=== PATIENT | male | born 1960 | race Caucasian/White ===

== ENCOUNTER 2021-08-01 17:26 | Inpatient (IN) | payer SELFPAY ==
[~2021-08-01] VITALS: Ht 188 cm; Wt 80.9 kg
[2021-08-01 18:00] LABS: BASO % 0 % (0-3); EOS # 0.1 x10^3/uL (0.0-0.7); EOS % 1 % (0-3); HEMATOCRIT 37.6 % (39.0-53.0); HEMOGLOBIN 12.6 g/dL (13.0-17.5); LYMPH # 1.3 x10^3/uL (1.0-4.8); LYMPH % 11 % (24-48); MEAN CORPUSCULAR HEMOGLOBIN 32 pg (25-35); MEAN CORPUSCULAR HGB CONC 34 g/dL (31-37); MEAN CORPUSCULAR VOLUME 96 fL (79-100); MONO # 0.8 x10^3/uL (0.0-1.1); MONO % 7 % (0-9); NEUT # 9.7 x10^3/uL (1.8-7.7); NEUT % 81 % (31-73); PLATELET COUNT 353 x10^3/uL (140-400); RED BLOOD COUNT 3.94 x10^6/uL (4.30-5.70); RED CELL DISTRIBUTION WIDTH 14.9 % (11.5-14.5); WHITE BLOOD COUNT 11.9 x10^3/uL (4.0-11.0)
[2021-08-01 18:02] LABS: BILIRUBIN,URINE NEGATIVE (NEG); CLARITY,URINE CLOUDY; COLOR,URINE YELLOW; NITRITE,URINE POSITIVE (NEG); PROTEIN,URINE 100 mg/dL (NEG-TRACE); UROBILINOGEN,URINE 0.2 mg/dL (0.2 mg/dL)
[2021-08-01 18:20] LABS: INFLUENZA A PATIENT NEGATIVE (NEGATIVE); INFLUENZA B PATIENT NEGATIVE (NEGATIVE)
[2021-08-01 18:22] LABS: BACTERIA,URINE MODERATE /HPF (0-FEW); WBC,URINE >40 /HPF (0-4)
[2021-08-01 18:23] LABS: RBC,URINE RARE /HPF (0-2)
[2021-08-01 18:24] LABS: CALCIUM 8.6 mg/dL (8.5-10.1); CREATININE 3.6 mg/dL (0.7-1.3); GFR 17.3; POTASSIUM 4.7 mmol/L (3.5-5.1)
[2021-08-01 18:30] LABS: ALBUMIN 3.7 g/dL (3.4-5.0); ALBUMIN/GLOBULIN RATIO 0.9 (1.0-1.7); MAGNESIUM 1.5 mg/dL (1.8-2.4); TOTAL BILIRUBIN 0.2 mg/dL (0.2-1.0); TOTAL PROTEIN 7.9 g/dL (6.4-8.2)
[2021-08-01 18:57] LABS: BASE EXCESS ABG -3 mmol/L (-3-3); FIO2 ABG 5L NC; HCO3 ABG 22 mmol/L (21-28); PCO2 ABG 40 mmHg (35-46); PO2 ABG 139 mmHg (65-108); SAT O2 ABG 98 % (92-99)
[2021-08-01] MEDS ORDERED: FUROSEMIDE 40 MG/4 ML VIAL. IVP ONE (19:00)
--- NOTE | 2021-08-01 19:25 | RAD ---
EXAM: AP View of the chest DATE: 08/01/2021 6:19 PM INDICATION: Reason: SHORT OF BREATH / Spl. Instructions: / History: COMPARISON: No Prior FINDINGS: The heart is not enlarged. Mediastinal and hilar contours are normal. Nodular opacity right upper lung. Emphysematous changes are seen. Nodular opacities left upper lung. No pleural effusion or pneumothorax. IMPRESSION: 1. Nodular opacity right upper lung can be further assessed by nonemergent CT. 2. Emphysematous changes are seen. Electronically signed by: Chintan Soria MD (08/01/2021 7:23 PM) LUIS FERNANDO
[2021-08-01] MEDS ORDERED: DEXTROSE 50% 25 GM / 50ML DISP.SYRIN. IV PRN (19:30)
[2021-08-01] MEDS ORDERED: SENNOSIDES 8.6 MG TABLET PO PRN (19:30)
[2021-08-01] MEDS ORDERED: PROCHLORPERAZINE 10 MG/2 ML VIAL. IV PRN (19:30)
[2021-08-01] MEDS ORDERED: DOCUSATE SODIUM 100 MG CAPSULE. PO PRN (19:30)
[2021-08-01] MEDS ORDERED: ONDANSETRON PF 4 MG/2 ML VIAL. IVP PRN ×2 (19:30→20:45)
[2021-08-01] MEDS ORDERED: ZOLPIDEM 5 MG TABLET. PO PRN (19:30)
[2021-08-01] MEDS ORDERED: LORazepam 0.5 MG TABLET PO PRN (19:30)
[2021-08-01] MEDS ORDERED: ACETAMINOPHEN 325 MG TABLET. PO PRN ×2 (19:30→20:45)
--- NOTE | 2021-08-01 19:32 | EKG ---
[facility] [address] [place] [address] Test Date: 2021-08-01 Test Time: 17:26:49 Pat Name: KAYLYN CHANCE Department: Room: Gender: M [employer] Director: : 1960 Requested By: THEODORE BARAJAS Order Number: [id number] Reading MD: Simone Baldwin Measurements Intervals [place] Rate: 98 P: 90 [place]: 126 QRS: 90 QRSD: 88 T: 50 QT: 312 QTc: 400 Interpretive Statements SINUS RHYTHM LEFT ATRIAL ABNORMALITY ABNORMAL ECG RI6.02 No previous ECG available for comparison Electronically Signed On 08-06-2021 10:07:27 MACHINE SCALLOP CUTTER by Simone Baldwin
--- NOTE | 2021-08-01 20:42 | PHYS DOC ---
Past Medical History Past Medical History: Renal Failure Past Surgical History: No Surgical History Smoking Status: Current Every Day Smoker Alcohol Use: None General Adult EDM: Chief Complaint: SHORTNESS OF BREATH HPI: HPI: Patient is a 61 year old male with history of kidney failure, urinary retention with a Vázquez catheter, current smoker, who presents to the ED today complaining of cough and shortness of breath that began yesterday and got worse today. 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 Patient denies any chest p ain, he states he has been having dry peeling skin that occurs intermittently since he was diagnosed with kidney failure. He states he is not on dialysis yet. Patient denies any fever. Review of Systems: Review of Systems: Constitutional: Denies fever or chills. [] Eyes: Denies change in visual acuity. [] HENT: Denies nasal congestion or sore throat. [] Respiratory: Reports cough and shortness of breath Cardiovascular: Denies chest pain or edema. [] GI: Denies abdominal pain, nausea, vomiting, bloody stools or diarrhea. [] : Denies dysuria. [] Musculoskeletal: Denies back pain or joint pain. [] Integument: Denies rash. [] Neurologic: Denies headache, focal weakness or sensory changes. [] Endocrine: Denies polyuria or polydipsia. [] Lymphatic: Denies swollen glands. [] Psychiatric: Denies depression or anxiety. [] Heart Score: C/O Chest Pain: N/A Risk Factors: Risk Factors: DM, Current or recent (<one month) smoker, HTN, HLP, family history of CAD, obesity. Risk Scores: Score 0 - 3: 2.5% MACE over next 6 weeks - Discharge Home Score 4 - 6: 20.3% MACE over next 6 weeks - Admit for Clinical Observation Score 7 - 10: 72.7% MACE over next 6 weeks - Early Invasive Strategies Current Medications: Current Medications Medications (Trade) Dose Ordered Sig/Lorenza Start Time Stop Time Status Last Admin Dose Admin Acetaminophen (Tylenol) 650 mg PRN Q4HRS PRN 08/01/21 19:30 Dextrose (Dextrose 50%-Water Syringe) 12.5 gm PRN Q15MIN PRN 08/01/21 19:30 Docusate Sodium (Colace) 100 mg PRN DAILY PRN 08/01/21 19:30 Furosemide (Lasix) 40 mg 1X ONCE 08/01/21 19:00 08/01/21 19:01 DC 08/01/21 19:09 40 MG Heparin Sodium (Porcine) (Heparin Sodium) 5,000 unit Q12HR 08/01/21 21:00 Lorazepam (Ativan Inj) 0.25 mg PRN Q4HRS PRN 08/01/21 19:30 Lorazepam (Ativan) 0.5 mg PRN Q6HRS PRN 08/01/21 19:30 Ondansetron HCl (Zofran) 4 mg PRN Q6HRS PRN 08/01/21 19:30 Prochlorperazine Edisylate (Compazine) 10 mg PRN Q6HRS PRN 08/01/21 19:30 Sennosides (Senna) 17.2 mg PRN BID PRN 08/01/21 19:30 Zolpidem Tartrate (Ambien) 2.5 mg PRN QHS PRN 08/01/21 19:30 Allergies: Allergies: Allergies Coded Allergies Type Severity Reaction Last Updated Verified No Known Drug Allergies 08/01/21 No Physical Exam: PE: Constitutional: Well developed, well nourished, no acute distress, non-toxic appearance. [] HENT: Normocephalic, atraumatic, bilateral external ears normal, oropharynx moist, no oral exudates, nose normal. [] Eyes: PERRLA, EOMI, conjunctiva normal, no discharge. [] Neck: Normal range of motion, no tenderness, supple, no stridor. [] Cardiovascular: Tachycardic Lungs & Thorax: Tachypneic, crackles and wheezing posterior lung bases Abdomen: Bowel sounds normal, soft, no tenderness, no masses, no pulsatile masses. [] Vázquez catheter present with the leg bag Skin: Very dry scaly skin peeling Back: No tenderness, no CVA tenderness. [] Extremities: No tenderness, no cyanosis, no clubbing, ROM intact, no edema. [] Neurologic: Alert and oriented X 3, normal motor function, normal sensory function, no focal deficits noted. [] Psychologic: Affect normal, judgement normal, mood normal. [] Current Patient Data: Labs: Laboratory Tests Test 08/01/21 17:35 08/01/21 17:50 08/01/21 18:10 White Blood Count 11.9 x10^3/uL (4.0-11.0) H Red Blood Count 3.94 x10^6/uL (4.30-5.70) L Hemoglobin 12.6 g/dL (13.0-17.5) L Hematocrit 37.6 % (39.0-53.0) L Mean Corpuscular Volume 96 fL (79-100) Mean Corpuscular Hemoglobin 32 pg (25-35) Mean Corpuscular Hemoglobin Concent 34 g/dL (31-37) Red Cell Distribution Width 14.9 % (11.5-14.5) H Platelet Count 353 x10^3/uL (140-400) Neutrophils (%) (Auto) 81 % (31-73) H Lymphocytes (%) (Auto) 11 % (24-48) L Monocytes (%) (Auto) 7 % (0-9) Eosinophils (%) (Auto) 1 % (0-3) Basophils (%) (Auto) 0 % (0-3) Neutrophils # (Auto) 9.7 x10^3/uL (1.8-7.7) H Lymphocytes # (Auto) 1.3 x10^3/uL (1.0-4.8) Monocytes # (Auto) 0.8 x10^3/uL (0.0-1.1) Eosinophils # (Auto) 0.1 x10^3/uL (0.0-0.7) Basophils # (Auto) 0.0 x10^3/uL (0.0-0.2) D-Dimer (Cira) 0.93 ug/mlFEU (0.00-0.50) H Urine Collection Type Unknown Urine Color Yellow Urine Clarity Cloudy Urine pH 6.0 (<5.0-8.0) Urine Specific [place] 1.010 (1.000-1.030) Urine Protein 100 mg/dL (NEG-TRACE) Urine Glucose (UA) Negative mg/dL (NEG) Urine Ketones (Stick) Negative mg/dL (NEG) Urine Blood Small (NEG) Urine Nitrite Positive (NEG) Urine Bilirubin Negative (NEG) Urine Urobilinogen Dipstick 0.2 mg/dL (0.2 mg/dL) Urine Leukocyte Esterase Large (NEG) Urine RBC Rare /HPF (0-2) Urine WBC >40 /HPF (0-4) Urine Squamous Epithelial Cells Occ /LPF Urine Bacteria Moderate /HPF (0-FEW) Urine Mucus Slight /LPF Sodium Level 145 mmol/L (136-145) Potassium Level 4.7 mmol/L (3.5-5.1) Chloride Level 104 mmol/L (98-107) Carbon Dioxide Level 26 mmol/L (21-32) Anion Gap 15 (6-14) H Blood Urea Nitrogen 44 mg/dL (8-26) H Creatinine 3.6 mg/dL (0.7-1.3) H Estimated GFR (Cockcroft-Gault) 17.3 BUN/Creatinine Ratio 12 (6-20) Glucose Level 110 mg/dL (70-99) H Lactic Acid Level 1.1 mmol/L (0.4-2.0) Calcium Level 8.6 mg/dL (8.5-10.1) Magnesium Level 1.5 mg/dL (1.8-2.4) L Total Bilirubin 0.2 mg/dL (0.2-1.0) Aspartate Amino Transferase (AST) 13 U/L (15-37) L Alanine Aminotransferase (ALT) 23 U/L (16-63) Alkaline Phosphatase 121 U/L (46-116) H Creatine Kinase 75 U/L (39-308) Creatine Kinase MB (Mass) 3.6 ng/mL (0.0-3.6) Creatine Kinase MB Relative Index 4.8 % (0-4) H Troponin I High Sensitivity 14 ng/L (4-75) OC-Mhu-K-Type Natriuretic Peptide 6674 pg/mL (0-124) H Total Protein 7.9 g/dL (6.4-8.2) Albumin 3.7 g/dL (3.4-5.0) Albumin/Globulin Ratio 0.9 (1.0-1.7) L Procalcitonin 0.12 ng/mL (0.00-0.10) H Influenza Type A Antigen Negative (NEGATIVE) Influenza Type B Antigen Negative (NEGATIVE) SARS-CoV-2 Antigen (Rapid) Negative (NEGATIVE) O2 Saturation 98 % (92-99) Arterial Blood pH 7.36 (7.35-7.45) Arterial Blood pCO2 at Patient Temp 40 mmHg (35-46) Arterial Blood pO2 at Patient Temp 139 mmHg (65-108) H Arterial Blood HCO3 22 mmol/L (21-28) Arterial Blood Base Excess -3 mmol/L (-3-3) FiO2 5l nc Laboratory Tests 08/01/21 17:35 Laboratory Tests 08/01/21 17:35 Vital Signs: Vital Signs Date Time Temp Pulse Resp B/P (MAP) Pulse Ox O2 Delivery O2 Flow Rate FiO2 08/01/21 17:46 99.0 109 33 184/93 (123) 97 Aerosol Mask 6.0 99.0 EKG: EK interpreted by Dr. Bermudez sinus rhythm heart rate 98 no STEMI [] Radiology/Procedures: Radiology/Procedures: []PROCEDURE: PORTABLE CHEST 1V EXAM: AP View of the chest DATE: 08/01/2021 6:19 PM INDICATION: Reason: SHORT OF BREATH / Spl. Instructions: / History: COMPARISON: No Prior FINDINGS: The heart is not enlarged. Mediastinal and hilar contours are normal. Nodular opacity right upper lung. Emphysematous changes are seen. Nodular opacities left upper lung. No pleural effusion or pneumothorax. IMPRESSION: 1. Nodular opacity right upper lung can be further assessed by nonemergent CT. 2. Emphysematous changes are seen. Electronically signed by: Chintan Chang MD (08/01/2021 7:23 PM) [facility] DICTATED and SIGNED BY: CHINTAN CHANG MD DATE: 08/01/21 [id number] 0 Course & Med Decision Making: Course & Med Decision Making Pertinent Labs and Imaging studies reviewed. 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 Patient arrives in the ED on 6 L of oxygen with O2 sats of 97%. He was given DuoNeb treatment x2 by EMS. Temperature 99.0, heart rate 109, respiration 33, blood pressure 184/93. Patient continued to be short of breath on arrival to the ED. Blood gas was obtained and he was put on a nonrebreather. He actually improved his respiration rate and O2 sats remained above 95%. We will wean him off the nonrebreather if he continues to improve Chest x-ray noted for emphysema and right upper lung nodule CBC with a WBC of 11.9, hemoglobin 12.6 with hematocrit of 37.6, BNP 6674, patient produces urine, he was given furosemide IV. Creatinine 3.6 with BUN of 44. D-dimer 0.93, VQ scan was ordered. Lactic is normal. Negative influenza A or B, negative rapid Covid. Initial UA was obtained from a Vázquez bag because patient had refused to have us to change his Vázquez catheter. He eventually accepted to have the Vázquez catheter changed and a new bag replaced, urine positive for UTI. Started on Rocephin. Spoke to Dr. Matt who accepted patient for admission, routine consult placed for nephrology Nayeli Disclaimer: Nayeli Disclaimer: This electronic medical record was generated, in whole or in part, using a voice recognition dictation system. Departure Departure Impression: Primary Impression: SOB (shortness of breath) Additional Impressions: CRF (chronic renal failure) Qualified Codes: N18.9 - Chronic kidney disease, unspecified Fluid overload Qualified Codes: E87.70 - Fluid overload, unspecified Emphysema lung Qualified Codes: J43.8 - Other emphysema Nodule of right lung Smoking addiction Disposition: ADMITTED INPATIENT Condition: STABLE Referrals: UNKNOWN PCP NAME (PCP) THEODORE BARAJAS VICE PRESIDENT AND PORTFOLIO MANAGER Aug 01, 2021 20:42
[2021-08-01] MEDS ORDERED: MORPHINE SULFATE 2 MG/ML INJ. IVP PRN (20:45)
[2021-08-01 20:49] LABS: BILIRUBIN,URINE NEGATIVE (NEG); CLARITY,URINE CLEAR; NITRITE,URINE NEGATIVE (NEG); PROTEIN,URINE NEGATIVE (NEG-TRACE); UROBILINOGEN,URINE 0.2 mg/dL (0.2 mg/dL)
[2021-08-01 20:52] LABS: COLOR,URINE STRAW
[2021-08-01 20:57] LABS: BACTERIA,URINE 0 /HPF (0-FEW); WBC,URINE 20-40 /HPF (0-4)
[2021-08-01 21:10] VITALS: BP 174/83
--- NOTE | 2021-08-01 21:30 | NUR ---
Admit from ER to [address] [place] [address] via [facility]. A/O x 4 on arrival. Pleasant. Very SOB. Wheezing. Claims he feels much better now. O2 4L NC in place. Does not use home O2. Transferred self from [facility] to bed by sliding over independently. Did have to rest to get his breath but is able to converse. 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 Alligator skin like rash noted all over body. Very dry and scaly. Explains he has had this rash in the past and he believes this is a cause from his chronic renal failure. Comes to ER with chronic Vázquez. RN replaced Vázquez while in ER. Orientated to room and call light. Reviewed POC to include O2, Tele Monitor, Lab Draws and Consults. Verbalized understanding. Resting in bed with call light at hand.
[2021-08-01] MEDS: HEPARIN for SUB-Q USE 5,000 UNIT/ML VIAL. SQ SCH (22:17)
[2021-08-01 23:00] VITALS: BP 133/67
[2021-08-02] MEDS ORDERED: cefTRIAXone IV Push 1 GM VIAL. IVP ONE (00:30)
[2021-08-02 03:00] VITALS: BP 128/69
[2021-08-02 04:13] LABS: BASO % 0 % (0-3); EOS # 0.2 x10^3/uL (0.0-0.7); EOS % 2 % (0-3); HEMATOCRIT 32.2 % (39.0-53.0); HEMOGLOBIN 10.4 g/dL (13.0-17.5); LYMPH # 1.3 x10^3/uL (1.0-4.8); LYMPH % 11 % (24-48); MEAN CORPUSCULAR HEMOGLOBIN 31 pg (25-35); MEAN CORPUSCULAR HGB CONC 32 g/dL (31-37); MEAN CORPUSCULAR VOLUME 97 fL (79-100); MONO # 0.8 x10^3/uL (0.0-1.1); MONO % 7 % (0-9); NEUT # 9.6 x10^3/uL (1.8-7.7); NEUT % 80 % (31-73); PLATELET COUNT 318 x10^3/uL (140-400); RED BLOOD COUNT 3.32 x10^6/uL (4.30-5.70); RED CELL DISTRIBUTION WIDTH 14.8 % (11.5-14.5)
[2021-08-02 04:28] LABS: CALCIUM 8.1 mg/dL (8.5-10.1); CREATININE 3.7 mg/dL (0.7-1.3); GFR 16.7; MAGNESIUM 1.5 mg/dL (1.8-2.4); PHOSPHORUS 5.3 mg/dL (2.6-4.7); POTASSIUM 4.7 mmol/L (3.5-5.1)
[2021-08-02 07:00] VITALS: BP 163/84
--- NOTE | 2021-08-02 08:28 | PDOC1 ---
History and Physical Date of Service: DOS: DATE: 08/02/21 TIME: 08:22 Chief Complaint: Chief Complain: Shortness of breath History of Present Illness: HPI: History obtained from discussion with the ED physician and chart review: 61-year-old male with no known significant past medical history except for possible kidney damage and coming in with chronic indwelling Vázquez catheter that was placed in February. Patient is a poor historian and he also has a long history of smoking. 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 Patient also has been endorsing a productive cough but he feels relatively fine and does not have any flulike symptoms. Denies fevers, nausea vomiting, abdominal pain, hematuria or bloody bowel movements. When his Vázquez was placed he states that he had low flow did not have any relief from voiding. He does state that his urine was dribbling at the time of H&P. No history of prostate cancer. He also endorses that he has been having flaky skin throughout his whole body ever since he was diagnosed with his kidney issue. Past Medical/Surgical History: PMH/PSH: Past Medical History: Renal Failure Past Surgical History: No Surgical History Allergies: Allergies: Coded Allergies: No Known Drug Allergies (Unverified , 08/01/21) Family History: Family History: Reviewed with no relevant findings Social History: Social History: Smoking Status: Current Every Day Smoker Alcohol Use: None Current Medications: Current Medications Current Medications Furosemide (Lasix) 40 mg 1X ONCE IVP Last administered on 08/01/21at 19:09; Start 08/01/21 at 19:00; Stop 08/01/21 at 19:01; Status DC Sennosides (Senna) 17.2 mg PRN BID PRN PO CONSTIPATION; Start 08/01/21 at 19:30 Docusate Sodium (Colace) 100 mg PRN DAILY PRN PO HARD STOOLS; Start 08/01/21 at 19:30 Ondansetron HCl (Zofran) 4 mg PRN Q6HRS PRN IVP NAUSEA/VOMITING, 1ST CHOICE; Start 08/01/21 at 19:30 Dextrose (Dextrose 50%-Water Syringe) 12.5 gm PRN Q15MIN PRN IV SEE COMMENTS; Start 08/01/21 at 19:30 Acetaminophen (Tylenol) 650 mg PRN Q4HRS PRN PO TEMP OVER 100.4F OR MILD PAIN; Start 08/01/21 at 19:30 Lorazepam (Ativan) 0.5 mg PRN Q6HRS PRN PO ANXIETY / AGITATION; Start 08/01/21 at 19:30 Lorazepam (Ativan Inj) 0.25 mg PRN Q4HRS PRN IV ANXIETY / AGITATION; Start 08/01/21 at 19:30 Heparin Sodium (Porcine) (Heparin Sodium) 5,000 unit Q12HR SQ Last administered on 08/01/21at 22:17; Start 08/01/21 at 21:00 Prochlorperazine Edisylate (Compazine) 10 mg PRN Q6HRS PRN IV NAUSEA/VOMITING, 2ND CHOICE; Start 08/01/21 at 19:30 Zolpidem Tartrate (Ambien) 2.5 mg PRN QHS PRN PO INSOMNIA; Start 08/01/21 at 19:30 Ondansetron HCl (Zofran) 4 mg PRN Q8HRS PRN IVP NAUSEA/VOMITING; Start 08/01/21 at 20:45; Stop 08/02/21 at 20:44 Morphine Sulfate (Morphine Sulfate) 2 mg PRN Q2HR PRN IVP PAIN; Start 08/01/21 at 20:45; Stop 08/02/21 at 20:44 Acetaminophen (Tylenol) 650 mg PRN Q4HRS PRN PO FEVER > 100.3'F; Start 08/01/21 at 20:45; Stop 08/02/21 at 20:44 Ceftriaxone Sodium (Rocephin) 1 gm 1X ONCE IVP Last administered on 08/02/21at 00:38; Start 08/02/21 at 00:30; Stop 08/02/21 at 00:31; Status DC Active Scripts Active Reported No Known Medications Prior To Admisstion (Info) Each 1 Each DAILY ROS: Review of Systems Review of System REVIEW OF SYSTEMS: GENERAL: Denies weakness SKIN: No bruising, hair changes or rashes. EYES: No blurred, double or loss of vision. NOSE AND THROAT: No history of nosebleeds, hoarseness or sore throat. HEART: No history of palpitations, chest pain or shortness of breath on exertion. LUNGS: Positive shortness of breath GASTROINTESTINAL: Denies changes in appetite, nausea, vomiting, diarrhea or constipation. GENITOURINARY: No history of frequency, urgency, hesitancy or nocturia. NEUROLOGIC: Denies history of numbness, tingling, or tremor. PSYCHIATRIC: No history of panic, anxiety or depression. ENDOCRINE: No history of heat or cold intolerance, polyuria or polydipsia. EXTREMITIES: Denies joint pain, pain on walking or stiffness. Physical Exam: Vital Signs: Vital Signs Date Time Temp Pulse Resp B/P (MAP) Pulse Ox O2 Delivery O2 Flow Rate FiO2 08/02/21 07:00 98.2 163/84 (110) 99 Nasal Cannula 4.0 98.2 08/02/21 03:00 93 18 Physcial Exam: General: Well developed, well nourished, no acute distress, well appearing HEENT: Pupils equally round and reactive to light, EOMI, no discharge, normal conjunctiva Neck: Supple, no nuchal rigidity, no JVD, trachea midline, no tenderness Cardiac: RRR, no murmurs, no gallops, no rubs Chest/Lungs: CTAB, no wheeze, no rhonchi, no crackles Abdomen: soft, non-distended, no guarding, no peritoneal signs, non-tender Back: No tenderness Extremities: Flaky skin throughout his extremities. Hyperpigmentation and some warmth. No blanching erythema. Neuro: Alert and oriented x 4, no focal deficits, normal speech Labs: Labs: Laboratory Tests Test 08/01/21 17:35 08/01/21 17:50 08/01/21 18:10 08/01/21 20:40 White Blood Count 11.9 x10^3/uL (4.0-11.0) Red Blood Count 3.94 x10^6/uL (4.30-5.70) Hemoglobin 12.6 g/dL (13.0-17.5) Hematocrit 37.6 % (39.0-53.0) Mean Corpuscular Volume 96 fL (79-100) Mean Corpuscular Hemoglobin 32 pg (25-35) Mean Corpuscular Hemoglobin Concent 34 g/dL (31-37) Red Cell Distribution Width 14.9 % (11.5-14.5) Platelet Count 353 x10^3/uL (140-400) Neutrophils (%) (Auto) 81 % (31-73) Lymphocytes (%) (Auto) 11 % (24-48) Monocytes (%) (Auto) 7 % (0-9) Eosinophils (%) (Auto) 1 % (0-3) Basophils (%) (Auto) 0 % (0-3) Neutrophils # (Auto) 9.7 x10^3/uL (1.8-7.7) Lymphocytes # (Auto) 1.3 x10^3/uL (1.0-4.8) Monocytes # (Auto) 0.8 x10^3/uL (0.0-1.1) Eosinophils # (Auto) 0.1 x10^3/uL (0.0-0.7) Basophils # (Auto) 0.0 x10^3/uL (0.0-0.2) D-Dimer (Cira) 0.93 ug/mlFEU (0.00-0.50) Urine Collection Type Unknown Unknown Urine Color Yellow Straw Urine Clarity Cloudy Clear Urine pH 6.0 (<5.0-8.0) 6.0 (<5.0-8.0) Urine Specific [place] 1.010 (1.000-1.030) <=1.005 (1.000-1.030) Urine Protein 100 mg/dL (NEG-TRACE) Negative mg/dL (NEG-TRACE) Urine Glucose (UA) Negative mg/dL (NEG) Negative mg/dL (NEG) Urine Ketones (Stick) Negative mg/dL (NEG) Negative mg/dL (NEG) Urine Blood Small (NEG) Moderate (NEG) Urine Nitrite Positive (NEG) Negative (NEG) Urine Bilirubin Negative (NEG) Negative (NEG) Urine Urobilinogen Dipstick 0.2 mg/dL (0.2 mg/dL) 0.2 mg/dL (0.2 mg/dL) Urine Leukocyte Esterase Large (NEG) Moderate (NEG) Urine RBC Rare /HPF (0-2) 3-5 /HPF (0-2) Urine WBC >40 /HPF (0-4) 20-40 /HPF (0-4) Urine Squamous Epithelial Cells Occ /LPF Urine Bacteria Moderate /HPF (0-FEW) 0 /HPF (0-FEW) Urine Mucus Slight /LPF Sodium Level 145 mmol/L (136-145) Potassium Level 4.7 mmol/L (3.5-5.1) Chloride Level 104 mmol/L (98-107) Carbon Dioxide Level 26 mmol/L (21-32) Anion Gap 15 (6-14) Blood Urea Nitrogen 44 mg/dL (8-26) Creatinine 3.6 mg/dL (0.7-1.3) Estimated GFR (Cockcroft-Gault) 17.3 BUN/Creatinine Ratio 12 (6-20) Glucose Level 110 mg/dL (70-99) Lactic Acid Level 1.1 mmol/L (0.4-2.0) Calcium Level 8.6 mg/dL (8.5-10.1) Magnesium Level 1.5 mg/dL (1.8-2.4) Total Bilirubin 0.2 mg/dL (0.2-1.0) Aspartate Amino Transf (AST/SGOT) 13 U/L (15-37) Alanine Aminotransferase (ALT/SGPT) 23 U/L (16-63) Alkaline Phosphatase 121 U/L (46-116) Creatine Kinase 75 U/L (39-308) Creatine Kinase MB (Mass) 3.6 ng/mL (0.0-3.6) Creatine Kinase MB Relative Index 4.8 % (0-4) Troponin I High Sensitivity 14 ng/L (4-75) 20 ng/L (4-75) CY-Ckn-X-Type Natriuretic Peptide 6674 pg/mL (0-124) Total Protein 7.9 g/dL (6.4-8.2) Albumin 3.7 g/dL (3.4-5.0) Albumin/Globulin Ratio 0.9 (1.0-1.7) Procalcitonin 0.12 ng/mL (0.00-0.10) Influenza Type A Antigen Negative (NEGATIVE) Influenza Type B Antigen Negative (NEGATIVE) SARS-CoV-2 Antigen (Rapid) Negative (NEGATIVE) O2 Saturation 98 % (92-99) Arterial Blood pH 7.36 (7.35-7.45) Arterial Blood pCO2 at Patient Temp 40 mmHg (35-46) Arterial Blood pO2 at Patient Temp 139 mmHg (65-108) Arterial Blood HCO3 22 mmol/L (21-28) Arterial Blood Base Excess -3 mmol/L (-3-3) FiO2 5l nc Urine Transitional Epithelial Cells Few /LPF Test 08/01/21 23:45 08/02/21 02:45 Troponin I High Sensitivity 20 ng/L (4-75) White Blood Count 12.0 x10^3/uL (4.0-11.0) Red Blood Count 3.32 x10^6/uL (4.30-5.70) Hemoglobin 10.4 g/dL (13.0-17.5) Hematocrit 32.2 % (39.0-53.0) Mean Corpuscular Volume 97 fL (79-100) Mean Corpuscular Hemoglobin 31 pg (25-35) Mean Corpuscular Hemoglobin Concent 32 g/dL (31-37) Red Cell Distribution Width 14.8 % (11.5-14.5) Platelet Count 318 x10^3/uL (140-400) Neutrophils (%) (Auto) 80 % (31-73) Lymphocytes (%) (Auto) 11 % (24-48) Monocytes (%) (Auto) 7 % (0-9) Eosinophils (%) (Auto) 2 % (0-3) Basophils (%) (Auto) 0 % (0-3) Neutrophils # (Auto) 9.6 x10^3/uL (1.8-7.7) Lymphocytes # (Auto) 1.3 x10^3/uL (1.0-4.8) Monocytes # (Auto) 0.8 x10^3/uL (0.0-1.1) Eosinophils # (Auto) 0.2 x10^3/uL (0.0-0.7) Basophils # (Auto) 0.0 x10^3/uL (0.0-0.2) Sodium Level 144 mmol/L (136-145) Potassium Level 4.7 mmol/L (3.5-5.1) Chloride Level 106 mmol/L (98-107) Carbon Dioxide Level 27 mmol/L (21-32) Anion Gap 11 (6-14) Blood Urea Nitrogen 44 mg/dL (8-26) Creatinine 3.7 mg/dL (0.7-1.3) Estimated GFR (Cockcroft-Gault) 16.7 Glucose Level 130 mg/dL (70-99) Calcium Level 8.1 mg/dL (8.5-10.1) Phosphorus Level 5.3 mg/dL (2.6-4.7) Magnesium Level 1.5 mg/dL (1.8-2.4) Laboratory Tests Test 08/01/21 17:35 08/01/21 17:50 08/01/21 18:10 08/01/21 20:40 White Blood Count 11.9 x10^3/uL (4.0-11.0) Red Blood Count 3.94 x10^6/uL (4.30-5.70) Hemoglobin 12.6 g/dL (13.0-17.5) Hematocrit 37.6 % (39.0-53.0) Mean Corpuscular Volume 96 fL (79-100) Mean Corpuscular Hemoglobin 32 pg (25-35) Mean Corpuscular Hemoglobin Concent 34 g/dL (31-37) Red Cell Distribution Width 14.9 % (11.5-14.5) Platelet Count 353 x10^3/uL (140-400) Neutrophils (%) (Auto) 81 % (31-73) Lymphocytes (%) (Auto) 11 % (24-48) Monocytes (%) (Auto) 7 % (0-9) Eosinophils (%) (Auto) 1 % (0-3) Basophils (%) (Auto) 0 % (0-3) Neutrophils # (Auto) 9.7 x10^3/uL (1.8-7.7) Lymphocytes # (Auto) 1.3 x10^3/uL (1.0-4.8) Monocytes # (Auto) 0.8 x10^3/uL (0.0-1.1) Eosinophils # (Auto) 0.1 x10^3/uL (0.0-0.7) Basophils # (Auto) 0.0 x10^3/uL (0.0-0.2) D-Dimer (Cira) 0.93 ug/mlFEU (0.00-0.50) Urine Collection Type Unknown Unknown Urine Color Yellow Straw Urine Clarity Cloudy Clear Urine pH 6.0 (<5.0-8.0) 6.0 (<5.0-8.0) Urine Specific [place] 1.010 (1.000-1.030) <=1.005 (1.000-1.030) Urine Protein 100 mg/dL (NEG-TRACE) Negative mg/dL (NEG-TRACE) Urine Glucose (UA) Negative mg/dL (NEG) Negative mg/dL (NEG) Urine Ketones (Stick) Negative mg/dL (NEG) Negative mg/dL (NEG) Urine Blood Small (NEG) Moderate (NEG) Urine Nitrite Positive (NEG) Negative (NEG) Urine Bilirubin Negative (NEG) Negative (NEG) Urine Urobilinogen Dipstick 0.2 mg/dL (0.2 mg/dL) 0.2 mg/dL (0.2 mg/dL) Urine Leukocyte Esterase Large (NEG) Moderate (NEG) Urine RBC Rare /HPF (0-2) 3-5 /HPF (0-2) Urine WBC >40 /HPF (0-4) 20-40 /HPF (0-4) Urine Squamous Epithelial Cells Occ /LPF Urine Bacteria Moderate /HPF (0-FEW) 0 /HPF (0-FEW) Urine Mucus Slight /LPF Sodium Level 145 mmol/L (136-145) Potassium Level 4.7 mmol/L (3.5-5.1) Chloride Level 104 mmol/L (98-107) Carbon Dioxide Level 26 mmol/L (21-32) Anion Gap 15 (6-14) Blood Urea Nitrogen 44 mg/dL (8-26) Creatinine 3.6 mg/dL (0.7-1.3) Estimated GFR (Cockcroft-Gault) 17.3 BUN/Creatinine Ratio 12 (6-20) Glucose Level 110 mg/dL (70-99) Lactic Acid Level 1.1 mmol/L (0.4-2.0) Calcium Level 8.6 mg/dL (8.5-10.1) Magnesium Level 1.5 mg/dL (1.8-2.4) Total Bilirubin 0.2 mg/dL (0.2-1.0) Aspartate Amino Transf (AST/SGOT) 13 U/L (15-37) Alanine Aminotransferase (ALT/SGPT) 23 U/L (16-63) Alkaline Phosphatase 121 U/L (46-116) Creatine Kinase 75 U/L (39-308) Creatine Kinase MB (Mass) 3.6 ng/mL (0.0-3.6) Creatine Kinase MB Relative Index 4.8 % (0-4) Troponin I High Sensitivity 14 ng/L (4-75) 20 ng/L (4-75) LZ-Wor-E-Type Natriuretic Peptide 6674 pg/mL (0-124) Total Protein 7.9 g/dL (6.4-8.2) Albumin 3.7 g/dL (3.4-5.0) Albumin/Globulin Ratio 0.9 (1.0-1.7) Procalcitonin 0.12 ng/mL (0.00-0.10) Influenza Type A Antigen Negative (NEGATIVE) Influenza Type B Antigen Negative (NEGATIVE) SARS-CoV-2 Antigen (Rapid) Negative (NEGATIVE) O2 Saturation 98 % (92-99) Arterial Blood pH 7.36 (7.35-7.45) Arterial Blood pCO2 at Patient Temp 40 mmHg (35-46) Arterial Blood pO2 at Patient Temp 139 mmHg (65-108) Arterial Blood HCO3 22 mmol/L (21-28) Arterial Blood Base Excess -3 mmol/L (-3-3) FiO2 5l nc Urine Transitional Epithelial Cells Few /LPF Test 08/01/21 23:45 08/02/21 02:45 Troponin I High Sensitivity 20 ng/L (4-75) White Blood Count 12.0 x10^3/uL (4.0-11.0) Red Blood Count 3.32 x10^6/uL (4.30-5.70) Hemoglobin 10.4 g/dL (13.0-17.5) Hematocrit 32.2 % (39.0-53.0) Mean Corpuscular Volume 97 fL (79-100) Mean Corpuscular Hemoglobin 31 pg (25-35) Mean Corpuscular Hemoglobin Concent 32 g/dL (31-37) Red Cell Distribution Width 14.8 % (11.5-14.5) Platelet Count 318 x10^3/uL (140-400) Neutrophils (%) (Auto) 80 % (31-73) Lymphocytes (%) (Auto) 11 % (24-48) Monocytes (%) (Auto) 7 % (0-9) Eosinophils (%) (Auto) 2 % (0-3) Basophils (%) (Auto) 0 % (0-3) Neutrophils # (Auto) 9.6 x10^3/uL (1.8-7.7) Lymphocytes # (Auto) 1.3 x10^3/uL (1.0-4.8) Monocytes # (Auto) 0.8 x10^3/uL (0.0-1.1) Eosinophils # (Auto) 0.2 x10^3/uL (0.0-0.7) Basophils # (Auto) 0.0 x10^3/uL (0.0-0.2) Sodium Level 144 mmol/L (136-145) Potassium Level 4.7 mmol/L (3.5-5.1) Chloride Level 106 mmol/L (98-107) Carbon Dioxide Level 27 mmol/L (21-32) Anion Gap 11 (6-14) Blood Urea Nitrogen 44 mg/dL (8-26) Creatinine 3.7 mg/dL (0.7-1.3) Estimated GFR (Cockcroft-Gault) 16.7 Glucose Level 130 mg/dL (70-99) Calcium Level 8.1 mg/dL (8.5-10.1) Phosphorus Level 5.3 mg/dL (2.6-4.7) Magnesium Level 1.5 mg/dL (1.8-2.4) Images: Images PROCEDURE: PORTABLE CHEST 1V IMPRESSION: 1. Nodular opacity right upper lung can be further assessed by nonemergent CT. 2. Emphysematous changes are seen. Assessment/Plan Assessment/Plan 92Acute hypoxic respiratory failure Concern for CAP, possible gram-negative organisms Acute on chronic kidney injury, no baseline established Hypomagnesemia Tobacco misuse History of urinary retention, concerning for BPH Nodular opacity in the right upper lung, will need CT scanning at some point as outpatient Admit to hospitalist service for further management start empiric IV antibiotics Sputum cultures Pending Legionella urine antigen and MRSA screen Nephrology consult Strict I's and O's We will continue Vázquez and start Flomax for now Avoid nephrotoxic agents Monitor urine output Post void bladder scan to rule out obstructive uropathy Pending renal ultrasound O2 supplementation to maintain O2 saturations 92% Heparin for DVT prophylaxis ADA diet CODE STATUS full Discussed with RN and SW Disposition inpatient management as above DPOA: Smoking cessation: Total time spent was 12 minutes in face to face counseling. Patient has agreed to consider nicotine patches/gum or to start on Varnicline when discharged Justifications for Admission Other Justification Acute renal failure RENNY BUSH MD Aug 02, 2021 08:28
[2021-08-02 08:52] LABS: CHOLESTEROL/HDL RATIO 3.1
--- NOTE | 2021-08-02 09:11 | PDOC2 ---
CARDIAC CONSULT DATE OF CONSULT Date of Consult DATE: 08/02/21 TIME: 09:03 REASON FOR CONSULT Reason for Consult: CHF REFERRING PHYSICIAN Referring Physician: Shaka SOURCE Source: Chart review, Patient HISTORY OF PRESENT ILLNESS HISTORY OF PRESENT ILLNESS This is a pleasant 61 yo male admitted for complains of shortness of breath and cough. No significant peripheral edema. No orthopnea. Has been having chills. Has been vaccinated x1 out of 2 for covid-19 vaccine last month due for the next one. He has chronic renal failure and appears to be worse now. He has ran out of his kidney meds 2 weeks ago. 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 He has been coughing out green phlegm. No hx of CAD, VTE or arrhythmias. Denies HLP or DM. PAST MEDICAL HISTORY Renal/: Chronic renal insuff PAST SURGICAL HISTORY Past Surgical History: No pertinent history FAMILY HISTORY Family History noncontributory to CV SOCIAL HISTORY Smoke: <1 pack per day ALCOHOL: none Drugs: None CURRENT MEDICATIONS CURRENT MEDICATIONS Current Medications Medications (Trade) Dose Ordered Sig/Lorenza Route PRN Reason Start Time Stop Time Status Last Admin Dose Admin Furosemide (Lasix) 40 mg 1X ONCE IVP 08/01/21 19:00 08/01/21 19:01 DC 08/01/21 19:09 Heparin Sodium (Porcine) (Heparin Sodium) 5,000 unit Q12HR SQ 08/01/21 21:00 08/01/21 22:17 Ceftriaxone Sodium (Rocephin) 1 gm 1X ONCE IVP 08/02/21 00:30 08/02/21 00:31 DC 08/02/21 00:38 ALLERGIES ALLERGIES: Coded Allergies: No Known Drug Allergies (Unverified , 08/01/21) ROS Review of System 14 point ROS evaluated with pertinent positives noted per HPI PHYSICAL EXAM General: Alert, Oriented X3, Cooperative, No acute distress HEENT: Atraumatic, Mucous membr. moist/pink Lungs: Other (diffuse wheeze) Heart: Regular rate (SR), Other (distant heart sounds) Abdomen: Soft Extremities: No cyanosis, No edema Skin: Other (generalized skin desqumation) Neuro: Normal speech, Sensation intact Psych/Mental Status: Mental status NL, Mood NL MUSCULOSKELETAL: Osteoarthritic changes both hands VITALS/I&O VITALS/I&O: Vital Signs Date Time Temp Pulse Resp B/P (MAP) Pulse Ox O2 Delivery O2 Flow Rate FiO2 08/02/21 07:00 98.2 163/84 (110) 99 Nasal Cannula 4.0 98.2 08/02/21 03:00 93 18 I & O 08/01/21 08/01/21 08/02/21 15:00 23:00 07:00 Intake Total 400 ml Output Total 1200 ml Balance -800 ml LABS Lab: Laboratory Tests Test 08/01/21 17:35 08/01/21 17:50 08/01/21 18:10 08/01/21 20:40 White Blood Count 11.9 x10^3/uL (4.0-11.0) H Red Blood Count 3.94 x10^6/uL (4.30-5.70) L Hemoglobin 12.6 g/dL (13.0-17.5) L Hematocrit 37.6 % (39.0-53.0) L Mean Corpuscular Volume 96 fL (79-100) Mean Corpuscular Hemoglobin 32 pg (25-35) Mean Corpuscular Hemoglobin Concent 34 g/dL (31-37) Red Cell Distribution Width 14.9 % (11.5-14.5) H Platelet Count 353 x10^3/uL (140-400) Neutrophils (%) (Auto) 81 % (31-73) H Lymphocytes (%) (Auto) 11 % (24-48) L Monocytes (%) (Auto) 7 % (0-9) Eosinophils (%) (Auto) 1 % (0-3) Basophils (%) (Auto) 0 % (0-3) Neutrophils # (Auto) 9.7 x10^3/uL (1.8-7.7) H Lymphocytes # (Auto) 1.3 x10^3/uL (1.0-4.8) Monocytes # (Auto) 0.8 x10^3/uL (0.0-1.1) Eosinophils # (Auto) 0.1 x10^3/uL (0.0-0.7) Basophils # (Auto) 0.0 x10^3/uL (0.0-0.2) D-Dimer (Cira) 0.93 ug/mlFEU (0.00-0.50) H Urine Collection Type Unknown Unknown Urine Color Yellow Straw Urine Clarity Cloudy Clear Urine pH 6.0 (<5.0-8.0) 6.0 (<5.0-8.0) Urine Specific [place] 1.010 (1.000-1.030) <=1.005 (1.000-1.030) Urine Protein 100 mg/dL (NEG-TRACE) Negative mg/dL (NEG-TRACE) Urine Glucose (UA) Negative mg/dL (NEG) Negative mg/dL (NEG) Urine Ketones (Stick) Negative mg/dL (NEG) Negative mg/dL (NEG) Urine Blood Small (NEG) Moderate (NEG) Urine Nitrite Positive (NEG) Negative (NEG) Urine Bilirubin Negative (NEG) Negative (NEG) Urine Urobilinogen Dipstick 0.2 mg/dL (0.2 mg/dL) 0.2 mg/dL (0.2 mg/dL) Urine Leukocyte Esterase Large (NEG) Moderate (NEG) Urine RBC Rare /HPF (0-2) 3-5 /HPF (0-2) Urine WBC >40 /HPF (0-4) 20-40 /HPF (0-4) Urine Squamous Epithelial Cells Occ /LPF Urine Bacteria Moderate /HPF (0-FEW) 0 /HPF (0-FEW) Urine Mucus Slight /LPF Sodium Level 145 mmol/L (136-145) Potassium Level 4.7 mmol/L (3.5-5.1) Chloride Level 104 mmol/L (98-107) Carbon Dioxide Level 26 mmol/L (21-32) Anion Gap 15 (6-14) H Blood Urea Nitrogen 44 mg/dL (8-26) H Creatinine 3.6 mg/dL (0.7-1.3) H Estimated GFR (Cockcroft-Gault) 17.3 BUN/Creatinine Ratio 12 (6-20) Glucose Level 110 mg/dL (70-99) H Lactic Acid Level 1.1 mmol/L (0.4-2.0) Calcium Level 8.6 mg/dL (8.5-10.1) Magnesium Level 1.5 mg/dL (1.8-2.4) L Total Bilirubin 0.2 mg/dL (0.2-1.0) Aspartate Amino Transferase (AST) 13 U/L (15-37) L Alanine Aminotransferase (ALT) 23 U/L (16-63) Alkaline Phosphatase 121 U/L (46-116) H Creatine Kinase 75 U/L (39-308) Creatine Kinase MB (Mass) 3.6 ng/mL (0.0-3.6) Creatine Kinase MB Relative Index 4.8 % (0-4) H Troponin I High Sensitivity 14 ng/L (4-75) 20 ng/L (4-75) FO-Vgp-C-Type Natriuretic Peptide 6674 pg/mL (0-124) H Total Protein 7.9 g/dL (6.4-8.2) Albumin 3.7 g/dL (3.4-5.0) Albumin/Globulin Ratio 0.9 (1.0-1.7) L Procalcitonin 0.12 ng/mL (0.00-0.10) H Influenza Type A Antigen Negative (NEGATIVE) Influenza Type B Antigen Negative (NEGATIVE) SARS-CoV-2 Antigen (Rapid) Negative (NEGATIVE) O2 Saturation 98 % (92-99) Arterial Blood pH 7.36 (7.35-7.45) Arterial Blood pCO2 at Patient Temp 40 mmHg (35-46) Arterial Blood pO2 at Patient Temp 139 mmHg (65-108) H Arterial Blood HCO3 22 mmol/L (21-28) Arterial Blood Base Excess -3 mmol/L (-3-3) FiO2 5l nc Urine Transitional Epithelial Cells Few /LPF Test 08/01/21 23:45 08/02/21 02:45 Troponin I High Sensitivity 20 ng/L (4-75) White Blood Count 12.0 x10^3/uL (4.0-11.0) H Red Blood Count 3.32 x10^6/uL (4.30-5.70) L Hemoglobin 10.4 g/dL (13.0-17.5) L Hematocrit 32.2 % (39.0-53.0) L Mean Corpuscular Volume 97 fL (79-100) Mean Corpuscular Hemoglobin 31 pg (25-35) Mean Corpuscular Hemoglobin Concent 32 g/dL (31-37) Red Cell Distribution Width 14.8 % (11.5-14.5) H Platelet Count 318 x10^3/uL (140-400) Neutrophils (%) (Auto) 80 % (31-73) H Lymphocytes (%) (Auto) 11 % (24-48) L Monocytes (%) (Auto) 7 % (0-9) Eosinophils (%) (Auto) 2 % (0-3) Basophils (%) (Auto) 0 % (0-3) Neutrophils # (Auto) 9.6 x10^3/uL (1.8-7.7) H Lymphocytes # (Auto) 1.3 x10^3/uL (1.0-4.8) Monocytes # (Auto) 0.8 x10^3/uL (0.0-1.1) Eosinophils # (Auto) 0.2 x10^3/uL (0.0-0.7) Basophils # (Auto) 0.0 x10^3/uL (0.0-0.2) Sodium Level 144 mmol/L (136-145) Potassium Level 4.7 mmol/L (3.5-5.1) Chloride Level 106 mmol/L (98-107) Carbon Dioxide Level 27 mmol/L (21-32) Anion Gap 11 (6-14) Blood Urea Nitrogen 44 mg/dL (8-26) H Creatinine 3.7 mg/dL (0.7-1.3) H Estimated GFR (Cockcroft-Gault) 16.7 Glucose Level 130 mg/dL (70-99) H Calcium Level 8.1 mg/dL (8.5-10.1) L Phosphorus Level 5.3 mg/dL (2.6-4.7) H Magnesium Level 1.5 mg/dL (1.8-2.4) L Triglycerides Level 66 mg/dL (0-150) Cholesterol Level 111 mg/dL (0-200) LDL Cholesterol, Calculated 62 mg/dL (0-100) VLDL Cholesterol, Calculated 13 mg/dL (0-40) Non-HDL Cholesterol Calculated 75 mg/dL (0-129) HDL Cholesterol 36 mg/dL (40-60) L Cholesterol/HDL Ratio 3.1 Thyroid Stimulating Hormone (TSH) 0.368 uIU/mL (0.358-3.74) Laboratory Tests 08/01/21 17:35 08/02/21 02:45 Laboratory Tests 08/01/21 17:35 08/02/21 02:45 ASSESSMENT/PLAN ASSESSMENT/PLAN 1. Suspect Pneumonia 2. BRANDY on CKD: unclear baseline 3. Tobaccoism with likely COPD 4. Hypomagnesemia 5. Possible chronic diastolic CHF: compensated. SOA more from #1 6. Chronic UTI with rolle with associated urinary retention Recommendations TTE, FLP Replace Mg Consult nephrology ZEHRA GRAJEDA [employer] Aug 02, 2021 09:11
--- NOTE | 2021-08-02 09:29 | PDOC2 ---
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 that began 1 day prior to presenttaing to the ER . Patient arrives in the ED on 6 L of oxygen with O2 sats of 97%. He was given DuoNeb treatment x2 by EMS. He continued to be short of breath on arrival to the ED. He was put on a nonrebreather , later improved and currently on O2 Denies any edema. No orthopnea. Denies Fever , having some chills. Denies N/V/D. No abdominal pain. He has indwelling Rolle states placed in February and was Dx with Abnormal Kidney function . Prior to that he never had any Kidney issues. He states he was Hospitalized again approx 1 mo back with decline in Kidney function from 18%--> 9% . He states rolle ws placed as he couldnt Urinate . Unable to give any more details. Denies DM, HTN . Denies Hx of Kidney stones. He takes Advil 2-7 tabs/week for headache Has been vaccinated x1 out of 2 for covid-19 vaccine last month due for the next one. Past Medical History Past Medical History Chronic renal insuff- Dx in February 2o21 per patient Family History Family History noncontributory Social History Social History Smoke: <1 pack per day ALCOHOL: none Drugs: None Current Problem List Problem List Problems Medical Problems: (1) Emphysema lung Status: Acute (2) Nodule of right lung Status: Acute (3) Smoking addiction Status: Acute Current Medications Current Medications Current Medications Furosemide (Lasix) 40 mg 1X ONCE IVP Last administered on 08/01/21at 19:09; Start 08/01/21 at 19:00; Stop 08/01/21 at 19:01; Status DC Sennosides (Senna) 17.2 mg PRN BID PRN PO CONSTIPATION; Start 08/01/21 at 19:30 Docusate Sodium (Colace) 100 mg PRN DAILY PRN PO HARD STOOLS; Start 08/01/21 at 19:30 Ondansetron HCl (Zofran) 4 mg PRN Q6HRS PRN IVP NAUSEA/VOMITING, 1ST CHOICE; Start 08/01/21 at 19:30 Dextrose (Dextrose 50%-Water Syringe) 12.5 gm PRN Q15MIN PRN IV SEE COMMENTS; Start 08/01/21 at 19:30 Acetaminophen (Tylenol) 650 mg PRN Q4HRS PRN PO TEMP OVER 100.4F OR MILD PAIN; Start 08/01/21 at 19:30 Lorazepam (Ativan) 0.5 mg PRN Q6HRS PRN PO ANXIETY / AGITATION; Start 08/01/21 at 19:30 Lorazepam (Ativan Inj) 0.25 mg PRN Q4HRS PRN IV ANXIETY / AGITATION; Start 08/01/21 at 19:30 Heparin Sodium (Porcine) (Heparin Sodium) 5,000 unit Q12HR SQ Last administered on 08/01/21at 22:17; Start 08/01/21 at 21:00 Prochlorperazine Edisylate (Compazine) 10 mg PRN Q6HRS PRN IV NAUSEA/VOMITING, 2ND CHOICE; Start 08/01/21 at 19:30 Zolpidem Tartrate (Ambien) 2.5 mg PRN QHS PRN PO INSOMNIA; Start 08/01/21 at 19:30 Ondansetron HCl (Zofran) 4 mg PRN Q8HRS PRN IVP NAUSEA/VOMITING; Start 08/01/21 at 20:45; Stop 08/02/21 at 20:44 Morphine Sulfate (Morphine Sulfate) 2 mg PRN Q2HR PRN IVP PAIN; Start 08/01/21 at 20:45; Stop 08/02/21 at 20:44 Acetaminophen (Tylenol) 650 mg PRN Q4HRS PRN PO FEVER > 100.3'F; Start 08/01/21 at 20:45; Stop 08/02/21 at 20:44 Ceftriaxone Sodium (Rocephin) 1 gm 1X ONCE IVP Last administered on 08/02/21at 00:38; Start 08/02/21 at 00:30; Stop 08/02/21 at 00:31; Status DC Magnesium Sulfate 50 ml @ 25 mls/hr 1X ONCE IV ; Start 08/02/21 at 09:30; Stop 08/02/21 at 11:29 Active Scripts Active Reported No Known Medications Prior To Admisstion (Info) Each 1 Each DAILY Allergies Allergies: Coded Allergies: No Known Drug Allergies (Unverified , 08/01/21) ROS Review of System As per HPI, rest of the ROS is negative Physical Exam Physical Exam General NAD, Propped in bed, getting Echo at bedside HEEN OM moist, On o2 by [place] \ Neck Supple Lungs CTA , Non labored CVS1 S2 Abd Soft, NT Indwelling Rolle Neuro Grossly Normal, No focal deficit Psych Cooperative Derm No Rash Vital Signs Vital Signs Date Time Temp Pulse Resp B/P (MAP) Pulse Ox O2 Delivery O2 Flow Rate FiO2 08/02/21 07:00 98.2 163/84 (110) 99 Nasal Cannula 4.0 98.2 08/02/21 03:00 93 18 Assessment & Plan ? BRADNY on CKD vs his baseline ; . Please Obtain Records from his Hospitalizations . Rolle replaced in the ER . UA sent from the bag . Supportive care, Strict I/O, Monitor , maintain fluid balance . Re-Evaluate and get Renal US if indicated Currently no emergent indication for dialysis CKD stage 4 - per Hx Obtained from patient Dx in February 2021 during Hospitalizat ion for unable to Void , requiring Rolle placement. Denies Past Hx . No HTN/DM Hospitalized again in [place] approx 1 month back with decline in Kidney function from 18 to 9%, Pt unable to give any details Etiology Suspect ? WRIGHT / Urinary retention (indwelling rolle), details unavailable Use of NSAID's Hypomagnesemia- replace UTI- On Abx per primary Ac resp Failure- Required Non rebreather in ER, currently on O2 by [place] . CxR Nodular opacity right upper lung can be further assessed by nonemergent CT. Recd 1 dose of COVID vaccine, due for 2nd . Possible chronic diastolic CHF: compensated. Labs Labs Laboratory Tests Test 08/01/21 17:35 08/01/21 17:50 08/01/21 18:10 08/01/21 20:40 White Blood Count 11.9 x10^3/uL (4.0-11.0) Red Blood Count 3.94 x10^6/uL (4.30-5.70) Hemoglobin 12.6 g/dL (13.0-17.5) Hematocrit 37.6 % (39.0-53.0) Mean Corpuscular Volume 96 fL (79-100) Mean Corpuscular Hemoglobin 32 pg (25-35) Mean Corpuscular Hemoglobin Concent 34 g/dL (31-37) Red Cell Distribution Width 14.9 % (11.5-14.5) Platelet Count 353 x10^3/uL (140-400) Neutrophils (%) (Auto) 81 % (31-73) Lymphocytes (%) (Auto) 11 % (24-48) Monocytes (%) (Auto) 7 % (0-9) Eosinophils (%) (Auto) 1 % (0-3) Basophils (%) (Auto) 0 % (0-3) Neutrophils # (Auto) 9.7 x10^3/uL (1.8-7.7) Lymphocytes # (Auto) 1.3 x10^3/uL (1.0-4.8) Monocytes # (Auto) 0.8 x10^3/uL (0.0-1.1) Eosinophils # (Auto) 0.1 x10^3/uL (0.0-0.7) Basophils # (Auto) 0.0 x10^3/uL (0.0-0.2) D-Dimer (Cira) 0.93 ug/mlFEU (0.00-0.50) Urine Collection Type Unknown Unknown Urine Color Yellow Straw Urine Clarity Cloudy Clear Urine pH 6.0 (<5.0-8.0) 6.0 (<5.0-8.0) Urine Specific [place] 1.010 (1.000-1.030) <=1.005 (1.000-1.030) Urine Protein 100 mg/dL (NEG-TRACE) Negative mg/dL (NEG-TRACE) Urine Glucose (UA) Negative mg/dL (NEG) Negative mg/dL (NEG) Urine Ketones (Stick) Negative mg/dL (NEG) Negative mg/dL (NEG) Urine Blood Small (NEG) Moderate (NEG) Urine Nitrite Positive (NEG) Negative (NEG) Urine Bilirubin Negative (NEG) Negative (NEG) Urine Urobilinogen Dipstick 0.2 mg/dL (0.2 mg/dL) 0.2 mg/dL (0.2 mg/dL) Urine Leukocyte Esterase Large (NEG) Moderate (NEG) Urine RBC Rare /HPF (0-2) 3-5 /HPF (0-2) Urine WBC >40 /HPF (0-4) 20-40 /HPF (0-4) Urine Squamous Epithelial Cells Occ /LPF Urine Bacteria Moderate /HPF (0-FEW) 0 /HPF (0-FEW) Urine Mucus Slight /LPF Sodium Level 145 mmol/L (136-145) Potassium Level 4.7 mmol/L (3.5-5.1) Chloride Level 104 mmol/L (98-107) Carbon Dioxide Level 26 mmol/L (21-32) Anion Gap 15 (6-14) Blood Urea Nitrogen 44 mg/dL (8-26) Creatinine 3.6 mg/dL (0.7-1.3) Estimated GFR (Cockcroft-Gault) 17.3 BUN/Creatinine Ratio 12 (6-20) Glucose Level 110 mg/dL (70-99) Lactic Acid Level 1.1 mmol/L (0.4-2.0) Calcium Level 8.6 mg/dL (8.5-10.1) Magnesium Level 1.5 mg/dL (1.8-2.4) Total Bilirubin 0.2 mg/dL (0.2-1.0) Aspartate Amino Transf (AST/SGOT) 13 U/L (15-37) Alanine Aminotransferase (ALT/SGPT) 23 U/L (16-63) Alkaline Phosphatase 121 U/L (46-116) Creatine Kinase 75 U/L (39-308) Creatine Kinase MB (Mass) 3.6 ng/mL (0.0-3.6) Creatine Kinase MB Relative Index 4.8 % (0-4) Troponin I High Sensitivity 14 ng/L (4-75) 20 ng/L (4-75) JP-Npb-C-Type Natriuretic Peptide 6674 pg/mL (0-124) Total Protein 7.9 g/dL (6.4-8.2) Albumin 3.7 g/dL (3.4-5.0) Albumin/Globulin Ratio 0.9 (1.0-1.7) Procalcitonin 0.12 ng/mL (0.00-0.10) Influenza Type A Antigen Negative (NEGATIVE) Influenza Type B Antigen Negative (NEGATIVE) SARS-CoV-2 Antigen (Rapid) Negative (NEGATIVE) O2 Saturation 98 % (92-99) Arterial Blood pH 7.36 (7.35-7.45) Arterial Blood pCO2 at Patient Temp 40 mmHg (35-46) Arterial Blood pO2 at Patient Temp 139 mmHg (65-108) Arterial Blood HCO3 22 mmol/L (21-28) Arterial Blood Base Excess -3 mmol/L (-3-3) FiO2 5l nc Urine Transitional Epithelial Cells Few /LPF Test 08/01/21 23:45 08/02/21 02:45 Troponin I High Sensitivity 20 ng/L (4-75) White Blood Count 12.0 x10^3/uL (4.0-11.0) Red Blood Count 3.32 x10^6/uL (4.30-5.70) Hemoglobin 10.4 g/dL (13.0-17.5) Hematocrit 32.2 % (39.0-53.0) Mean Corpuscular Volume 97 fL (79-100) Mean Corpuscular Hemoglobin 31 pg (25-35) Mean Corpuscular Hemoglobin Concent 32 g/dL (31-37) Red Cell Distribution Width 14.8 % (11.5-14.5) Platelet Count 318 x10^3/uL (140-400) Neutrophils (%) (Auto) 80 % (31-73) Lymphocytes (%) (Auto) 11 % (24-48) Monocytes (%) (Auto) 7 % (0-9) Eosinophils (%) (Auto) 2 % (0-3) Basophils (%) (Auto) 0 % (0-3) Neutrophils # (Auto) 9.6 x10^3/uL (1.8-7.7) Lymphocytes # (Auto) 1.3 x10^3/uL (1.0-4.8) Monocytes # (Auto) 0.8 x10^3/uL (0.0-1.1) Eosinophils # (Auto) 0.2 x10^3/uL (0.0-0.7) Basophils # (Auto) 0.0 x10^3/uL (0.0-0.2) Sodium Level 144 mmol/L (136-145) Potassium Level 4.7 mmol/L (3.5-5.1) Chloride Level 106 mmol/L (98-107) Carbon Dioxide Level 27 mmol/L (21-32) Anion Gap 11 (6-14) Blood Urea Nitrogen 44 mg/dL (8-26) Creatinine 3.7 mg/dL (0.7-1.3) Estimated GFR (Cockcroft-Gault) 16.7 Glucose Level 130 mg/dL (70-99) Calcium Level 8.1 mg/dL (8.5-10.1) Phosphorus Level 5.3 mg/dL (2.6-4.7) Magnesium Level 1.5 mg/dL (1.8-2.4) Triglycerides Level 66 mg/dL (0-150) Cholesterol Level 111 mg/dL (0-200) LDL Cholesterol, Calculated 62 mg/dL (0-100) VLDL Cholesterol, Calculated 13 mg/dL (0-40) Non-HDL Cholesterol Calculated 75 mg/dL (0-129) HDL Cholesterol 36 mg/dL (40-60) Cholesterol/HDL Ratio 3.1 Thyroid Stimulating Hormone (TSH) 0.368 uIU/mL (0.358-3.74) Laboratory Tests Test 08/01/21 17:35 08/01/21 17:50 08/01/21 18:10 08/01/21 20:40 White Blood Count 11.9 x10^3/uL (4.0-11.0) Red Blood Count 3.94 x10^6/uL (4.30-5.70) Hemoglobin 12.6 g/dL (13.0-17.5) Hematocrit 37.6 % (39.0-53.0) Mean Corpuscular Volume 96 fL (79-100) Mean Corpuscular Hemoglobin 32 pg (25-35) Mean Corpuscular Hemoglobin Concent 34 g/dL (31-37) Red Cell Distribution Width 14.9 % (11.5-14.5) Platelet Count 353 x10^3/uL (140-400) Neutrophils (%) (Auto) 81 % (31-73) Lymphocytes (%) (Auto) 11 % (24-48) Monocytes (%) (Auto) 7 % (0-9) Eosinophils (%) (Auto) 1 % (0-3) Basophils (%) (Auto) 0 % (0-3) Neutrophils # (Auto) 9.7 x10^3/uL (1.8-7.7) Lymphocytes # (Auto) 1.3 x10^3/uL (1.0-4.8) Monocytes # (Auto) 0.8 x10^3/uL (0.0-1.1) Eosinophils # (Auto) 0.1 x10^3/uL (0.0-0.7) Basophils # (Auto) 0.0 x10^3/uL (0.0-0.2) D-Dimer (Cira) 0.93 ug/mlFEU (0.00-0.50) Urine Collection Type Unknown Unknown Urine Color Yellow Straw Urine Clarity Cloudy Clear Urine pH 6.0 (<5.0-8.0) 6.0 (<5.0-8.0) Urine Specific [place] 1.010 (1.000-1.030) <=1.005 (1.000-1.030) Urine Protein 100 mg/dL (NEG-TRACE) Negative mg/dL (NEG-TRACE) Urine Glucose (UA) Negative mg/dL (NEG) Negative mg/dL (NEG) Urine Ketones (Stick) Negative mg/dL (NEG) Negative mg/dL (NEG) Urine Blood Small (NEG) Moderate (NEG) Urine Nitrite Positive (NEG) Negative (NEG) Urine Bilirubin Negative (NEG) Negative (NEG) Urine Urobilinogen Dipstick 0.2 mg/dL (0.2 mg/dL) 0.2 mg/dL (0.2 mg/dL) Urine Leukocyte Esterase Large (NEG) Moderate (NEG) Urine RBC Rare /HPF (0-2) 3-5 /HPF (0-2) Urine WBC >40 /HPF (0-4) 20-40 /HPF (0-4) Urine Squamous Epithelial Cells Occ /LPF Urine Bacteria Moderate /HPF (0-FEW) 0 /HPF (0-FEW) Urine Mucus Slight /LPF Sodium Level 145 mmol/L (136-145) Potassium Level 4.7 mmol/L (3.5-5.1) Chloride Level 104 mmol/L (98-107) Carbon Dioxide Level 26 mmol/L (21-32) Anion Gap 15 (6-14) Blood Urea Nitrogen 44 mg/dL (8-26) Creatinine 3.6 mg/dL (0.7-1.3) Estimated GFR (Cockcroft-Gault) 17.3 BUN/Creatinine Ratio 12 (6-20) Glucose Level 110 mg/dL (70-99) Lactic Acid Level 1.1 mmol/L (0.4-2.0) Calcium Level 8.6 mg/dL (8.5-10.1) Magnesium Level 1.5 mg/dL (1.8-2.4) Total Bilirubin 0.2 mg/dL (0.2-1.0) Aspartate Amino Transf (AST/SGOT) 13 U/L (15-37) Alanine Aminotransferase (ALT/SGPT) 23 U/L (16-63) Alkaline Phosphatase 121 U/L (46-116) Creatine Kinase 75 U/L (39-308) Creatine Kinase MB (Mass) 3.6 ng/mL (0.0-3.6) Creatine Kinase MB Relative Index 4.8 % (0-4) Troponin I High Sensitivity 14 ng/L (4-75) 20 ng/L (4-75) VY-Cua-T-Type Natriuretic Peptide 6674 pg/mL (0-124) Total Protein 7.9 g/dL (6.4-8.2) Albumin 3.7 g/dL (3.4-5.0) Albumin/Globulin Ratio 0.9 (1.0-1.7) Procalcitonin 0.12 ng/mL (0.00-0.10) Influenza Type A Antigen Negative (NEGATIVE) Influenza Type B Antigen Negative (NEGATIVE) SARS-CoV-2 Antigen (Rapid) Negative (NEGATIVE) O2 Saturation 98 % (92-99) Arterial Blood pH 7.36 (7.35-7.45) Arterial Blood pCO2 at Patient Temp 40 mmHg (35-46) Arterial Blood pO2 at Patient Temp 139 mmHg (65-108) Arterial Blood HCO3 22 mmol/L (21-28) Arterial Blood Base Excess -3 mmol/L (-3-3) FiO2 5l nc Urine Transitional Epithelial Cells Few /LPF Test 08/01/21 23:45 08/02/21 02:45 Troponin I High Sensitivity 20 ng/L (4-75) White Blood Count 12.0 x10^3/uL (4.0-11.0) Red Blood Count 3.32 x10^6/uL (4.30-5.70) Hemoglobin 10.4 g/dL (13.0-17.5) Hematocrit 32.2 % (39.0-53.0) Mean Corpuscular Volume 97 fL (79-100) Mean Corpuscular Hemoglobin 31 pg (25-35) Mean Corpuscular Hemoglobin Concent 32 g/dL (31-37) Red Cell Distribution Width 14.8 % (11.5-14.5) Platelet Count 318 x10^3/uL (140-400) Neutrophils (%) (Auto) 80 % (31-73) Lymphocytes (%) (Auto) 11 % (24-48) Monocytes (%) (Auto) 7 % (0-9) Eosinophils (%) (Auto) 2 % (0-3) Basophils (%) (Auto) 0 % (0-3) Neutrophils # (Auto) 9.6 x10^3/uL (1.8-7.7) Lymphocytes # (Auto) 1.3 x10^3/uL (1.0-4.8) Monocytes # (Auto) 0.8 x10^3/uL (0.0-1.1) Eosinophils # (Auto) 0.2 x10^3/uL (0.0-0.7) Basophils # (Auto) 0.0 x10^3/uL (0.0-0.2) Sodium Level 144 mmol/L (136-145) Potassium Level 4.7 mmol/L (3.5-5.1) Chloride Level 106 mmol/L (98-107) Carbon Dioxide Level 27 mmol/L (21-32) Anion Gap 11 (6-14) Blood Urea Nitrogen 44 mg/dL (8-26) Creatinine 3.7 mg/dL (0.7-1.3) Estimated GFR (Cockcroft-Gault) 16.7 Glucose Level 130 mg/dL (70-99) Calcium Level 8.1 mg/dL (8.5-10.1) Phosphorus Level 5.3 mg/dL (2.6-4.7) Magnesium Level 1.5 mg/dL (1.8-2.4) Triglycerides Level 66 mg/dL (0-150) Cholesterol Level 111 mg/dL (0-200) LDL Cholesterol, Calculated 62 mg/dL (0-100) VLDL Cholesterol, Calculated 13 mg/dL (0-40) Non-HDL Cholesterol Calculated 75 mg/dL (0-129) HDL Cholesterol 36 mg/dL (40-60) Cholesterol/HDL Ratio 3.1 Thyroid Stimulating Hormone (TSH) 0.368 uIU/mL (0.358-3.74) Review All relevant outside records, renal labs, imaging studies, telemetry/EKG's were reviewed. Images Images P View of the chest DATE: 08/01/2021 6:19 PM INDICATION: Reason: SHORT OF BREATH / Spl. Instructions: / History: COMPARISON: No Prior FINDINGS: The heart is not enlarged. Mediastinal and hilar contours are normal. Nodular opacity right upper lung. Emphysematous changes are seen. Nodular opacities left upper lung. No pleural effusion or pneumothorax. IMPRESSION: 1. Nodular opacity right upper lung can be further assessed by nonemergent CT. 2. Emphysematous changes are seen. BINDU SOLER MD Aug 02, 2021 09:29
[2021-08-02] MEDS ORDERED: MAGNESIUM SULFATE 2GM 50 ML IV ONE (09:30)
[2021-08-02] MEDS: HEPARIN for SUB-Q USE 5,000 UNIT/ML VIAL. SQ SCH ×2 (10:11→20:52)
[2021-08-02 11:00] VITALS: BP 154/60
--- NOTE | 2021-08-02 12:31 | CARD ---
MR#: [id number] Date of Study: 08/02/2021 Ordering Physician: ZEHRA GRAJEDA, Referring Physician: ZEHRA GRAJEDA Tech: Brian Beck [facility] APPROVED REPORT EXAM: Two-dimensional and M-mode echocardiogram with Doppler and color Doppler. Other Information Quality : AverageHR: 98bpm Rhythm : NSRTechnically limited study due to Low Windows (COPD) INDICATION Dyspnea RISK FACTORS Smoking Chronic renal failure. 2D DIMENSIONS Left Atrium(2D)3.3 (1.6-4.0cm)IVSd1.0 (0.7-1.1cm) Aortic Root(2D)3.3 (2.0-3.7cm)LVDd5.7 (3.9-5.9cm) LVOT Diameter2.3 (1.8-2.4cm)PWd1.1 (0.7-1.1cm) LVDs4.4 (2.5-4.0cm)FS (%) 22.8 % SV73.4 mlLVEF(%)45.2 (>50%) Aortic Valve AoV Peak Darnell.155.1cm/sAoV VTI29.5cm AO Peak GR.9.6mmHgLVOT Peak Darnell.130.5cm/s AO Mean GR.5mmHgAVA (VMAX)3.49cm2 Mitral Valve MV E Kblstzmv52.1cm/sMV E Peak Gr.4mmHg MV DECEL [id number] A Qorxyhte074.2cm/s MV E Mean Gr.2mmHgE/A Ratio0.8 Pulmonary Valve PV Peak Yzacubso433.4cm/s Tricuspid Valve TR P. [id number]/sTR Peak Gr.33mmHg Pulmonary Vein S1 Qfsnfacy44.5cm/sD2 Gceclpgw74.3cm/s LEFT VENTRICLE The left ventricle is normal size. There is normal left ventricular wall thickness. The left ventricu lar systolic function is mildly impaired. The Ejection Fraction is 45-50%. Transmitral Doppler flow p attern is Grade I-abnormal relaxation pattern. No left ventricle thrombus noted on this study. There is no ventricular septal defect visualized. There is no left ventricular aneurysm. There is no mass n oted in the left ventricle. RIGHT VENTRICLE The right ventricle is normal size. There is normal right ventricular wall thickness. The right ventr icular systolic function is normal. ATRIA The left atrium size is normal. The right atrium size is normal. The interatrial septum is intact wit h no evidence for an atrial septal defect or patent foramen ovale as noted on 2-D or Doppler imaging. AORTIC VALVE The aortic valve is mildly sclerotic. Doppler and Color Flow revealed no significant aortic regurgita tion. There is no significant aortic valvular stenosis. There is no aortic valvular vegetation. MITRAL VALVE The mitral valve is normal in structure and function. There is no evidence of mitral valve prolapse. There is no mitral valve stenosis. Doppler and Color Flow revealed no mitral valve regurgitation note d. TRICUSPID VALVE The tricuspid valve is normal in structure and function. Doppler and Color Flow revealed trace tricus pid regurgitation. There is no tricuspid valve prolapse or vegetation. There is no tricuspid valve st enosis. PULMONIC VALVE The pulmonic valve is not well seen. Doppler and Color Flow revealed no pulmonic valvular regurgitati on. There is no pulmonic valvular stenosis. GREAT VESSELS The aortic root is normal in size. The ascending aorta is normal in size. The IVC is normal in size a nd collapses >50% with inspiration. PERICARDIAL EFFUSION There is no pleural effusion. There is no evidence of significant pericardial effusion. Critical Notification Critical Value: No <Conclusion> The left ventricular systolic function is mildly impaired. The Ejection Fraction is 45-50%. Transmitral Doppler flow pattern is Grade I-abnormal relaxation pattern. Trace tricuspid regurgitation. There is no evidence of significant pericardial effusion. Signed by : Carlos Brandon, Electronically Approved : 08/02/2021 12:30:36
[2021-08-02] MEDS ORDERED: CALAMINE/ZINC OXIDE TOPICAL SUSPENSION 177ML BOTTLE. TP PRN (13:00)
[2021-08-02] MEDS ORDERED: AZITHROMYCIN 500 MG in IV NORMAL SALINE 250ML 250 ML IV SCH (13:00)
--- NOTE | 2021-08-02 13:19 | NUR ---
SS following for discharge planning. SS reviewed pt chart and discussed with pt RN. Pt is from home and is currently requiring oxygen at four liters nasal canula. 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 Pt has no home oxygen. COVID19 negative. Nephrology and Cardiology consulted. Wound care consulted. Pt on Pt on IV Azithromycin and IV Rocephin. PT/OT ordered. SS will continue to follow for discharge planning.
[2021-08-02 15:00] VITALS: BP 149/74
--- NOTE | 2021-08-02 15:19 | RAD ---
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 Instructions: / History: Comparison: Chest x-ray August 01, 2021 Findings: Ventilation perfusion examination was performed. Ventilation images were acquired after the patient inhaled 17 mCi of xenon. Perfusion images were acquired after the patient was injected with 5.5 mCi of technetium 99m MAA. Mild retention of radiotracer in be seen with COPD. Multiple small and medium mismatch perfusion defe cts involving all lobes predominantly within the upper lobes. Impression: 1. High probability for pulmonary embolic disease. FOR INTERNAL CODING PURPOSES Critical result: Findings discussed with patient's nurse Savanah at 08/02/2021 3:14 PM. RESULT CODE: (C) Electronically signed by: Jose Simmons DO (08/02/2021 3:16 PM) [id number]
[2021-08-02] MEDS: cefTRIAXone IV Push 1 GM VIAL. IVP SCH (16:11)
[2021-08-02] MEDS: METOPROLOL SUCC 24HR ER 25 MG TAB.ER.24H. PO SCH (16:34)
--- NOTE | 2021-08-02 16:44 | NUR ---
Wound Care: Met with patient and nurse to evaluate a skin rash. Pt states that he has been having "kidney failure" and that the rash has been recurrent, starting at his feet and sometimes spreading as far up as his neck. His legs are vinod with thick scaling skin, similar to chronic venous insufficiency or lymphatic changes. However, these characteristics are also present on his torso and arms. He states that he has used many topical OTC treatments and baby oil has been the most effective. There are no open wounds present for Wound Care to manage. Recommend dermatology referral on discharge, and something moisturizing like eucerin, baby oil, or A&D ointment.
--- NOTE | 2021-08-02 18:15 | RAD ---
EXAMINATION: US RENAL BILAT INDICATION: 61 years, Male, acute kidney injury. COMPARISON: None TECHNIQUE: Grayscale and limited color Doppler evaluation of the kidneys and bladder was performed. FINDINGS: RIGHT KIDNEY: MEASURES: 11.6 x 4.4 x 3.4 cm. MORPHOLOGY/PARENCHYMA: Normal corticomedullary differentiation with no shadowing calculus. There is a 1.0 cm minimally complex cyst with possible thin internal septations, exophytic from the upper pole. COLLECTING SYSTEM: No hydronephrosis. LEFT KIDNEY: MEASURES: 10.6 x 3.7 x 4.7 cm. MORPHOLOGY/PARENCHYMA: Normal corticomedullary differentiation with no shadowing calculus or discrete masses. COLLECTING SYSTEM: No hydronephrosis. URINARY BLADDER: Decompressed, limits evaluation. IMPRESSION: 1. No hydronephrosis in either kidney. 2. Minimally complex 4.0 cm right renal cyst. Electronically signed by: Satish Antonio MD (08/02/2021 6:13 PM) [facility]
[2021-08-02 19:15] VITALS: BP 141/81
[2021-08-02] MEDS: TAMSULOSIN 0.4 MG CAP.ER.24H. PO SCH (20:45)
[2021-08-02] MEDS: LACTOBACILLUS RHAMNOSUS GG 1 CAPSULE. PO SCH (20:45)
[2021-08-02 22:53] VITALS: BP 151/82
[2021-08-03 02:10] VITALS: BP 133/75
[2021-08-03 07:15] VITALS: BP 151/76
[2021-08-03 08:06] LABS: CALCIUM 8.3 mg/dL (8.5-10.1); CREATININE 3.9 mg/dL (0.7-1.3); GFR 15.7; MAGNESIUM 1.9 mg/dL (1.8-2.4); POTASSIUM 5.1 mmol/L (3.5-5.1)
[2021-08-03 08:08] LABS: BASO % 0 % (0-3); EOS # 1.3 x10^3/uL (0.0-0.7); EOS % 12 % (0-3); HEMATOCRIT 32.9 % (39.0-53.0); HEMOGLOBIN 10.7 g/dL (13.0-17.5); LYMPH # 0.6 x10^3/uL (1.0-4.8); LYMPH % 6 % (24-48); MEAN CORPUSCULAR HEMOGLOBIN 32 pg (25-35); MEAN CORPUSCULAR HGB CONC 33 g/dL (31-37); MEAN CORPUSCULAR VOLUME 97 fL (79-100); MONO # 0.5 x10^3/uL (0.0-1.1); MONO % 4 % (0-9); NEUT # 8.6 x10^3/uL (1.8-7.7); NEUT % 78 % (31-73); PLATELET COUNT 327 x10^3/uL (140-400); RED CELL DISTRIBUTION WIDTH 14.7 % (11.5-14.5)
[2021-08-03] MEDS: LACTOBACILLUS RHAMNOSUS GG 1 CAPSULE. PO SCH ×2 (08:22→20:51)
[2021-08-03] MEDS: METOPROLOL SUCC 24HR ER 25 MG TAB.ER.24H. PO SCH (08:23)
[2021-08-03] MEDS: HEPARIN for SUB-Q USE 5,000 UNIT/ML VIAL. SQ SCH (09:20)
--- NOTE | 2021-08-03 10:04 | PDOC ---
DATE OF SERVICE DATE: 08/03/21 TIME: 10:04 SUBJECTIVE ROS States feeling much better . No SOB, No N/V OBJECTIVE Vital Signs Vital Signs Date Time Temp Pulse Resp B/P (MAP) Pulse Ox O2 Delivery O2 Flow Rate FiO2 08/03/21 08:23 72 151/76 08/03/21 08:15 Nasal Cannula 4.0 08/03/21 07:15 97.7 20 100 97.7 I & 0 Intake and Output 08/03/21 07:00 Intake Total 2240 ml Output Total 1850 ml Balance 390 ml Intake Oral 2190 ml IV Total 50 ml Output Urine Total 1850 ml PHYSICAL EXAM Physical Exam eneral NAD, Propped in bed, getting Echo at bedside HEEN OM moist, On o2 by NC \ Neck Supple Lungs CTA , Non labored CVS1 S2 Abd Soft, NT Indwelling Rolle Neuro Grossly Normal, No focal deficit Psych Cooperative Derm No Rash DIAGNOSIS/ASSESSMENT Assessment & Plan ? BRANDY on CKD vs his baseline ; .Rolle replaced in the ER . Stable renal function Non Oliguric . Records from OSH still not available . Renal US unremarkable . 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 Denies Past Hx . No HTN/DM Hospitalized again in [place] approx 1 month back with decline in Kidney function from 18 to 9%, Pt unable to give any details Etiology Suspect ? WRIGHT / Urinary retention (indwelling rolle), details unavailable Use of NSAID's Renal cyst- Minimally complex 4.0 cm right renal cyst. Recommend Urology Follow up Hypomagnesemia- normal UTI- Cx CW Colonization . Defer to primary Ac resp Failure-stable CxR Nodular opacity right upper lung can be further assessed by nonemergent CT. Recd 1 dose of COVID vaccine, due for 2nd . Possible chronic diastolic CHF: compensated. COMMENT/RELEVANT DATA Meds Current Medications Medications (Trade) Dose Ordered Sig/Lorenza Start Time Stop Time Status Last Admin Dose Admin Acetaminophen (Tylenol) 650 mg PRN Q4HRS PRN 08/01/21 20:45 08/02/21 20:44 DC Azithromycin 500 mg/Sodium Chloride 250 ml @ 250 mls/hr Q24H 08/02/21 13:00 08/02/21 16:16 250 MLS/HR Calamine (Calamine Lotion) 1 rosalinda PRN Q4HRS PRN 08/02/21 13:00 Ceftriaxone Sodium (Rocephin) 1 gm Q24H 08/02/21 13:00 08/02/21 16:11 1 GM Dextrose (Dextrose 50%-Water Syringe) 12.5 gm PRN Q15MIN PRN 08/01/21 19:30 Docusate Sodium (Colace) 100 mg PRN DAILY PRN 08/01/21 19:30 Furosemide (Lasix) 40 mg 1X ONCE 08/01/21 19:00 08/01/21 19:01 DC 08/01/21 19:09 40 MG Heparin Sodium (Porcine) (Heparin Sodium) 5,000 unit Q12HR 08/01/21 21:00 08/03/21 09:20 5,000 UNIT Lactobacillus Rhamnosus (Culturelle) 1 cap BID 08/02/21 21:00 08/03/21 08:22 1 CAP Lorazepam (Ativan Inj) 0.25 mg PRN Q4HRS PRN 08/01/21 19:30 Lorazepam (Ativan) 0.5 mg PRN Q6HRS PRN 08/01/21 19:30 Magnesium Sulfate 50 ml @ 25 mls/hr 1X ONCE 08/02/21 09:30 08/02/21 11:29 DC 08/02/21 13:09 25 MLS/HR Metoprolol Succinate (Toprol Xl) 25 mg DAILY 08/02/21 13:00 08/03/21 08:23 25 MG Morphine Sulfate (Morphine Sulfate) 2 mg PRN Q2HR PRN 08/01/21 20:45 08/02/21 20:44 DC Ondansetron HCl (Zofran) 4 mg PRN Q8HRS PRN 08/01/21 20:45 08/02/21 20:44 DC Prochlorperazine Edisylate (Compazine) 10 mg PRN Q6HRS PRN 08/01/21 19:30 Sennosides (Senna) 17.2 mg PRN BID PRN 08/01/21 19:30 Tamsulosin HCl (Flomax) 0.4 mg QHS 08/02/21 21:00 08/02/21 20:45 0.4 MG Zolpidem Tartrate (Ambien) 2.5 mg PRN QHS PRN 08/01/21 19:30 Lab Laboratory Tests Test 08/03/21 06:30 White Blood Count 11.0 x10^3/uL (4.0-11.0) Red Blood Count 3.40 x10^6/uL (4.30-5.70) Hemoglobin 10.7 g/dL (13.0-17.5) Hematocrit 32.9 % (39.0-53.0) Mean Corpuscular Volume 97 fL (79-100) Mean Corpuscular Hemoglobin 32 pg (25-35) Mean Corpuscular Hemoglobin Concent 33 g/dL (31-37) Red Cell Distribution Width 14.7 % (11.5-14.5) Platelet Count 327 x10^3/uL (140-400) Neutrophils (%) (Auto) 78 % (31-73) Lymphocytes (%) (Auto) 6 % (24-48) Monocytes (%) (Auto) 4 % (0-9) Eosinophils (%) (Auto) 12 % (0-3) Basophils (%) (Auto) 0 % (0-3) Neutrophils # (Auto) 8.6 x10^3/uL (1.8-7.7) Lymphocytes # (Auto) 0.6 x10^3/uL (1.0-4.8) Monocytes # (Auto) 0.5 x10^3/uL (0.0-1.1) Eosinophils # (Auto) 1.3 x10^3/uL (0.0-0.7) Basophils # (Auto) 0.0 x10^3/uL (0.0-0.2) Sodium Level 141 mmol/L (136-145) Potassium Level 5.1 mmol/L (3.5-5.1) Chloride Level 106 mmol/L (98-107) Carbon Dioxide Level 26 mmol/L (21-32) Anion Gap 9 (6-14) Blood Urea Nitrogen 55 mg/dL (8-26) Creatinine 3.9 mg/dL (0.7-1.3) Estimated GFR (Cockcroft-Gault) 15.7 Glucose Level 115 mg/dL (70-99) Calcium Level 8.3 mg/dL (8.5-10.1) Magnesium Level 1.9 mg/dL (1.8-2.4) Results All relevant outside records, renal labs, imaging studies, telemetry/EKG's were reviewed. Justicifation of Admission Dx: Justifications for Admission: Justification of Admission Dx: N/A BINDU SOLER MD Aug 03, 2021 10:04
[2021-08-03 10:14] LABS: % EOS 6 % (0-5); % LYMPHS 4 % (24-48); % MONOS 4 % (0-10); % SEGS 86 % (35-66); PLT ESTIMATE ADEQUATE (ADEQUATE)
[2021-08-03 10:47] VITALS: BP_SYST 14; BP_SYST 178; BP_DIAS 77; BP_DIAS 84
--- NOTE | 2021-08-03 11:12 | NUR ---
SS following up with discharge planning. SS reviewed pt chart and discussed with pt RN. Pt is currently requiring oxygen at four liters nasal canula. COVID19 negative. Pt has no home oxygen. Pt on IV Azithromycin and IV Rocephin. Cardiology and Nephrology following. ID and Pulmonology consulted. Wound care. PT/OT ordered. OT reported no needs. SS will continue to follow for discharge planning.
--- NOTE | 2021-08-03 11:22 | PDOC ---
CARDIO Progress Notes Date and Time Date of Service 08/12/2021 Time of Evaluation 1110 Subjective Subjective: No Chest Pain, No shortness of breath, No Palpitations Vitals Vitals Vital Signs Date Time Temp Pulse Resp B/P (MAP) Pulse Ox O2 Delivery O2 Flow Rate FiO2 08/03/21 10:47 98.1 76 22 14/77 (56) 95 Nasal Cannula 4.0 98.1 Weight Weight [ ] Input and Output Intake and Output Intake and Output 08/03/21 07:00 Intake Total 2240 ml Output Total 1850 ml Balance 390 ml Intake Oral 2190 ml IV Total 50 ml Output Urine Total 1850 ml Laboratory Labs Laboratory Tests Test 08/03/21 06:30 White Blood Count 11.0 x10^3/uL (4.0-11.0) Red Blood Count 3.40 x10^6/uL (4.30-5.70) Hemoglobin 10.7 g/dL (13.0-17.5) Hematocrit 32.9 % (39.0-53.0) Mean Corpuscular Volume 97 fL (79-100) Mean Corpuscular Hemoglobin 32 pg (25-35) Mean Corpuscular Hemoglobin Concent 33 g/dL (31-37) Red Cell Distribution Width 14.7 % (11.5-14.5) Platelet Count 327 x10^3/uL (140-400) Neutrophils (%) (Auto) 78 % (31-73) Lymphocytes (%) (Auto) 6 % (24-48) Monocytes (%) (Auto) 4 % (0-9) Eosinophils (%) (Auto) 12 % (0-3) Basophils (%) (Auto) 0 % (0-3) Neutrophils # (Auto) 8.6 x10^3/uL (1.8-7.7) Lymphocytes # (Auto) 0.6 x10^3/uL (1.0-4.8) Monocytes # (Auto) 0.5 x10^3/uL (0.0-1.1) Eosinophils # (Auto) 1.3 x10^3/uL (0.0-0.7) Basophils # (Auto) 0.0 x10^3/uL (0.0-0.2) Segmented Neutrophils % 86 % (35-66) Lymphocytes % 4 % (24-48) Monocytes % 4 % (0-10) Eosinophils % 6 % (0-5) Platelet Estimate Adequate (ADEQUATE) Sodium Level 141 mmol/L (136-145) Potassium Level 5.1 mmol/L (3.5-5.1) Chloride Level 106 mmol/L (98-107) Carbon Dioxide Level 26 mmol/L (21-32) Anion Gap 9 (6-14) Blood Urea Nitrogen 55 mg/dL (8-26) Creatinine 3.9 mg/dL (0.7-1.3) Estimated GFR (Cockcroft-Gault) 15.7 Glucose Level 115 mg/dL (70-99) Calcium Level 8.3 mg/dL (8.5-10.1) Magnesium Level 1.9 mg/dL (1.8-2.4) Microbiology Micro Microbiology 08/01/21 Urine Culture - Final, Complete 08/01/21 Blood Culture - Preliminary, Resulted NO GROWTH AFTER 1 DAY Physical Exam HEENT: Neck Supple W Full Motion Chest: Symmetric LUNGS: Other (faint wheeze) Heart: RRR (SR) Abdomen: Soft N/T Extremities: No Calf Tenderness Neurology: alert, oriented, follow commands Assessment Assessment 1. Suspect Pneumonia 2. BRANDY on CKD: unclear baseline nephrology following 3. Tobaccoism with likely COPD 4. Hypomagnesemia: replaced 5. Chronic diastolic CHF: SOA more from #1 6. Chronic UTI with rolle with associated urinary retention 7. Mild CM: EF at 45-50%% Recommendations ASA, low dose metoprolol Follow up with Cardiology when he gets back to [place] Smoking cessation Continue antibotics Justicifation of Admission Dx: Justifications for Admission: Justification of Admission Dx: Yes ZEHRA GRAJEDA APRN Aug 03, 2021 11:22
--- NOTE | 2021-08-03 11:47 | PDOC ---
PULMONARY PROGRESS NOTES DATE: 08/03/21 TIME: 11:46 Vitals Vital Signs Date Time Temp Pulse Resp B/P (MAP) Pulse Ox O2 Delivery O2 Flow Rate FiO2 08/03/21 10:47 98.1 76 22 14/77 (56) 95 Nasal Cannula 4.0 98.1 Labs Laboratory Tests Test 08/01/21 17:35 08/01/21 17:50 08/01/21 18:10 08/01/21 20:40 White Blood Count 11.9 x10^3/uL (4.0-11.0) Red Blood Count 3.94 x10^6/uL (4.30-5.70) Hemoglobin 12.6 g/dL (13.0-17.5) Hematocrit 37.6 % (39.0-53.0) Mean Corpuscular Volume 96 fL (79-100) Mean Corpuscular Hemoglobin 32 pg (25-35) Mean Corpuscular Hemoglobin Concent 34 g/dL (31-37) Red Cell Distribution Width 14.9 % (11.5-14.5) Platelet Count 353 x10^3/uL (140-400) Neutrophils (%) (Auto) 81 % (31-73) Lymphocytes (%) (Auto) 11 % (24-48) Monocytes (%) (Auto) 7 % (0-9) Eosinophils (%) (Auto) 1 % (0-3) Basophils (%) (Auto) 0 % (0-3) Neutrophils # (Auto) 9.7 x10^3/uL (1.8-7.7) Lymphocytes # (Auto) 1.3 x10^3/uL (1.0-4.8) Monocytes # (Auto) 0.8 x10^3/uL (0.0-1.1) Eosinophils # (Auto) 0.1 x10^3/uL (0.0-0.7) Basophils # (Auto) 0.0 x10^3/uL (0.0-0.2) D-Dimer (Cira) 0.93 ug/mlFEU (0.00-0.50) Urine Collection Type Unknown Unknown Urine Color Yellow Straw Urine Clarity Cloudy Clear Urine pH 6.0 (<5.0-8.0) 6.0 (<5.0-8.0) Urine Specific [place] 1.010 (1.000-1.030) <=1.005 (1.000-1.030) Urine Protein 100 mg/dL (NEG-TRACE) Negative mg/dL (NEG-TRACE) Urine Glucose (UA) Negative mg/dL (NEG) Negative mg/dL (NEG) Urine Ketones (Stick) Negative mg/dL (NEG) Negative mg/dL (NEG) Urine Blood Small (NEG) Moderate (NEG) Urine Nitrite Positive (NEG) Negative (NEG) Urine Bilirubin Negative (NEG) Negative (NEG) Urine Urobilinogen Dipstick 0.2 mg/dL (0.2 mg/dL) 0.2 mg/dL (0.2 mg/dL) Urine Leukocyte Esterase Large (NEG) Moderate (NEG) Urine RBC Rare /HPF (0-2) 3-5 /HPF (0-2) Urine WBC >40 /HPF (0-4) 20-40 /HPF (0-4) Urine Squamous Epithelial Cells Occ /LPF Urine Bacteria Moderate /HPF (0-FEW) 0 /HPF (0-FEW) Urine Mucus Slight /LPF Sodium Level 145 mmol/L (136-145) Potassium Level 4.7 mmol/L (3.5-5.1) Chloride Level 104 mmol/L (98-107) Carbon Dioxide Level 26 mmol/L (21-32) Anion Gap 15 (6-14) Blood Urea Nitrogen 44 mg/dL (8-26) Creatinine 3.6 mg/dL (0.7-1.3) Estimated GFR (Cockcroft-Gault) 17.3 BUN/Creatinine Ratio 12 (6-20) Glucose Level 110 mg/dL (70-99) Lactic Acid Level 1.1 mmol/L (0.4-2.0) Calcium Level 8.6 mg/dL (8.5-10.1) Magnesium Level 1.5 mg/dL (1.8-2.4) Total Bilirubin 0.2 mg/dL (0.2-1.0) Aspartate Amino Transf (AST/SGOT) 13 U/L (15-37) Alanine Aminotransferase (ALT/SGPT) 23 U/L (16-63) Alkaline Phosphatase 121 U/L (46-116) Creatine Kinase 75 U/L (39-308) Creatine Kinase MB (Mass) 3.6 ng/mL (0.0-3.6) Creatine Kinase MB Relative Index 4.8 % (0-4) Troponin I High Sensitivity 14 ng/L (4-75) 20 ng/L (4-75) DJ-Swp-H-Type Natriuretic Peptide 6674 pg/mL (0-124) Total Protein 7.9 g/dL (6.4-8.2) Albumin 3.7 g/dL (3.4-5.0) Albumin/Globulin Ratio 0.9 (1.0-1.7) Procalcitonin 0.12 ng/mL (0.00-0.10) Influenza Type A Antigen Negative (NEGATIVE) Influenza Type B Antigen Negative (NEGATIVE) SARS-CoV-2 RNA (DMITRIY) Negative (Negative) SARS-CoV-2 Antigen (Rapid) Negative (NEGATIVE) O2 Saturation 98 % (92-99) Arterial Blood pH 7.36 (7.35-7.45) Arterial Blood pCO2 at Patient Temp 40 mmHg (35-46) Arterial Blood pO2 at Patient Temp 139 mmHg (65-108) Arterial Blood HCO3 22 mmol/L (21-28) Arterial Blood Base Excess -3 mmol/L (-3-3) FiO2 5l nc Urine Transitional Epithelial Cells Few /LPF Test 08/01/21 23:45 08/02/21 02:45 08/03/21 06:30 Troponin I High Sensitivity 20 ng/L (4-75) White Blood Count 12.0 x10^3/uL (4.0-11.0) 11.0 x10^3/uL (4.0-11.0) Red Blood Count 3.32 x10^6/uL (4.30-5.70) 3.40 x10^6/uL (4.30-5.70) Hemoglobin 10.4 g/dL (13.0-17.5) 10.7 g/dL (13.0-17.5) Hematocrit 32.2 % (39.0-53.0) 32.9 % (39.0-53.0) Mean Corpuscular Volume 97 fL (79-100) 97 fL (79-100) Mean Corpuscular Hemoglobin 31 pg (25-35) 32 pg (25-35) Mean Corpuscular Hemoglobin Concent 32 g/dL (31-37) 33 g/dL (31-37) Red Cell Distribution Width 14.8 % (11.5-14.5) 14.7 % (11.5-14.5) Platelet Count 318 x10^3/uL (140-400) 327 x10^3/uL (140-400) Neutrophils (%) (Auto) 80 % (31-73) 78 % (31-73) Lymphocytes (%) (Auto) 11 % (24-48) 6 % (24-48) Monocytes (%) (Auto) 7 % (0-9) 4 % (0-9) Eosinophils (%) (Auto) 2 % (0-3) 12 % (0-3) Basophils (%) (Auto) 0 % (0-3) 0 % (0-3) Neutrophils # (Auto) 9.6 x10^3/uL (1.8-7.7) 8.6 x10^3/uL (1.8-7.7) Lymphocytes # (Auto) 1.3 x10^3/uL (1.0-4.8) 0.6 x10^3/uL (1.0-4.8) Monocytes # (Auto) 0.8 x10^3/uL (0.0-1.1) 0.5 x10^3/uL (0.0-1.1) Eosinophils # (Auto) 0.2 x10^3/uL (0.0-0.7) 1.3 x10^3/uL (0.0-0.7) Basophils # (Auto) 0.0 x10^3/uL (0.0-0.2) 0.0 x10^3/uL (0.0-0.2) Sodium Level 144 mmol/L (136-145) 141 mmol/L (136-145) Potassium Level 4.7 mmol/L (3.5-5.1) 5.1 mmol/L (3.5-5.1) Chloride Level 106 mmol/L (98-107) 106 mmol/L (98-107) Carbon Dioxide Level 27 mmol/L (21-32) 26 mmol/L (21-32) Anion Gap 11 (6-14) 9 (6-14) Blood Urea Nitrogen 44 mg/dL (8-26) 55 mg/dL (8-26) Creatinine 3.7 mg/dL (0.7-1.3) 3.9 mg/dL (0.7-1.3) Estimated GFR (Cockcroft-Gault) 16.7 15.7 Glucose Level 130 mg/dL (70-99) 115 mg/dL (70-99) Calcium Level 8.1 mg/dL (8.5-10.1) 8.3 mg/dL (8.5-10.1) Phosphorus Level 5.3 mg/dL (2.6-4.7) Magnesium Level 1.5 mg/dL (1.8-2.4) 1.9 mg/dL (1.8-2.4) Triglycerides Level 66 mg/dL (0-150) Cholesterol Level 111 mg/dL (0-200) LDL Cholesterol, Calculated 62 mg/dL (0-100) VLDL Cholesterol, Calculated 13 mg/dL (0-40) Non-HDL Cholesterol Calculated 75 mg/dL (0-129) HDL Cholesterol 36 mg/dL (40-60) Cholesterol/HDL Ratio 3.1 Prostate Specific Antigen 1.94 ng/mL (0.00-4.00) Thyroid Stimulating Hormone (TSH) 0.368 uIU/mL (0.358-3.74) Segmented Neutrophils % 86 % (35-66) Lymphocytes % 4 % (24-48) Monocytes % 4 % (0-10) Eosinophils % 6 % (0-5) Platelet Estimate Adequate (ADEQUATE) Laboratory Tests Test 08/03/21 06:30 White Blood Count 11.0 x10^3/uL (4.0-11.0) Red Blood Count 3.40 x10^6/uL (4.30-5.70) Hemoglobin 10.7 g/dL (13.0-17.5) Hematocrit 32.9 % (39.0-53.0) Mean Corpuscular Volume 97 fL (79-100) Mean Corpuscular Hemoglobin 32 pg (25-35) Mean Corpuscular Hemoglobin Concent 33 g/dL (31-37) Red Cell Distribution Width 14.7 % (11.5-14.5) Platelet Count 327 x10^3/uL (140-400) Neutrophils (%) (Auto) 78 % (31-73) Lymphocytes (%) (Auto) 6 % (24-48) Monocytes (%) (Auto) 4 % (0-9) Eosinophils (%) (Auto) 12 % (0-3) Basophils (%) (Auto) 0 % (0-3) Neutrophils # (Auto) 8.6 x10^3/uL (1.8-7.7) Lymphocytes # (Auto) 0.6 x10^3/uL (1.0-4.8) Monocytes # (Auto) 0.5 x10^3/uL (0.0-1.1) Eosinophils # (Auto) 1.3 x10^3/uL (0.0-0.7) Basophils # (Auto) 0.0 x10^3/uL (0.0-0.2) Segmented Neutrophils % 86 % (35-66) Lymphocytes % 4 % (24-48) Monocytes % 4 % (0-10) Eosinophils % 6 % (0-5) Platelet Estimate Adequate (ADEQUATE) Sodium Level 141 mmol/L (136-145) Potassium Level 5.1 mmol/L (3.5-5.1) Chloride Level 106 mmol/L (98-107) Carbon Dioxide Level 26 mmol/L (21-32) Anion Gap 9 (6-14) Blood Urea Nitrogen 55 mg/dL (8-26) Creatinine 3.9 mg/dL (0.7-1.3) Estimated GFR (Cockcroft-Gault) 15.7 Glucose Level 115 mg/dL (70-99) Calcium Level 8.3 mg/dL (8.5-10.1) Magnesium Level 1.9 mg/dL (1.8-2.4) Medications Active Scripts Medications Dose Route/Sig Max Daily Dose Days Date Category No Known Medications Prior To Admisstion (Info) Each 1 Each DAILY 08/01/21 Reported Impression . Full consult dictated Acute pulmonary embolism Acute exacerbation of COPD Abnormal CT chest See orders GOPAL MOLINA MD Aug 03, 2021 11:47
[2021-08-03] MEDS ORDERED: HEPARIN for IV BOLUS 10,000 UNIT/10 ML VIAL. IV ONE (12:00)
[2021-08-03] MEDS: cefTRIAXone IV Push 1 GM VIAL. IVP SCH (12:26)
[2021-08-03] MEDS: HEPARIN 25,000UTS/250ML PREMIX 250 ML IV PRN (12:33)
--- NOTE | 2021-08-03 12:59 | NUR ---
DISCHARGE REPORT CALLED TO [facility] FOR TRANSFER OF CARE. TRANSPORT IS TO BE HERE FOR HER AT 1320. REPORT GIVEN, ORDERS REVEIWED, ALL QUESTIONS ANSWERED. CALLBACK NUMBER GIVEN TO RN FOR RETURN CALL IF ANY ADDITIONAL QUESTIONS.
--- NOTE | 2021-08-03 13:48 | CONS ---
DATE OF CONSULTATION: 08/03/2021 REFERRING PHYSICIAN: Dr. Matt. REASON FOR CONSULTATION: Positive blood cultures. HISTORY OF PRESENT ILLNESS: A 61-year-old male with history of kidney failure since showing of this year, urinary retention with chronic Vázquez placement, presented to the ER with complaints of cough with greenish sputum production and shortness of breath, which occurred suddenly and kept on worsening. 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 He also had dermatitis from face down to his toes, which he says occurs more whenever his kidney functions worsen. He underwent full-body bath yesterday and it improved. The patient denies any fevers, sick contact. Has received COVID vaccine a month ago. He was found to have mild leukocytosis. UA showed pyuria. Renal functions were around 3.7. The patient underwent blood cultures on 08/01 which have returned positive for gram-positive sami, 1/4 bottles. ID consultation has been requested for further evaluation and treatment. Urine cultures shows 3 or more organisms, possibly contamination. Repeat urine cultures shows the same results. The patient underwent chest x-ray, which showed nodular opacity, right upper lung emphysematous changes. Pulmonary perfusion scan showed high probability of pulmonary embolic disease. Ultrasound of the renal showed no hydronephrosis, renal cyst. The patient is currently on azithromycin and ceftriaxone. ID consultation has been requested due to gram-positive sami bacteremia. Today, the patient feels a little better. He denies any fevers, chills, nausea, vomiting, chest pain, worsening shortness of breath, cough, abdominal pain, symptoms. The rash over the body is improving. PAST MEDICAL HISTORY: Smoker, renal failure, chronic Vázquez changed during this hospitalization. ALLERGIES: No known drug allergies. FAMILY HISTORY: As per HPI. 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 CURRENT MEDICATIONS: Azithromycin and ceftriaxone. Other medications reviewed in medication list. REVIEW OF SYSTEMS: Negative except for above in HPI. PHYSICAL EXAMINATION: VITAL SIGNS: Temperature 98.1, pulse 76, respiratory rate 22, blood pressure 151/76, oxygen saturation 95% on 4 liters O2 by nasal cannula. LABORATORY DATA: WBC 11, was 12; hemoglobin 10.7;;hematocrit 32.9; platelets 327. Sodium 141, potassium 5.1, chloride 106, bicarb 26, BUN 55, creatinine 3.9, glucose 115, calcium 8.3. UA shows moderate leukocyte esterase. Serology: Influenza screen negative. COVID-19 negative. MICROBIOLOGY: Blood culture, 1/4 bottles positive for GPR, likely diphtheroids. Urine culture twice, colonization. IMAGING: Chest x-ray as above. Pulmonary perfusion imaging as above. Ultrasound as above. IMPRESSION: 1. Bacteremia, 1/4 bottles present on admission, GPR likely diphtheroids, possibly contaminant. 2. Leukocytosis. 3. Acute hypoxic respiratory failure likely PE. 4. Acute kidney injury on chronic kidney disease. 5. Urinary retention -- chronic Vázquez changed during this admission. 6. Dermatitis. 7. Urinary tract infection. Urine culture colonization. 8. Nodular opacity in right upper lung. RECOMMENDATIONS: 1. Follow up for urine legionella antigen. 2. Continue ceftriaxone and doxycycline. 3. Pulmonary and renal team are consulted. 4. Monitor labs and cultures. 5. Continue local care for the skin. 6. Diagnosis is unclear for his dermatitis at this time. 7. Discussed with RN. Thank you, Dr. Matt, for consulting Infectious Disease to participate in this patient's care. If you have any questions, do not hesitate to contact me. BETTY/JIGNESH HOGUE: Keshawn TID: [id number] AMY
[2021-08-03] MEDS ORDERED: ANTI-COAG MONITOR BY PHARMACY. MC PRN (14:30)
--- NOTE | 2021-08-03 15:06 | CONS ---
DATE OF CONSULTATION: 08/03/2021 REASON FOR CONSULTATION: The patient is seen in pulmonary consultation at the request of Dr. Matt for increasing shortness of breath. HISTORY OF PRESENT ILLNESS: The patient is a 61-year-old that has underlying history of undiagnosed COPD, quit tobacco 3 months ago, presented with increasing shortness of breath over the last several days, acute onset. 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 He was residing at a local hotel. He became short of breath, presented to the Emergency Room. He was evaluated, underwent V/Q scan. V/Q scan was personally reviewed. There is high probability findings compatible with pulmonary embolism. The patient is currently being anticoagulated. The patient states he has never had a DVT or pulmonary embolism in the past. He normally does not wear oxygen. He quit tobacco 3 months ago. Denies any paroxysmal nocturnal dyspnea, no pedal edema. He has had pedal edema for the past, but none in the last day or 2. Denies any trauma to the lower extremities. There is no prior history of DVT, pulmonary embolism, or malignancy. There is no family history of thrombophilia. PAST MEDICAL HISTORY: Chronic renal insufficiency, undiagnosed COPD, tobacco dependence in remission. PAST SURGICAL HISTORY: None. FAMILY HISTORY: Noncontributory. No family history of thrombophilia. SOCIAL HISTORY: He quit tobacco less than 3 months ago. 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 REVIEW OF SYSTEMS: CONSTITUTIONAL: No fever or chills. EYES: No change in visual acuity. HENT: No nasal congestion or sore throat. PULMONARY: As indicated above. CARDIOVASCULAR: No chest pain, no pressure. GASTROINTESTINAL: No nausea, vomiting, diarrhea. GENITOURINARY: No dysuria or frequency. MUSCULOSKELETAL: No localized muscle aches or joint pains. SKIN: No new skin rashes. NEUROLOGIC: No headaches, diplopia or blurred vision. CURRENT MEDICATIONS: List was reviewed. He is currently receiving heparin, ceftriaxone and Zithromax. ALLERGIES: No known drug allergies. PHYSICAL EXAMINATION: VITAL SIGNS: Stable. O2 saturation greater than 92%, currently on 4 liters. HEENT: Eyes: The sclerae were nonicteric. NECK: Jugular venous distention was not elevated. No lymphadenopathy. CHEST: Full expansion. LUNGS: Expiratory wheeze, coarse breath sounds. CARDIOVASCULAR: Regular rate and rhythm with S1, S2, no S3. ABDOMEN: Soft. EXTREMITIES: No clubbing, cyanosis or edema. NEUROLOGIC: Awake, alert, following commands. A detailed neuro exam was not performed. LABORATORY DATA: Labs were reviewed. SARS-CoV-2 and influenza serology was negative. Arterial blood gas pH of 7.36, pCO2 of 30-40, pO2 of 139. White count was elevated. Hemoglobin and hematocrit were noted. D-dimer was elevated. Electrolytes were noted. BUN and creatinine were elevated. BNP was elevated. IMPRESSION: 1. Acute hypoxemic respiratory failure, multifactorial. 2. Acute pulmonary embolism. 3. Acute exacerbation of chronic obstructive pulmonary disease. 4. Abnormal x-ray revealing nodular opacity right upper lobe. 5. Tobacco dependent. 6. Urinary retention. PLAN: 1. Recommend continue current support. 2. Increase heparin for treatment of pulmonary embolism. 3. Obtain CT chest. 4. IV fluids per PCP. 5. Workup for hypercoagulable state. 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 I recommend full anticoagulation for a minimum of 6 months, patient is to follow up with his PCP in [place]. I will review the CT chest and make further recommendations. I do appreciate the privilege in sharing in his care. BAILEE HOGUE: Adama TID: [id number]
[2021-08-03 15:14] VITALS: BP 177/69
--- NOTE | 2021-08-03 15:49 | PDOC ---
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 Blood cultures positive for diphtheroids species 1 out of 4 bottles Acute hypoxic respiratory failure Concern for CAP, possible gram-negative organisms Acute on chronic kidney injury, no baseline established Hypomagnesemia Tobacco misuse History of urinary retention, concerning for BPH Nodular opacity in the right upper lung, will need CT scanning at some point as outpatient We will start triamcinolone cream for dermatitis Suspicion for vasculitides will obtain HIV, RPR, acute hepatitis panel, RF and YOKO Pulmonology consult recommending to start full dose anticoagulation ID consult for positive blood cultures start empiric IV antibiotics Sputum cultures Pending Legionella urine antigen and MRSA screen Nephrology consult Strict I's and O's We will continue Vázquez and start Flomax for now Avoid nephrotoxic agents Monitor urine output Post void bladder scan to rule out obstructive uropathy Pending renal ultrasound O2 supplementation to maintain O2 saturations 92% Heparin for DVT prophylaxis ADA diet CODE STATUS full Discussed with RN and SW Disposition inpatient management as above DPOA: History of Present Illness History of Present Illness 61-year-old male with no known significant past medical history except for possible kidney damage and coming in with chronic indwelling Vázquez catheter that was placed in February. Patient is a poor historian and he also has a long history of smoking. 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 Patient also has been endorsing a productive cough but he feels relatively fine and does not have any flulike symptoms. Denies fevers, nausea vomiting, abdominal pain, hematuria or bloody bowel movements. When his Vázquez was placed he states that he had low flow did not have any relief from voiding. He does state that his urine was dribbling at the time of H&P. No history of prostate cancer. He also endorses that he has been having flaky skin throughout his whole body ever since he was diagnosed with his kidney issue. Vitals/I&O Vitals/I&O: Vital Signs Date Time Temp Pulse Resp B/P (MAP) Pulse Ox O2 Delivery O2 Flow Rate FiO2 08/03/21 15:14 97.7 90 20 177/69 (105) 97 Nasal Cannula 4.0 97.7 I & O 08/02/21 08/02/21 08/03/21 15:00 23:00 07:00 Intake Total 290 ml 240 ml 1710 ml Output Total 1000 ml 850 ml Balance 290 ml -760 ml 860 ml Physical Exam General: Alert, Oriented X3, Cooperative, No acute distress Heart: Regular rate (SR), Other (distant heart sounds) Abdomen: Soft Extremities: No cyanosis, No edema Skin: Other (generalized skin desqumation) Labs Labs: Laboratory Tests Test 08/03/21 06:30 08/03/21 06:45 White Blood Count 11.0 x10^3/uL (4.0-11.0) Red Blood Count 3.40 x10^6/uL (4.30-5.70) Hemoglobin 10.7 g/dL (13.0-17.5) Hematocrit 32.9 % (39.0-53.0) Mean Corpuscular Volume 97 fL (79-100) Mean Corpuscular Hemoglobin 32 pg (25-35) Mean Corpuscular Hemoglobin Concent 33 g/dL (31-37) Red Cell Distribution Width 14.7 % (11.5-14.5) Platelet Count 327 x10^3/uL (140-400) Neutrophils (%) (Auto) 78 % (31-73) Lymphocytes (%) (Auto) 6 % (24-48) Monocytes (%) (Auto) 4 % (0-9) Eosinophils (%) (Auto) 12 % (0-3) Basophils (%) (Auto) 0 % (0-3) Neutrophils # (Auto) 8.6 x10^3/uL (1.8-7.7) Lymphocytes # (Auto) 0.6 x10^3/uL (1.0-4.8) Monocytes # (Auto) 0.5 x10^3/uL (0.0-1.1) Eosinophils # (Auto) 1.3 x10^3/uL (0.0-0.7) Basophils # (Auto) 0.0 x10^3/uL (0.0-0.2) Segmented Neutrophils % 86 % (35-66) Lymphocytes % 4 % (24-48) Monocytes % 4 % (0-10) Eosinophils % 6 % (0-5) Platelet Estimate Adequate (ADEQUATE) Sodium Level 141 mmol/L (136-145) Potassium Level 5.1 mmol/L (3.5-5.1) Chloride Level 106 mmol/L (98-107) Carbon Dioxide Level 26 mmol/L (21-32) Anion Gap 9 (6-14) Blood Urea Nitrogen 55 mg/dL (8-26) Creatinine 3.9 mg/dL (0.7-1.3) Estimated GFR (Cockcroft-Gault) 15.7 Glucose Level 115 mg/dL (70-99) Calcium Level 8.3 mg/dL (8.5-10.1) Magnesium Level 1.9 mg/dL (1.8-2.4) Nasal Screen MRSA (PCR) Negative (NEGATIVE) Assessment and Plan Assessmemt and Plan Problems Medical Problems: (1) Emphysema lung Status: Acute (2) Nodule of right lung Status: Acute (3) Smoking addiction Status: Acute Comment Review of Relevant I have reviewed the following items jose (where applicable) has been applied. Medications: Current Medications Medications (Trade) Dose Ordered Sig/Lorenza Route PRN Reason Start Time Stop Time Status Last Admin Dose Admin Tamsulosin HCl (Flomax) 0.4 mg QHS PO 08/02/21 21:00 08/02/21 20:45 Lactobacillus Rhamnosus (Culturelle) 1 cap BID PO 08/02/21 21:00 08/03/21 08:22 Heparin Sodium (Porcine) (Heparin Sodium) 6,200 unit 1X ONCE IV 08/03/21 12:00 08/03/21 12:01 DC 08/03/21 12:32 Heparin Sodium/ Dextrose 250 ml @ 12.352 mls/ hr CONT PRN IV PER PROTOCOL 08/03/21 12:00 08/03/21 12:33 Info (Anti-Coagulation Monitoring By Pharmacy) 1 each PRN DAILY PRN MC PER PROTOCOL 08/03/21 14:30 08/03/21 14:25 Justifications for Admission Other Justification Acute renal failure RENNY BUSH MD Aug 03, 2021 15:49
--- NOTE | 2021-08-03 16:34 | RAD ---
EXAM: CT Chest without IV contrast INDICATION: Reason: opacity on cxr / Spl. Instructions: / History: TECHNIQUE: Multi-detector row CT images were acquired from the thoracic inlet through the upper abdo men without the use of IV contrast. Sagittal and coronal images were acquired from the transaxial carlota a. All CT scans performed at this facility utilize dose optimization techniques as appropriate to the exam, including the following: Automated exposure control and adjustment of the mA and/or KV accordi ng to patient size (this includes techniques or standardized protocols for targeted exams where dose is indication/reason for exam). COMPARISON: Chest radiograph 08/01/2021 FINDINGS: The absence of IV contrast limits evaluation of soft tissue pathology. LUNGS/PLEURA: Severe emphysema. There is extensive biapical pleural thickening and parenchymal fibros is/scarring with benign type calcifications interspersed with the majority of the nodular densities i n the right upper lobe. There is also calcification associated with some of the nodularity in the lef t upper lobe. There is a 7 mm nodular opacity in the right upper lobe 18/2. There are two 3 mm nonca lcified nodular opacities in the anterior right upper lobe seen on image 22/2. Subtle scattered tree- in-bud opacities involving bilateral lower lobes seen on images 30 through 46/2 on the right and on i mage 39/2 in the left lower lobe. Also very subtle tree-in-bud opacities in the right middle lobe. Th ere is mild peribronchial thickening consistent with nonspecific bronchitis. Central airways patent. No pleural effusion or focal pleural lesion. MEDIASTINUM: No pathologic mediastinal or hilar adenopathy. The thoracic aorta and pulmonary arteries are normal in caliber. The heart is normal in size. No pericardial effusion. Mild calcified coronary atherosclerosis. There is a 3 cm circumscribed hypoattenuating nodule in the left thyroid lobe. Esop hagus is unremarkable. AXILLA/SOFT TISSUE: No supraclavicular or axillary adenopathy. Regional soft tissues are within krys l limits. Diffuse bilateral gynecomastia. OSSEOUS : Mild to moderate multilevel degenerative changes of the thoracolumbar spine. No acute or german spicious osseous abnormalities. ABDOMEN: The visualized portions of the upper abdomen are unremarkable. IMPRESSION: 1. Scattered subtle tree-in-bud opacities involving bilateral lower lobes and to a lesser extent in t he right middle lobe suggestive of infectious or inflammatory bronchiolitis. Recommend short interval follow-up in 3-6 months to assess resolution. 2. Severe centrilobular emphysema with extensive biapical fibrosis/scarring with indeterminate right upper lobe noncalcified nodules. Recommend attention on follow-up. 3. Indeterminate large left thyroid nodule measuring up to 3 cm. Recommend correlation with endocrine function and sonographic evaluation. Electronically signed by: Praveen Ojeda DO (08/03/2021 4:32 PM) [facility]
[2021-08-03] MEDS: AZITHROMYCIN 250 MG TABLET. PO SCH (17:44)
[2021-08-03 19:22] VITALS: BP 150/74
[2021-08-03] MEDS: HEPARIN for IV BOLUS 10,000 UNIT/10 ML VIAL. IV PRN (20:00)
[2021-08-03] MEDS: TAMSULOSIN 0.4 MG CAP.ER.24H. PO SCH (20:51)
[2021-08-03] MEDS: TRIAMCINOLONE ACETONIDE 0.1% TOPICAL CREAM 15GM TUBE. TP SCH (20:51)
[2021-08-03 22:09] VITALS: BP 140/65
[2021-08-04 02:52] LABS: CALCIUM 8.1 mg/dL (8.5-10.1); CREATININE 4.4 mg/dL (0.7-1.3); GFR 13.7; MAGNESIUM 1.7 mg/dL (1.8-2.4); POTASSIUM 4.8 mmol/L (3.5-5.1)
[2021-08-04 03:15] LABS: BASO % 0 % (0-3); EOS # 2.3 x10^3/uL (0.0-0.7); EOS % 21 % (0-3); HEMATOCRIT 32.4 % (39.0-53.0); HEMOGLOBIN 10.6 g/dL (13.0-17.5); LYMPH # 0.8 x10^3/uL (1.0-4.8); LYMPH % 7 % (24-48); MEAN CORPUSCULAR HEMOGLOBIN 32 pg (25-35); MEAN CORPUSCULAR HGB CONC 33 g/dL (31-37); MEAN CORPUSCULAR VOLUME 97 fL (79-100); MONO # 0.3 x10^3/uL (0.0-1.1); MONO % 3 % (0-9); NEUT # 7.8 x10^3/uL (1.8-7.7); NEUT % 70 % (31-73); PLATELET COUNT 352 x10^3/uL (140-400); RED BLOOD COUNT 3.34 x10^6/uL (4.30-5.70); RED CELL DISTRIBUTION WIDTH 14.7 % (11.5-14.5); WHITE BLOOD COUNT 11.2 x10^3/uL (4.0-11.0)
[2021-08-04 03:19] VITALS: BP 128/73
[2021-08-04] MEDS: HEPARIN for IV BOLUS 10,000 UNIT/10 ML VIAL. IV PRN ×3 (03:21→18:29)
[2021-08-04] MEDS: HEPARIN 25,000UTS/250ML PREMIX 250 ML IV PRN ×2 (05:57→20:49)
[2021-08-04 07:00] VITALS: BP 149/64
--- NOTE | 2021-08-04 07:14 | PDOC ---
PULMONARY PROGRESS NOTES DATE: 08/04/21 TIME: 07:11 Subjective on 02 sob better no cough no cp Vitals Vital Signs Date Time Temp Pulse Resp B/P (MAP) Pulse Ox O2 Delivery O2 Flow Rate FiO2 08/04/21 03:19 97.6 84 18 128/73 (91) 99 Nasal Cannula 4.0 97.6 General: Alert, Oriented X4 HEENT: Other (nc at perrl) Lungs: Crackles Cardiovascular: S1, S2 Abdomen: Soft Neuro Exam: Alert Skin: Warm Labs Laboratory Tests Test 08/03/21 06:30 08/03/21 06:45 08/03/21 13:40 08/03/21 18:45 White Blood Count 11.0 x10^3/uL (4.0-11.0) Red Blood Count 3.40 x10^6/uL (4.30-5.70) Hemoglobin 10.7 g/dL (13.0-17.5) Hematocrit 32.9 % (39.0-53.0) Mean Corpuscular Volume 97 fL (79-100) Mean Corpuscular Hemoglobin 32 pg (25-35) Mean Corpuscular Hemoglobin Concent 33 g/dL (31-37) Red Cell Distribution Width 14.7 % (11.5-14.5) Platelet Count 327 x10^3/uL (140-400) Neutrophils (%) (Auto) 78 % (31-73) Lymphocytes (%) (Auto) 6 % (24-48) Monocytes (%) (Auto) 4 % (0-9) Eosinophils (%) (Auto) 12 % (0-3) Basophils (%) (Auto) 0 % (0-3) Neutrophils # (Auto) 8.6 x10^3/uL (1.8-7.7) Lymphocytes # (Auto) 0.6 x10^3/uL (1.0-4.8) Monocytes # (Auto) 0.5 x10^3/uL (0.0-1.1) Eosinophils # (Auto) 1.3 x10^3/uL (0.0-0.7) Basophils # (Auto) 0.0 x10^3/uL (0.0-0.2) Segmented Neutrophils % 86 % (35-66) Lymphocytes % 4 % (24-48) Monocytes % 4 % (0-10) Eosinophils % 6 % (0-5) Platelet Estimate Adequate (ADEQUATE) Sodium Level 141 mmol/L (136-145) Potassium Level 5.1 mmol/L (3.5-5.1) Chloride Level 106 mmol/L (98-107) Carbon Dioxide Level 26 mmol/L (21-32) Anion Gap 9 (6-14) Blood Urea Nitrogen 55 mg/dL (8-26) Creatinine 3.9 mg/dL (0.7-1.3) Estimated GFR (Cockcroft-Gault) 15.7 Glucose Level 115 mg/dL (70-99) Calcium Level 8.3 mg/dL (8.5-10.1) Magnesium Level 1.9 mg/dL (1.8-2.4) Nasal Screen MRSA (PCR) Negative (NEGATIVE) Erythrocyte Sedimentation Rate 52 (0-15) Rheumatoid Factor 23.4 IU/mL (0.0-13.9) Treponema pallidum Antibody Nonreactive (Nonreactive) Hepatitis A IgM Antibody Nonreactive (Nonreactive) Hepatitis B Surface Antigen Nonreactive (Nonreactive) Hepatitis B Core IgM Antibody Nonreactive (Nonreactive) Hepatitis C IgG Antibody Nonreactive (Nonreactive) HIV (1&2) Antibody Screen Nonreactive (Nonreactive) Heparin Anti-Xa Act, Unfractionated < 0.10 IU/mL (0.30-0.70) Test 08/04/21 02:10 White Blood Count 11.2 x10^3/uL (4.0-11.0) Red Blood Count 3.34 x10^6/uL (4.30-5.70) Hemoglobin 10.6 g/dL (13.0-17.5) Hematocrit 32.4 % (39.0-53.0) Mean Corpuscular Volume 97 fL (79-100) Mean Corpuscular Hemoglobin 32 pg (25-35) Mean Corpuscular Hemoglobin Concent 33 g/dL (31-37) Red Cell Distribution Width 14.7 % (11.5-14.5) Platelet Count 352 x10^3/uL (140-400) Neutrophils (%) (Auto) 70 % (31-73) Lymphocytes (%) (Auto) 7 % (24-48) Monocytes (%) (Auto) 3 % (0-9) Eosinophils (%) (Auto) 21 % (0-3) Basophils (%) (Auto) 0 % (0-3) Neutrophils # (Auto) 7.8 x10^3/uL (1.8-7.7) Lymphocytes # (Auto) 0.8 x10^3/uL (1.0-4.8) Monocytes # (Auto) 0.3 x10^3/uL (0.0-1.1) Eosinophils # (Auto) 2.3 x10^3/uL (0.0-0.7) Basophils # (Auto) 0.0 x10^3/uL (0.0-0.2) Heparin Anti-Xa Act, Unfractionated < 0.10 IU/mL (0.30-0.70) Sodium Level 140 mmol/L (136-145) Potassium Level 4.8 mmol/L (3.5-5.1) Chloride Level 105 mmol/L (98-107) Carbon Dioxide Level 25 mmol/L (21-32) Anion Gap 10 (6-14) Blood Urea Nitrogen 61 mg/dL (8-26) Creatinine 4.4 mg/dL (0.7-1.3) Estimated GFR (Cockcroft-Gault) 13.7 Glucose Level 127 mg/dL (70-99) Calcium Level 8.1 mg/dL (8.5-10.1) Magnesium Level 1.7 mg/dL (1.8-2.4) Laboratory Tests Test 08/03/21 13:40 08/03/21 18:45 08/04/21 02:10 Erythrocyte Sedimentation Rate 52 (0-15) Rheumatoid Factor 23.4 IU/mL (0.0-13.9) Treponema pallidum Antibody Nonreactive (Nonreactive) Hepatitis A IgM Antibody Nonreactive (Nonreactive) Hepatitis B Surface Antigen Nonreactive (Nonreactive) Hepatitis B Core IgM Antibody Nonreactive (Nonreactive) Hepatitis C IgG Antibody Nonreactive (Nonreactive) HIV (1&2) Antibody Screen Nonreactive (Nonreactive) Heparin Anti-Xa Act, Unfractionated < 0.10 IU/mL (0.30-0.70) < 0.10 IU/mL (0.30-0.70) White Blood Count 11.2 x10^3/uL (4.0-11.0) Red Blood Count 3.34 x10^6/uL (4.30-5.70) Hemoglobin 10.6 g/dL (13.0-17.5) Hematocrit 32.4 % (39.0-53.0) Mean Corpuscular Volume 97 fL (79-100) Mean Corpuscular Hemoglobin 32 pg (25-35) Mean Corpuscular Hemoglobin Concent 33 g/dL (31-37) Red Cell Distribution Width 14.7 % (11.5-14.5) Platelet Count 352 x10^3/uL (140-400) Neutrophils (%) (Auto) 70 % (31-73) Lymphocytes (%) (Auto) 7 % (24-48) Monocytes (%) (Auto) 3 % (0-9) Eosinophils (%) (Auto) 21 % (0-3) Basophils (%) (Auto) 0 % (0-3) Neutrophils # (Auto) 7.8 x10^3/uL (1.8-7.7) Lymphocytes # (Auto) 0.8 x10^3/uL (1.0-4.8) Monocytes # (Auto) 0.3 x10^3/uL (0.0-1.1) Eosinophils # (Auto) 2.3 x10^3/uL (0.0-0.7) Basophils # (Auto) 0.0 x10^3/uL (0.0-0.2) Sodium Level 140 mmol/L (136-145) Potassium Level 4.8 mmol/L (3.5-5.1) Chloride Level 105 mmol/L (98-107) Carbon Dioxide Level 25 mmol/L (21-32) Anion Gap 10 (6-14) Blood Urea Nitrogen 61 mg/dL (8-26) Creatinine 4.4 mg/dL (0.7-1.3) Estimated GFR (Cockcroft-Gault) 13.7 Glucose Level 127 mg/dL (70-99) Calcium Level 8.1 mg/dL (8.5-10.1) Magnesium Level 1.7 mg/dL (1.8-2.4) Medications Active Scripts Medications Dose Route/Sig Max Daily Dose Days Date Category No Known Medications Prior To Admisstion (Info) Each 1 Each MC DAILY 08/01/[address] reviewed 1. Scattered subtle tree-in-bud opacities involving bilateral lower lobes and to a lesser extent in the right middle lobe suggestive of infectious or inflammatory bronchiolitis. Recommend short interval follow-up in 3-6 months to assess resolution. 2. Severe centrilobular emphysema with extensive biapical fibrosis/scarring with indeterminate right upper lobe noncalcified nodules. Recommend attention on follow-up. 3. Indeterminate large left thyroid nodule measuring up to 3 cm. Recommend correlation with endocrine function and sonographic evaluation. Impression . IMPRESSION: 1. Acute hypoxemic respiratory failure, multifactorial. 2. Acute pulmonary embolism. 3. Acute exacerbation of chronic obstructive pulmonary disease. 4. Abnormal x-ray revealing nodular opacity right upper lobe. 5. Tobacco dependent. 6. Urinary retention. Plan . PLAN: 1. 02 titration 2. heparin gtt for treatment of pulmonary embolism. 3. CT chest reviewed Scattered subtle tree-in-bud opacities involving bilateral lower lobes severe emphysema fu ct in 3 mo pfts as outpt 4. ct showed thyroid nodule shah per PCP. 5. Workup for hypercoagulable state. 6. abx per id 7. add BD and ICS discussed w pt BENJAMIN VIVEROS MD Aug 04, 2021 07:14
[2021-08-04] MEDS: TRIAMCINOLONE ACETONIDE 0.1% TOPICAL CREAM 15GM TUBE. TP SCH ×2 (08:38→20:46)
[2021-08-04] MEDS: METOPROLOL SUCC 24HR ER 25 MG TAB.ER.24H. PO SCH (08:40)
[2021-08-04] MEDS: LACTOBACILLUS RHAMNOSUS GG 1 CAPSULE. PO SCH ×2 (08:40→20:46)
[2021-08-04] MEDS ORDERED: MAGNESIUM SULFATE 1GM 100 ML IV ONE (10:00)
[2021-08-04 11:00] VITALS: BP 118/58
--- NOTE | 2021-08-04 11:25 | PDOC ---
[facility] [facility] PROGRESS NOTE Date of Service DOS: DATE: 08/04/21 TIME: :22 Chief Complaint Chief Complaint Pulmonary embolism bilateral upper lobes seen on VQ scan Erythroderma psoriasis, mild to moderate Blood cultures positive for diphtheroids species 1 out of 4 bottles Acute hypoxic respiratory failure Concern for CAP, possible gram-negative organisms Acute on chronic kidney injury, no baseline established Hypomagnesemia Tobacco misuse History of urinary retention, concerning for BPH Nodular opacity in the right upper lung, will need CT scanning at some point as outpatient Positive rheumatoid factor Continue with heparin drip Pending YOKO We will start triamcinolone cream for dermatitis Suspicion for vasculitides will obtain HIV, RPR, acute hepatitis panel, RF and YOKO Pulmonology consult recommending to start full dose anticoagulation ID consult for positive blood cultures start empiric IV antibiotics Sputum cultures Pending Legionella urine antigen and MRSA screen Nephrology consult Strict I's and O's We will continue Vázquez and start Flomax for now Avoid nephrotoxic agents Monitor urine output Post void bladder scan to rule out obstructive uropathy Pending renal ultrasound O2 supplementation to maintain O2 saturations 92% Heparin for DVT prophylaxis ADA diet CODE STATUS full Discussed with RN and SW Disposition inpatient management as above DPOA: History of Present Illness History of Present Illness 61-year-old male with no known significant past medical history except for possible kidney damage and coming in with chronic indwelling Vázquez catheter that was placed in February. Patient is a poor historian and he also has a long history of smoking. 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 Patient also has been endorsing a productive cough but he feels relatively fine and does not have any flulike symptoms. Denies fevers, nausea vomiting, abdominal pain, hematuria or bloody bowel movements. When his Vázquez was placed he states that he had low flow did not have any relief from voiding. He does state that his urine was dribbling at the time of H&P. No history of prostate cancer. He also endorses that he has been having flaky skin throughout his whole body ever since he was diagnosed with his kidney issue. 08/04/2021 No acute events overnight. Patient has some nasal congestion and is coughing quite a bit. Does not feel much different compared to yesterday. Skin flaking is improved. Redness throughout the body is also improved. Creatinine still remains elevated at 4.4. Patient does have adequate urine output. Low magnesium 1.7 today will replace with 1 g of IV magnesium. Patient's chart, labs, images were reviewed and discussed with RN Vitals/I&O Vitals/I&O: Vital Signs Date Time Temp Pulse Resp B/P (MAP) Pulse Ox O2 Delivery O2 Flow Rate FiO2 08/04/21 08:40 93 149/64 08/04/21 08:00 Nasal Cannula 4.0 08/04/21 07:00 97.6 18 98 97.6 I & O 08/03/21 08/03/21 08/04/21 15:00 23:00 07:00 Intake Total 560 ml 4210 ml 1655 ml Output Total 1000 ml 850 ml Balance 560 ml 3210 ml 805 ml Physical Exam General: Alert, Oriented X3, Cooperative, No acute distress Heart: Regular rate (SR), Other (distant heart sounds) Abdomen: Soft Extremities: No cyanosis, No edema Skin: Other (generalized skin desqumation) Labs Labs: Laboratory Tests Test 08/03/21 13:40 08/03/21 18:45 08/04/21 02:10 08/04/21 09:30 Erythrocyte Sedimentation Rate 52 (0-15) Rheumatoid Factor 23.4 IU/mL (0.0-13.9) Treponema pallidum Antibody Nonreactive (Nonreactive) Hepatitis A IgM Antibody Nonreactive (Nonreactive) Hepatitis B Surface Antigen Nonreactive (Nonreactive) Hepatitis B Core IgM Antibody Nonreactive (Nonreactive) Hepatitis C IgG Antibody Nonreactive (Nonreactive) HIV (1&2) Antibody Screen Nonreactive (Nonreactive) Heparin Anti-Xa Act, Unfractionated < 0.10 IU/mL (0.30-0.70) < 0.10 IU/mL (0.30-0.70) < 0.10 IU/mL (0.30-0.70) White Blood Count 11.2 x10^3/uL (4.0-11.0) Red Blood Count 3.34 x10^6/uL (4.30-5.70) Hemoglobin 10.6 g/dL (13.0-17.5) Hematocrit 32.4 % (39.0-53.0) Mean Corpuscular Volume 97 fL (79-100) Mean Corpuscular Hemoglobin 32 pg (25-35) Mean Corpuscular Hemoglobin Concent 33 g/dL (31-37) Red Cell Distribution Width 14.7 % (11.5-14.5) Platelet Count 352 x10^3/uL (140-400) Neutrophils (%) (Auto) 70 % (31-73) Lymphocytes (%) (Auto) 7 % (24-48) Monocytes (%) (Auto) 3 % (0-9) Eosinophils (%) (Auto) 21 % (0-3) Basophils (%) (Auto) 0 % (0-3) Neutrophils # (Auto) 7.8 x10^3/uL (1.8-7.7) Lymphocytes # (Auto) 0.8 x10^3/uL (1.0-4.8) Monocytes # (Auto) 0.3 x10^3/uL (0.0-1.1) Eosinophils # (Auto) 2.3 x10^3/uL (0.0-0.7) Basophils # (Auto) 0.0 x10^3/uL (0.0-0.2) Sodium Level 140 mmol/L (136-145) Potassium Level 4.8 mmol/L (3.5-5.1) Chloride Level 105 mmol/L (98-107) Carbon Dioxide Level 25 mmol/L (21-32) Anion Gap 10 (6-14) Blood Urea Nitrogen 61 mg/dL (8-26) Creatinine 4.4 mg/dL (0.7-1.3) Estimated GFR (Cockcroft-Gault) 13.7 Glucose Level 127 mg/dL (70-99) Calcium Level 8.1 mg/dL (8.5-10.1) Magnesium Level 1.7 mg/dL (1.8-2.4) Assessment and Plan Assessmemt and Plan Problems Medical Problems: (1) Emphysema lung Status: Acute (2) Nodule of right lung Status: Acute (3) Smoking addiction Status: Acute Comment Review of Relevant I have reviewed the following items jose (where applicable) has been applied. Medications: Current Medications Medications (Trade) Dose Ordered Sig/Lorenza Route PRN Reason Start Time Stop Time Status Last Admin Dose Admin Heparin Sodium (Porcine) (Heparin Sodium) 6,200 unit 1X ONCE IV 08/03/21 12:00 08/03/21 12:01 DC 08/03/21 12:32 Heparin Sodium (Porcine) (Heparin Sodium) 3,100 unit PRN Q6HRS PRN IV FOR UFH LEVEL 0.2 - 0.29 08/03/21 12:00 08/04/21 10:55 Heparin Sodium/ Dextrose 250 ml @ 12.352 mls/ hr CONT PRN IV PER PROTOCOL 08/03/21 12:00 08/04/21 05:57 Triamcinolone Acetonide (Kenalog 0.1%) 1 rosalinda BID TP 08/03/21 21:00 08/04/21 08:38 Azithromycin (Zithromax) 250 mg Q24H PO 08/03/21 16:00 08/06/21 16:01 08/03/21 17:44 Info (Anti-Coagulation Monitoring By Pharmacy) 1 each PRN DAILY PRN MC PER PROTOCOL 08/03/21 14:30 08/03/21 14:25 Magnesium Sulfate/ Dextrose 100 ml @ 100 mls/hr 1X ONCE IV 08/04/21 10:00 08/04/21 10:59 DC 08/04/21 09:55 Justifications for Admission Other Justification Acute renal failure RENNY BUSH MD Aug 04, 2021 11:25
[2021-08-04] MEDS ORDERED: SODIUM CHLORIDE 0.65% NASAL SPRAY 45ML BOTTLE. NS PRN (11:30)
[2021-08-04] MEDS: FLUTICASONE 50MCG/NASAL SPRAY 16GM BOTTLE. NS SCH (11:35)
[2021-08-04] MEDS: cefTRIAXone IV Push 1 GM VIAL. IVP SCH (12:00)
--- NOTE | 2021-08-04 12:29 | PDOC ---
PROGRESS NOTES Date of Service: DATE: 08/04/21 TIME: 12:29 Subjective Subjective c/o Objective Objective Vital Signs Date Time Temp Pulse Resp B/P (MAP) Pulse Ox O2 Delivery O2 Flow Rate FiO2 08/04/21 11:00 97.5 85 18 118/58 (78) 99 Nasal Cannula 4.0 97.5 Intake and Output 08/04/21 06:59 Intake Total 6425 ml Output Total 1850 ml Balance 4575 ml Intake Oral 6250 ml IV Total 175 ml Output Urine Total 1850 ml Physical Exam Abdomen: Soft Heart: Regular rate (SR), Other (distant heart sounds) Extremities: No cyanosis, No edema General: Alert, Oriented X3, Cooperative, No acute distress HEENT: Atraumatic, Mucous membr. moist/pink Lungs: Other (diffuse wheeze) MUSCULOSKELETAL: Osteoarthritic changes both hands Neuro: Normal speech, Sensation intact Psych/Mental Status: Mental status NL, Mood NL Skin: Other (generalized skin desqumation) Assessment Assessment 1. Acute pulmonary embolism 2. BRANDY on CKD: unclear baseline nephrology following 3. Acute COPD exacerbation 4. Hypomagnesemia: replaced 5. Chronic diastolic CHF: Compensated 6. Chronic UTI with rolle with associated urinary retention 7. Mild CM: EF at 45-50%% Recommendations Anticoagulation per pulmonary team ASA, low dose metoprolol Follow up with Cardiology when he gets back to [place] Smoking cessation Plan Plan of Care Problems Medical Problems: (1) Emphysema lung Status: Acute (2) Nodule of right lung Status: Acute (3) Smoking addiction Status: Acute Comment Review of Relevant I have reviewed the following items jose (where applicable) has been applied. Labs Laboratory Tests Test 08/03/21 13:40 08/03/21 18:45 08/04/21 02:10 08/04/21 09:30 Erythrocyte Sedimentation Rate 52 (0-15) Rheumatoid Factor 23.4 IU/mL (0.0-13.9) Treponema pallidum Antibody Nonreactive (Nonreactive) Hepatitis A IgM Antibody Nonreactive (Nonreactive) Hepatitis B Surface Antigen Nonreactive (Nonreactive) Hepatitis B Core IgM Antibody Nonreactive (Nonreactive) Hepatitis C IgG Antibody Nonreactive (Nonreactive) HIV (1&2) Antibody Screen Nonreactive (Nonreactive) Heparin Anti-Xa Act, Unfractionated < 0.10 IU/mL (0.30-0.70) < 0.10 IU/mL (0.30-0.70) < 0.10 IU/mL (0.30-0.70) White Blood Count 11.2 x10^3/uL (4.0-11.0) Red Blood Count 3.34 x10^6/uL (4.30-5.70) Hemoglobin 10.6 g/dL (13.0-17.5) Hematocrit 32.4 % (39.0-53.0) Mean Corpuscular Volume 97 fL (79-100) Mean Corpuscular Hemoglobin 32 pg (25-35) Mean Corpuscular Hemoglobin Concent 33 g/dL (31-37) Red Cell Distribution Width 14.7 % (11.5-14.5) Platelet Count 352 x10^3/uL (140-400) Neutrophils (%) (Auto) 70 % (31-73) Lymphocytes (%) (Auto) 7 % (24-48) Monocytes (%) (Auto) 3 % (0-9) Eosinophils (%) (Auto) 21 % (0-3) Basophils (%) (Auto) 0 % (0-3) Neutrophils # (Auto) 7.8 x10^3/uL (1.8-7.7) Lymphocytes # (Auto) 0.8 x10^3/uL (1.0-4.8) Monocytes # (Auto) 0.3 x10^3/uL (0.0-1.1) Eosinophils # (Auto) 2.3 x10^3/uL (0.0-0.7) Basophils # (Auto) 0.0 x10^3/uL (0.0-0.2) Sodium Level 140 mmol/L (136-145) Potassium Level 4.8 mmol/L (3.5-5.1) Chloride Level 105 mmol/L (98-107) Carbon Dioxide Level 25 mmol/L (21-32) Anion Gap 10 (6-14) Blood Urea Nitrogen 61 mg/dL (8-26) Creatinine 4.4 mg/dL (0.7-1.3) Estimated GFR (Cockcroft-Gault) 13.7 Glucose Level 127 mg/dL (70-99) Calcium Level 8.1 mg/dL (8.5-10.1) Magnesium Level 1.7 mg/dL (1.8-2.4) Uric Acid 10.0 mg/dL (3.5-7.2) Microbiology 08/01/21 Urine Culture - Final, Complete 08/01/21 Blood Culture - Preliminary, Resulted NO GROWTH AFTER 2 DAYS Medications Current Medications Albuterol/ Ipratropium (Duoneb) 3 ml RTQID NEB ; Start 08/04/21 at 13:00 Azithromycin (Zithromax) 250 mg Q24H PO Last administered on 08/03/21at 17:44; Start 08/03/21 at 16:00; Stop 08/06/21 at 16:01 Budesonide (Pulmicort) 0.5 mg RTBID NEB ; Start 08/04/21 at 13:00 Fluticasone Propionate (Flonase) 2 spray DAILY NS Last administered on 08/04/21at 11:35; Start 08/04/21 at 12:30 Info (Anti-Coagulation Monitoring By Pharmacy) 1 each PRN DAILY PRN MC PER PROTOCOL Last administered on 08/03/21at 14:25; Start 08/03/21 at 14:30 Magnesium Sulfate/ Dextrose 100 ml @ 100 mls/hr 1X ONCE IV Last administered on 08/04/21at 09:55; Start 08/04/21 at 10:00; Stop 08/04/21 at 10:59; Status DC Sodium Chloride (Saline Mist Nasal) 1 rosalinda PRN Q1HR PRN NS NASAL CONGESTION; Start 08/04/21 at 11:30 Triamcinolone Acetonide (Kenalog 0.1%) 1 rosalinda BID TP Last administered on 10/04/20at 08:38; Start 08/03/21 at 21:00 Vitals/I & O Vital Sign - Last 24 Hours 08/03/21 08/03/21 08/03/21 08/03/21 15:14 19:22 20:00 22:09 Temp 97.7 97.9 98.1 97.7 97.9 98.1 Pulse 90 100 102 Resp 20 22 20 B/P (MAP) 177/69 (105) 150/74 (99) 140/65 (90) Pulse Ox 97 91 93 O2 Delivery Nasal Cannula Room Air Room Air Nasal Cannula O2 Flow Rate 4.0 4.0 08/04/21 08/04/21 08/04/2121 03:19 07:00 08:00 08:40 Temp 97.6 97.6 97.6 97.6 Pulse 84 93 93 Resp 18 18 B/P (MAP) 128/73 (91) 149/64 (92) 149/64 Pulse Ox 99 98 O2 Delivery Nasal Cannula Nasal Cannula Nasal Cannula O2 Flow Rate 4.0 4.0 4.0 08/04/21 11:00 Temp 97.5 97.5 Pulse 85 Resp 18 B/P (MAP) 118/58 (78) Pulse Ox 99 O2 Delivery Nasal Cannula O2 Flow Rate 4.0 Intake and Output 08/03/21 08/03/21 08/04/21 14:59 22:59 06:59 Intake Total 560 ml 4210 ml 1655 ml Output Total 1000 ml 850 ml Balance 560 ml 3210 ml 805 ml MANUEL GRANGER MD Aug 04, 2021 12:29
--- NOTE | 2021-08-04 12:56 | PDOC2 ---
Consult: PE for 08/03 General: Well developed, well nourished, no acute distress, well appearing on Nasal O2 by NC HEENT: Pupils equally round and reactive to light, EOMI, normal conjunctiva,no oral ulcers Neck: Supple, no nuchal rigidity, no JVD, no tenderness Cardiac: RRR, no murmurs, Chest/Lungs: CTAB, no wheezing Abdomen: soft, non-distended, no guarding, non-tender BS + Back: No tenderness Extremities: Flaky skin throughout his extremities. Hyperpigmentation and some warmth. No blanching erythema.NO ulcerations Neuro: Alert and oriented x 4, no focal deficits, normal speech Vázquez in place changed this hosp CALDERONMANDO ROA MD Aug 04, 2021 12:56
--- NOTE | 2021-08-04 12:58 | PDOC ---
Infectious Disease Note Subjective: Subjective Pt resting quietly no fevers on O2 by NC Vital Signs: Vital Signs Vital Signs Date Time Temp Pulse Resp B/P (MAP) Pulse Ox O2 Delivery O2 Flow Rate FiO2 08/04/21 11:00 97.5 85 18 118/58 (78) 99 Nasal Cannula 4.0 97.5 Physical Exam: PHYSICAL EXAM General: Well developed, well nourished, no acute distress, well appearing on Nasal O2 by NC HEENT: Pupils equally round and reactive to light, EOMI, normal conjunctiva,no oral ulcers Neck: Supple, no nuchal rigidity, no JVD, no tenderness Cardiac: RRR, no murmurs, Chest/Lungs: CTAB, no wheezing Abdomen: soft, non-distended, no guarding, non-tender BS + Back: No tenderness Extremities: Flaky skin throughout his extremities. Improved, . No blanching erythema.NO ulcerations Neuro: Alert and oriented x 4, no focal deficits, normal speech Vázquez in place changed this hosp Medications: Inpatient Meds: Medications reviewed. Labs: Lab Laboratory Tests Test 08/03/21 13:40 08/03/21 18:45 08/04/21 02:10 08/04/21 09:30 Erythrocyte Sedimentation Rate 52 (0-15) Rheumatoid Factor 23.4 IU/mL (0.0-13.9) Treponema pallidum Antibody Nonreactive (Nonreactive) Hepatitis A IgM Antibody Nonreactive (Nonreactive) Hepatitis B Surface Antigen Nonreactive (Nonreactive) Hepatitis B Core IgM Antibody Nonreactive (Nonreactive) Hepatitis C IgG Antibody Nonreactive (Nonreactive) HIV (1&2) Antibody Screen Nonreactive (Nonreactive) Heparin Anti-Xa Act, Unfractionated < 0.10 IU/mL (0.30-0.70) < 0.10 IU/mL (0.30-0.70) < 0.10 IU/mL (0.30-0.70) White Blood Count 11.2 x10^3/uL (4.0-11.0) Red Blood Count 3.34 x10^6/uL (4.30-5.70) Hemoglobin 10.6 g/dL (13.0-17.5) Hematocrit 32.4 % (39.0-53.0) Mean Corpuscular Volume 97 fL (79-100) Mean Corpuscular Hemoglobin 32 pg (25-35) Mean Corpuscular Hemoglobin Concent 33 g/dL (31-37) Red Cell Distribution Width 14.7 % (11.5-14.5) Platelet Count 352 x10^3/uL (140-400) Neutrophils (%) (Auto) 70 % (31-73) Lymphocytes (%) (Auto) 7 % (24-48) Monocytes (%) (Auto) 3 % (0-9) Eosinophils (%) (Auto) 21 % (0-3) Basophils (%) (Auto) 0 % (0-3) Neutrophils # (Auto) 7.8 x10^3/uL (1.8-7.7) Lymphocytes # (Auto) 0.8 x10^3/uL (1.0-4.8) Monocytes # (Auto) 0.3 x10^3/uL (0.0-1.1) Eosinophils # (Auto) 2.3 x10^3/uL (0.0-0.7) Basophils # (Auto) 0.0 x10^3/uL (0.0-0.2) Sodium Level 140 mmol/L (136-145) Potassium Level 4.8 mmol/L (3.5-5.1) Chloride Level 105 mmol/L (98-107) Carbon Dioxide Level 25 mmol/L (21-32) Anion Gap 10 (6-14) Blood Urea Nitrogen 61 mg/dL (8-26) Creatinine 4.4 mg/dL (0.7-1.3) Estimated GFR (Cockcroft-Gault) 13.7 Glucose Level 127 mg/dL (70-99) Calcium Level 8.1 mg/dL (8.5-10.1) Magnesium Level 1.7 mg/dL (1.8-2.4) Uric Acid 10.0 mg/dL (3.5-7.2) Objective: Assessment: 1. Bacteremia, 1/4 bottles present on admission, GPR corynebacterium Likely contaminant. 2. Leukocytosis. 3. Acute hypoxic respiratory failure likely PE. 4. Acute kidney injury on chronic kidney disease. 5. Urinary retention -- chronic Vázquez changed during this admission. 6. Dermatitis. 7. Urinary tract infection. Urine culture colonization. Plan: Plan of Care 1. Continue ceftriaxone and doxycycline for now. 2. Monitor labs and cultures. 3. Follow up for urine legionella antigen. 4 Diagnosis is unclear for his dermatitis at this time. MANDO CALDERON MD Aug 04, 2021 12:58
[2021-08-04] MEDS: BUDESONIDE 0.5 MG/2 ML NEBU. NEB SCH ×2 (14:36→21:12)
[2021-08-04] MEDS: IPRATRPIUM/ALBUTEROL 0.5/2.5MG 3 ML NEBU. NEB SCH ×3 (14:36→21:11)
--- NOTE | 2021-08-04 14:37 | PDOC ---
DATE OF SERVICE DATE: 08/04/21 TIME: 14:36 SUBJECTIVE ROS Stable, no concerns voiced by nursing OBJECTIVE Vital Signs Vital Signs Date Time Temp Pulse Resp B/P (MAP) Pulse Ox O2 Delivery O2 Flow Rate FiO2 08/04/21 11:00 97.5 85 18 118/58 (78) 99 Nasal Cannula 4.0 97.5 I & 0 Intake and Output 08/04/21 07:00 Intake Total 6425 ml Output Total 1850 ml Balance 4575 ml Intake Oral 6250 ml IV Total 175 ml Output Urine Total 1850 ml PHYSICAL EXAM Physical Exam General NAD, Propped in bed, HEEN OM moist, On o2 by NC \ Neck Supple Lungs CTA , Non labored CVS1 S2 Abd Soft, NT Indwelling Rolle Neuro Grossly Normal, No focal deficit Psych Cooperative Derm No Rash DIAGNOSIS/ASSESSMENT Assessment & Plan BRANDY on CKD ; .Rolle replaced in the ER Non Oliguric (3.6----->4.4) . Renal US @ [facility] unremarkable . 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 Cr 8.1 at the time of discharge . Plan for TURP as outpatient Apr 2021 Cr 4.5 seen in the ER , dced with recommendations to follow with Urology ; Jul 10 Cr 4.8 CKD stage 4 - per Hx Obtained from patient Dx in February 2021 during Hospitalization for unable to Void , requiring Rolle placement. Denies Past Hx . No HTN/DM Hospitalized again in [place] approx 1 month back with decline in Kidney function from 18 to 9%, Pt unable to give any details Etiology Suspect ? WRIGHT / Urinary retention (indwelling rolle), details unavailable Use of NSAID's SVT/Atrialm flutter- in March 2021 Renal cyst- Minimally complex 4.0 cm right renal cyst. Recommend Urology Follow up Hypomagnesemia- normal UTI- Cx CW Colonization . Defer to primary Ac resp Failure-stable CxR Nodular opacity right upper lung can be further assessed by nonemergent CT. Recd 1 dose of COVID vaccine, due for 2nd . Possible chronic diastolic CHF: compensated. COMMENT/RELEVANT DATA Meds Current Medications Medications (Trade) Dose Ordered Sig/Lorenza Start Time Stop Time Status Last Admin Dose Admin Acetaminophen (Tylenol) 650 mg PRN Q4HRS PRN 08/01/21 20:45 08/02/21 20:44 DC Albuterol/ Ipratropium (Duoneb) 3 ml RTQID 08/04/21 13:00 Azithromycin (Zithromax) 250 mg Q24H 08/03/21 16:00 08/06/21 16:01 08/03/21 17:44 250 MG Azithromycin 500 mg/Sodium Chloride 250 ml @ 250 mls/hr Q24H 08/02/21 13:00 08/03/21 12:54 DC 08/02/21 16:16 250 MLS/HR Budesonide (Pulmicort) 0.5 mg RTBID 08/04/21 13:00 Calamine (Calamine Lotion) 1 rosalinda PRN Q4HRS PRN 08/02/21 13:00 08/04/21 08:38 1 ROSALINDA Ceftriaxone Sodium (Rocephin) 1 gm Q24H 08/02/21 13:00 08/04/21 12:00 1 GM Dextrose (Dextrose 50%-Water Syringe) 12.5 gm PRN Q15MIN PRN 08/01/21 19:30 Docusate Sodium (Colace) 100 mg PRN DAILY PRN 08/01/21 19:30 Fluticasone Propionate (Flonase) 2 spray DAILY 08/04/21 12:30 08/04/21 11:35 2 SPRAY Furosemide (Lasix) 40 mg 1X ONCE 08/01/21 19:00 08/01/21 19:01 DC 08/01/21 19:09 40 MG Heparin Sodium (Porcine) (Heparin Sodium) 3,100 unit PRN Q6HRS PRN 08/03/21 12:00 08/04/21 10:55 3,100 UNIT Heparin Sodium/ Dextrose 250 ml @ 12.352 mls/ hr CONT PRN 08/03/21 12:00 08/04/21 05:57 16.984 MLS/HR Info (Anti-Coagulation Monitoring By Pharmacy) 1 each PRN DAILY PRN 08/03/21 14:30 08/03/21 14:25 1 EACH Lactobacillus Rhamnosus (Culturelle) 1 cap BID 08/02/21 21:00 08/04/21 08:40 1 CAP Lorazepam (Ativan Inj) 0.25 mg PRN Q4HRS PRN 08/01/21 19:30 Lorazepam (Ativan) 0.5 mg PRN Q6HRS PRN 08/01/21 19:30 Magnesium Sulfate 50 ml @ 25 mls/hr 1X ONCE 08/02/21 09:30 08/02/21 11:29 DC 08/02/21 13:09 25 MLS/HR Magnesium Sulfate/ Dextrose 100 ml @ 100 mls/hr 1X ONCE 08/04/21 10:00 08/04/21 10:59 DC 08/04/21 09:55 100 MLS/HR Metoprolol Succinate (Toprol Xl) 25 mg DAILY 08/02/21 13:00 08/04/21 08:40 25 MG Morphine Sulfate (Morphine Sulfate) 2 mg PRN Q2HR PRN 08/01/21 20:45 08/02/21 20:44 DC Ondansetron HCl (Zofran) 4 mg PRN Q8HRS PRN 08/01/21 20:45 08/02/21 20:44 DC Prochlorperazine Edisylate (Compazine) 10 mg PRN Q6HRS PRN 08/01/21 19:30 Sennosides (Senna) 17.2 mg PRN BID PRN 08/01/21 19:30 Sodium Chloride (Saline Mist Nasal) 1 rosalinda PRN Q1HR PRN 08/04/21 11:30 Tamsulosin HCl (Flomax) 0.4 mg QHS 08/02/21 21:00 08/03/21 20:51 0.4 MG Triamcinolone Acetonide (Kenalog 0.1%) 1 rosalinda BID 08/03/21 21:00 08/04/21 08:38 1 ROSALINDA Zolpidem Tartrate (Ambien) 2.5 mg PRN QHS PRN 08/01/21 19:30 Lab Laboratory Tests Test 08/03/21 18:45 08/04/21 02:10 08/04/21 09:30 Heparin Anti-Xa Act, Unfractionated < 0.10 IU/mL (0.30-0.70) < 0.10 IU/mL (0.30-0.70) < 0.10 IU/mL (0.30-0.70) White Blood Count 11.2 x10^3/uL (4.0-11.0) Red Blood Count 3.34 x10^6/uL (4.30-5.70) Hemoglobin 10.6 g/dL (13.0-17.5) Hematocrit 32.4 % (39.0-53.0) Mean Corpuscular Volume 97 fL (79-100) Mean Corpuscular Hemoglobin 32 pg (25-35) Mean Corpuscular Hemoglobin Concent 33 g/dL (31-37) Red Cell Distribution Width 14.7 % (11.5-14.5) Platelet Count 352 x10^3/uL (140-400) Neutrophils (%) (Auto) 70 % (31-73) Lymphocytes (%) (Auto) 7 % (24-48) Monocytes (%) (Auto) 3 % (0-9) Eosinophils (%) (Auto) 21 % (0-3) Basophils (%) (Auto) 0 % (0-3) Neutrophils # (Auto) 7.8 x10^3/uL (1.8-7.7) Lymphocytes # (Auto) 0.8 x10^3/uL (1.0-4.8) Monocytes # (Auto) 0.3 x10^3/uL (0.0-1.1) Eosinophils # (Auto) 2.3 x10^3/uL (0.0-0.7) Basophils # (Auto) 0.0 x10^3/uL (0.0-0.2) Sodium Level 140 mmol/L (136-145) Potassium Level 4.8 mmol/L (3.5-5.1) Chloride Level 105 mmol/L (98-107) Carbon Dioxide Level 25 mmol/L (21-32) Anion Gap 10 (6-14) Blood Urea Nitrogen 61 mg/dL (8-26) Creatinine 4.4 mg/dL (0.7-1.3) Estimated GFR (Cockcroft-Gault) 13.7 Glucose Level 127 mg/dL (70-99) Calcium Level 8.1 mg/dL (8.5-10.1) Magnesium Level 1.7 mg/dL (1.8-2.4) Uric Acid 10.0 mg/dL (3.5-7.2) Results All relevant outside records, renal labs, imaging studies, telemetry/EKG's were reviewed. Justicifation of Admission Dx: Justifications for Admission: Justification of Admission Dx: N/A BINDU SOLER MD Aug 04, 2021 14:37
[2021-08-04 15:00] VITALS: BP 132/68
[2021-08-04] MEDS: AZITHROMYCIN 250 MG TABLET. PO SCH (15:16)
[2021-08-04 19:00] VITALS: BP 122/53
[2021-08-04] MEDS: TAMSULOSIN 0.4 MG CAP.ER.24H. PO SCH (20:46)
[2021-08-04 22:36] VITALS: BP 139/71
[2021-08-05 02:48] VITALS: BP 134/63
[2021-08-05 07:00] VITALS: BP 159/70
--- NOTE | 2021-08-05 07:34 | PDOC ---
PULMONARY PROGRESS NOTES DATE: 08/05/21 TIME: 07:33 Subjective on 02 feels better sob better has cough no cp Vitals Vital Signs Date Time Temp Pulse Resp B/P (MAP) Pulse Ox O2 Delivery O2 Flow Rate FiO2 08/05/21 02:48 98.0 65 16 134/63 (86) 100 Nasal Cannula 4.0 98.0 General: Alert, Oriented X4 HEENT: Other (nc at perrl) Lungs: Crackles Cardiovascular: S1, S2 Abdomen: Soft Neuro Exam: Alert Skin: Warm Labs Laboratory Tests Test 08/03/21 13:40 08/03/21 18:45 08/04/21 02:10 08/04/21 09:30 Erythrocyte Sedimentation Rate 52 (0-15) Rheumatoid Factor 23.4 IU/mL (0.0-13.9) Treponema pallidum Antibody Nonreactive (Nonreactive) Hepatitis A IgM Antibody Nonreactive (Nonreactive) Hepatitis B Surface Antigen Nonreactive (Nonreactive) Hepatitis B Core IgM Antibody Nonreactive (Nonreactive) Hepatitis C IgG Antibody Nonreactive (Nonreactive) HIV (1&2) Antibody Screen Nonreactive (Nonreactive) Heparin Anti-Xa Act, Unfractionated < 0.10 IU/mL (0.30-0.70) < 0.10 IU/mL (0.30-0.70) < 0.10 IU/mL (0.30-0.70) White Blood Count 11.2 x10^3/uL (4.0-11.0) Red Blood Count 3.34 x10^6/uL (4.30-5.70) Hemoglobin 10.6 g/dL (13.0-17.5) Hematocrit 32.4 % (39.0-53.0) Mean Corpuscular Volume 97 fL (79-100) Mean Corpuscular Hemoglobin 32 pg (25-35) Mean Corpuscular Hemoglobin Concent 33 g/dL (31-37) Red Cell Distribution Width 14.7 % (11.5-14.5) Platelet Count 352 x10^3/uL (140-400) Neutrophils (%) (Auto) 70 % (31-73) Lymphocytes (%) (Auto) 7 % (24-48) Monocytes (%) (Auto) 3 % (0-9) Eosinophils (%) (Auto) 21 % (0-3) Basophils (%) (Auto) 0 % (0-3) Neutrophils # (Auto) 7.8 x10^3/uL (1.8-7.7) Lymphocytes # (Auto) 0.8 x10^3/uL (1.0-4.8) Monocytes # (Auto) 0.3 x10^3/uL (0.0-1.1) Eosinophils # (Auto) 2.3 x10^3/uL (0.0-0.7) Basophils # (Auto) 0.0 x10^3/uL (0.0-0.2) Sodium Level 140 mmol/L (136-145) Potassium Level 4.8 mmol/L (3.5-5.1) Chloride Level 105 mmol/L (98-107) Carbon Dioxide Level 25 mmol/L (21-32) Anion Gap 10 (6-14) Blood Urea Nitrogen 61 mg/dL (8-26) Creatinine 4.4 mg/dL (0.7-1.3) Estimated GFR (Cockcroft-Gault) 13.7 Glucose Level 127 mg/dL (70-99) Calcium Level 8.1 mg/dL (8.5-10.1) Magnesium Level 1.7 mg/dL (1.8-2.4) Uric Acid 10.0 mg/dL (3.5-7.2) Test 08/04/21 17:10 08/05/21 00:40 Heparin Anti-Xa Act, Unfractionated 0.24 IU/mL (0.30-0.70) 0.42 IU/mL (0.30-0.70) Laboratory Tests Test 08/04/21 09:30 08/04/21 17:10 08/05/21 00:40 Heparin Anti-Xa Act, Unfractionated < 0.10 IU/mL (0.30-0.70) 0.24 IU/mL (0.30-0.70) 0.42 IU/mL (0.30-0.70) Uric Acid 10.0 mg/dL (3.5-7.2) Medications Active Scripts Medications Dose Route/Sig Max Daily Dose Days Date Category No Known Medications Prior To Admisstion (Info) Each 1 Each DAILY 08/01/[address] reviewed 1. Scattered subtle tree-in-bud opacities involving bilateral lower lobes and to a lesser extent in the right middle lobe suggestive of infectious or inflammatory bronchiolitis. Recommend short interval follow-up in 3-6 months to assess resolution. 2. Severe centrilobular emphysema with extensive biapical fibrosis/scarring with indeterminate right upper lobe noncalcified nodules. Recommend attention on follow-up. 3. Indeterminate large left thyroid nodule measuring up to 3 cm. Recommend correlation with endocrine function and sonographic evaluation. Impression . IMPRESSION: 1. Acute hypoxemic respiratory failure, multifactorial. 2. Acute pulmonary embolism. 3. Acute exacerbation of chronic obstructive pulmonary disease. 4. Abnormal x-ray revealing nodular opacity right upper lobe. 5. Tobacco dependent. 6. Urinary retention. Plan . 08/05 1. 02 titration 2. heparin gtt for treatment of pulmonary embolism. ? change DOAC 3. CT chest reviewed Scattered subtle tree-in-bud opacities involving bilateral lower lobes severe emphysema fu ct in 3 mo pfts as outpt 4. ct showed thyroid nodule shah per PCP. 5. Workup for hypercoagulable state. 6. abx per id 7. cont BD and ICS discussed w pt PLAN: 1. 02 titration 2. heparin gtt for treatment of pulmonary embolism. 3. CT chest reviewed Scattered subtle tree-in-bud opacities involving bilateral lower lobes severe emphysema fu ct in 3 mo pfts as outpt 4. ct showed thyroid nodule shah per PCP. 5. Workup for hypercoagulable state. 6. abx per id 7. add BD and ICS discussed w pt BENJAMIN VIVEROS MD Aug 05, 2021 07:34
[2021-08-05] MEDS: IPRATRPIUM/ALBUTEROL 0.5/2.5MG 3 ML NEBU. NEB SCH ×4 (07:53→21:16)
[2021-08-05] MEDS: BUDESONIDE 0.5 MG/2 ML NEBU. NEB SCH ×2 (07:53→21:17)
[2021-08-05] MEDS: LACTOBACILLUS RHAMNOSUS GG 1 CAPSULE. PO SCH ×2 (08:27→20:52)
[2021-08-05] MEDS: FLUTICASONE 50MCG/NASAL SPRAY 16GM BOTTLE. NS SCH (08:28)
[2021-08-05] MEDS: METOPROLOL SUCC 24HR ER 25 MG TAB.ER.24H. PO SCH (08:28)
[2021-08-05] MEDS: TRIAMCINOLONE ACETONIDE 0.1% TOPICAL CREAM 15GM TUBE. TP SCH ×2 (08:29→21:00)
[2021-08-05] MEDS: HEPARIN 25,000UTS/250ML PREMIX 250 ML IV PRN ×2 (08:33→20:52)
[2021-08-05 08:57] LABS: CALCIUM 8.2 mg/dL (8.5-10.1); GFR 15.3; POTASSIUM 4.4 mmol/L (3.5-5.1)
--- NOTE | 2021-08-05 09:35 | PDOC ---
PROGRESS NOTES Date of Service: DATE: 08/05/21 TIME: 09:35 Subjective Subjective Dyspnea improved Objective Objective Vital Signs Date Time Temp Pulse Resp B/P (MAP) Pulse Ox O2 Delivery O2 Flow Rate FiO2 08/05/21 08:28 65 134/63 08/05/21 07:50 92 Room Air 08/05/21 07:00 97.5 18 4.0 97.5 Intake and Output 08/05/21 07:00 Intake Total 720 ml Output Total 2350 ml Balance -1630 ml Intake Oral 620 ml IV Total 100 ml Output Urine Total 2350 ml Physical Exam Abdomen: Soft Heart: Regular rate (SR), Other (distant heart sounds) Extremities: No cyanosis, No edema General: Alert, Oriented X3, Cooperative, No acute distress HEENT: Atraumatic, Mucous membr. moist/pink Lungs: Other (diffuse wheeze) MUSCULOSKELETAL: Osteoarthritic changes both hands Neuro: Normal speech, Sensation intact Psych/Mental Status: Mental status NL, Mood NL Skin: Other (generalized skin desqumation) Assessment Assessment 1. Acute pulmonary embolism 2. BRANDY on CKD: unclear baseline nephrology following 3. Acute COPD exacerbation 4. Hypomagnesemia: replaced 5. Chronic diastolic CHF: Compensated 6. Chronic UTI with rolle with associated urinary retention 7. Mild CM: EF at 45-50%% Recommendations Anticoagulation per pulmonary team ASA, low dose metoprolol Follow up with Cardiology when he gets back to [place] Smoking cessation Plan Plan of Care Problems Medical Problems: (1) Emphysema lung Status: Acute (2) Nodule of right lung Status: Acute (3) Smoking addiction Status: Acute Comment Review of Relevant I have reviewed the following items jose (where applicable) has been applied. Labs Laboratory Tests Test 08/04/21 17:10 08/05/21 00:40 08/05/21 08:15 Heparin Anti-Xa Act, Unfractionated 0.24 IU/mL (0.30-0.70) 0.42 IU/mL (0.30-0.70) 0.48 IU/mL (0.30-0.70) Sodium Level 140 mmol/L (136-145) Potassium Level 4.4 mmol/L (3.5-5.1) Chloride Level 105 mmol/L (98-107) Carbon Dioxide Level 24 mmol/L (21-32) Anion Gap 11 (6-14) Blood Urea Nitrogen 65 mg/dL (8-26) Creatinine 4.0 mg/dL (0.7-1.3) Estimated GFR (Cockcroft-Gault) 15.3 Glucose Level 113 mg/dL (70-99) Calcium Level 8.2 mg/dL (8.5-10.1) Microbiology 08/01/21 Urine Culture - Final, Complete 08/01/21 Blood Culture - Preliminary, Resulted NO GROWTH AFTER 3 DAYS Medications Current Medications Albuterol/ Ipratropium (Duoneb) 3 ml RTQID NEB Last administered on 08/05/21at 07:53; Start 08/04/21 at 13:00 Budesonide (Pulmicort) 0.5 mg RTBID NEB Last administered on 08/05/21at 07:53; Start 08/04/21 at 13:00 Fluticasone Propionate (Flonase) 2 spray DAILY NS Last administered on 08/05/21at 08:28; Start 08/04/21 at 12:30 Magnesium Sulfate/ Dextrose 100 ml @ 100 mls/hr 1X ONCE IV Last administered on 08/04/21at 09:55; Start 08/04/21 at 10:00; Stop 08/04/21 at 10:59; Status DC Sodium Chloride (Saline Mist Nasal) 1 rosalinda PRN Q1HR PRN NS NASAL CONGESTION; Start 08/04/21 at 11:30 Vitals/I & O Vital Sign - Last 24 Hours 08/04/21 08/04/21 08/04/21 08/04/21 11:00 15:00 16:07 19:00 Temp 97.5 97.8 97.9 97.5 97.8 97.9 Pulse 85 71 95 Resp 18 18 20 B/P (MAP) 118/58 (78) 132/68 (89) 122/53 (76) Pulse Ox 99 100 96 97 O2 Delivery Nasal Cannula Nasal Cannula Nasal Cannula Nasal Cannula O2 Flow Rate 4.0 4.0 4.0 4.0 08/04/21 08/04/21 08/04/21 08/05/21 19:58 21:19 22:36 02:48 Temp 98.3 98.0 98.3 98.0 Pulse 99 65 Resp 18 16 B/P (MAP) 139/71 (93) 134/63 (86) Pulse Ox 96 97 100 O2 Delivery Nasal Cannula Nasal Cannula Nasal Cannula Nasal Cannula O2 Flow Rate 4.0 4.0 4.0 4.0 08/05/21 08/05/21 08/05/21 07:00 07:50 08:28 Temp 97.5 97.5 Pulse 84 65 Resp 18 B/P (MAP) 159/70 (99) 134/63 Pulse Ox 96 92 O2 Delivery Nasal Cannula Room Air O2 Flow Rate 4.0 Intake and Output 08/04/21 08/04/21 08/05/21 15:00 23:00 07:00 Intake Total 280 ml 240 ml 200 ml Output Total 1100 ml 1250 ml Balance 280 ml -860 ml -1050 ml MANUEL GRANGER MD Aug 05, 2021 09:35
--- NOTE | 2021-08-05 10:39 | PDOC ---
[employer] PROGRESS NOTE Date of Service DOS: DATE: 08/05/21 TIME: 10:36 Chief Complaint Chief Complaint Pulmonary embolism bilateral upper lobes seen on VQ scan Erythroderma psoriasis, mild to moderate Blood cultures positive for diphtheroids species 1 out of 4 bottles Acute hypoxic respiratory failure Concern for CAP, possible gram-negative organisms Acute on chronic kidney injury, no baseline established Hypomagnesemia Tobacco misuse History of urinary retention, concerning for BPH Nodular opacity in the right upper lung, will need CT scanning at some point as outpatient Positive rheumatoid factor Hyperuricemia, likely related to chronic kidney disease instead of gout Continue with heparin drip consider transition to Eliquis Pending YOKO We will start triamcinolone cream for dermatitis Suspicion for vasculitides will obtain HIV, RPR, acute hepatitis panel, RF and YOKO Pulmonology consult recommending to start full dose anticoagulation ID consult for positive blood cultures start empiric IV antibiotics Sputum cultures Pending Legionella urine antigen and MRSA screen Nephrology consult Strict I's and O's We will continue Vázquez and start Flomax for now Avoid nephrotoxic agents Monitor urine output Post void bladder scan to rule out obstructive uropathy Pending renal ultrasound O2 supplementation to maintain O2 saturations 92% Heparin for DVT prophylaxis ADA diet CODE STATUS full Discussed with RN and SW Disposition patient will need outpatient referral to urology for TURP and 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 Patient is a poor historian and he also has a long history of smoking. 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 Patient also has been endorsing a productive cough but he feels relatively fine and does not have any flulike symptoms. Denies fevers, nausea vomiting, abdominal pain, hematuria or bloody bowel movements. When his Váqzuez was placed he states that he had low flow did not have any relief from voiding. He does state that his urine was dribbling at the time of H&P. No history of prostate cancer. He also endorses that he has been having flaky skin throughout his whole body ever since he was diagnosed with his kidney issue. 08/04/2021 No acute events overnight. Patient has some nasal congestion and is coughing quite a bit. Does not feel much different compared to yesterday. Skin flaking is improved. Redness throughout the body is also improved. Creatinine still remains elevated at 4.4. Patient does have adequate urine output. Low magnesium 1.7 today will replace with 1 g of IV magnesium. Patient's chart, labs, images were reviewed and discussed with RN 08/05/2021 No acute events overnight. Patient seen and examined bedside. Continues to have sloughing off of his superficial skin and feels irritated from that. He does notice improvement of his lesions in his bilateral ankles. Redness have decreased as well. Records from outside hospital reviewed and he was admitted in [facility] in March with creatinine of 18 he did have bilateral hydronephrosis and postobstructive diuresis. Creatinine was 8.1 at time of discharge. He was placed a Vázquez and he was supposed to follow-up with urology for TURP as an outpatient. 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 Patient would benefit from keeping the Vázquez in place upon discharge before seeing the urologist. Patient's chart, labs, images were reviewed and discussed with RN Vitals/I&O Vitals/I&O: Vital Signs Date Time Temp Pulse Resp B/P (MAP) Pulse Ox O2 Delivery O2 Flow Rate FiO2 08/05/21 08:28 65 134/63 08/05/21 08:00 Nasal Cannula 4.0 08/05/21 07:50 92 08/05/21 07:00 97.5 18 97.5 I & O 08/04/21 08/04/21 08/05/21 15:00 23:00 07:00 Intake Total 280 ml 240 ml 200 ml Output Total 1100 ml 1250 ml Balance 280 ml -860 ml -1050 ml Physical Exam Physical Exam: General: Well developed, well nourished, no acute distress, well appearing on Nasal O2 by NC HEENT: Pupils equally round and reactive to light, EOMI, normal conjunctiva,no oral ulcers Neck: Supple, no nuchal rigidity, no JVD, no tenderness Cardiac: RRR, no murmurs, Chest/Lungs: CTAB, no wheezing Abdomen: soft, non-distended, no guarding, non-tender BS + Back: No tenderness Extremities: Flaky skin throughout his extremities. Improved, . No blanching erythema.NO ulcerations Neuro: Alert and oriented x 4, no focal deficits, normal speech Vázquez in place changed this hosp General: Alert, Oriented X3, Cooperative, No acute distress Heart: Regular rate (SR), Other (distant heart sounds) Lungs: Crackles Abdomen: Soft Extremities: No cyanosis, No edema Skin: Other (generalized skin desqumation) Labs Labs: Laboratory Tests Test 08/04/21 17:10 08/05/21 00:40 08/05/21 08:15 Heparin Anti-Xa Act, Unfractionated 0.24 IU/mL (0.30-0.70) 0.42 IU/mL (0.30-0.70) 0.48 IU/mL (0.30-0.70) Sodium Level 140 mmol/L (136-145) Potassium Level 4.4 mmol/L (3.5-5.1) Chloride Level 105 mmol/L (98-107) Carbon Dioxide Level 24 mmol/L (21-32) Anion Gap 11 (6-14) Blood Urea Nitrogen 65 mg/dL (8-26) Creatinine 4.0 mg/dL (0.7-1.3) Estimated GFR (Cockcroft-Gault) 15.3 Glucose Level 113 mg/dL (70-99) Calcium Level 8.2 mg/dL (8.5-10.1) Assessment and Plan Assessmemt and Plan Problems Medical Problems: (1) Emphysema lung Status: Acute (2) Nodule of right lung Status: Acute (3) Smoking addiction Status: Acute Comment Review of Relevant I have reviewed the following items jose (where applicable) has been applied. Medications: Current Medications Medications (Trade) Dose Ordered Sig/Lorenza Route PRN Reason Start Time Stop Time Status Last Admin Dose Admin Fluticasone Propionate (Flonase) 2 spray DAILY NS 08/04/21 12:30 08/05/21 08:28 Albuterol/ Ipratropium (Duoneb) 3 ml RTQID NEB 08/04/21 13:00 08/05/21 07:53 Budesonide (Pulmicort) 0.5 mg RTBID NEB 08/04/21 13:00 08/05/21 07:53 Justifications for Admission Other Justification Acute renal failure RENNY BUSH MD Aug 05, 2021 10:39
[2021-08-05 11:00] VITALS: BP 127/66
[2021-08-05] MEDS: cefTRIAXone IV Push 1 GM VIAL. IVP SCH (11:50)
--- NOTE | 2021-08-05 12:44 | PDOC ---
DATE OF SERVICE DATE: 08/05/21 TIME: 12:41 SUBJECTIVE ROS Stable, no concerns voiced by nursing OBJECTIVE Vital Signs Vital Signs Date Time Temp Pulse Resp B/P (MAP) Pulse Ox O2 Delivery O2 Flow Rate FiO2 08/05/21 11:33 Room Air 08/05/21 11:00 98.1 87 18 127/66 (86) 96 4.0 98.1 I & 0 Intake and Output 08/05/21 07:00 Intake Total 720 ml Output Total 2350 ml Balance -1630 ml Intake Oral 620 ml IV Total 100 ml Output Urine Total 2350 ml PHYSICAL EXAM Physical Exam General NAD, Propped in bed, HEEN OM moist, On o2 by NC \ Neck Supple Lungs CTA , Non labored CVS1 S2 Abd Soft, NT Indwelling Rolle Neuro Grossly Normal, No focal deficit Psych Cooperative Derm No Rash DIAGNOSIS/ASSESSMENT Assessment & Plan BRANDY on CKD ; .Rolle replaced in the ER Non Oliguric (3.6----->4.4-->4.0 ) . Renal US @ [facility] unremarkable . 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 Cr 8.1 at the time of discharge . Plan for TURP as outpatient Apr 2021 Cr 4.5 seen in the ER , dced with recommendations to follow with Urology ; Jul 10 Cr 4.8 (All this Info also copied from this note to Hospitalist note as well) CKD stage 4 - per Hx Obtained from patient Dx in February 2021 during Hospi talization for unable to Void , requiring Rolle placement. Denies Past Hx . No HTN/DM Hospitalized again in [place] approx 1 month back with decline in Kidney function from 18 to 9%, Pt unable to give any details Etiology Suspect ? WRIGHT / Urinary retention (indwelling rolle), details unavailable Use of NSAID's SVT/Atrial flutter- in March 2021 Renal cyst- Minimally complex 4.0 cm right renal cyst. Recommend Urology Follow up Hypomagnesemia- normal UTI- Cx CW Colonization . Defer to primary Ac resp Failure-stable CxR Nodular opacity right upper lung can be further assessed by nonemergent CT. Recd 1 dose of COVID vaccine, due for 2nd . Possible chronic diastolic CHF: compensated. COMMENT/RELEVANT DATA Meds Current Medications Medications (Trade) Dose Ordered Sig/Lorenza Start Time Stop Time Status Last Admin Dose Admin Acetaminophen (Tylenol) 650 mg PRN Q4HRS PRN 08/01/21 20:45 08/02/21 20:44 DC Albuterol/ Ipratropium (Duoneb) 3 ml RTQID 08/04/21 13:00 08/05/21 11:33 3 ML Azithromycin (Zithromax) 250 mg Q24H 08/03/21 16:00 08/06/21 16:01 08/04/21 15:16 250 MG Azithromycin 500 mg/Sodium Chloride 250 ml @ 250 mls/hr Q24H 08/02/21 13:00 08/03/21 12:54 DC 08/02/21 16:16 250 MLS/HR Budesonide (Pulmicort) 0.5 mg RTBID 08/04/21 13:00 08/05/21 07:53 0.5 MG Calamine (Calamine Lotion) 1 rosalinda PRN Q4HRS PRN 08/02/21 13:00 08/04/21 08:38 1 ROSALINDA Ceftriaxone Sodium (Rocephin) 1 gm Q24H 08/02/21 13:00 08/05/21 11:50 1 GM Dextrose (Dextrose 50%-Water Syringe) 12.5 gm PRN Q15MIN PRN 08/01/21 19:30 Docusate Sodium (Colace) 100 mg PRN DAILY PRN 08/01/21 19:30 Fluticasone Propionate (Flonase) 2 spray DAILY 08/04/21 12:30 08/05/21 08:28 2 SPRAY Furosemide (Lasix) 40 mg 1X ONCE 08/01/21 19:00 08/01/21 19:01 DC 08/01/21 19:09 40 MG Heparin Sodium (Porcine) (Heparin Sodium) 3,100 unit PRN Q6HRS PRN 08/03/21 12:00 08/04/21 18:29 3,100 UNIT Heparin Sodium/ Dextrose 250 ml @ 12.352 mls/ hr CONT PRN 08/03/21 12:00 08/05/21 08:33 20.844 MLS/HR Info (Anti-Coagulation Monitoring By Pharmacy) 1 each PRN DAILY PRN 08/03/21 14:30 08/03/21 14:25 1 EACH Lactobacillus Rhamnosus (Culturelle) 1 cap BID 08/02/21 21:00 08/05/21 08:27 1 CAP Lorazepam (Ativan Inj) 0.25 mg PRN Q4HRS PRN 08/01/21 19:30 Lorazepam (Ativan) 0.5 mg PRN Q6HRS PRN 08/01/21 19:30 Magnesium Sulfate 50 ml @ 25 mls/hr 1X ONCE 08/02/21 09:30 08/02/21 11:29 DC 08/02/21 13:09 25 MLS/HR Magnesium Sulfate/ Dextrose 100 ml @ 100 mls/hr 1X ONCE 08/04/21 10:00 08/04/21 10:59 DC 08/04/21 09:55 100 MLS/HR Metoprolol Succinate (Toprol Xl) 25 mg DAILY 08/02/21 13:00 08/05/21 08:28 25 MG Morphine Sulfate (Morphine Sulfate) 2 mg PRN Q2HR PRN 08/01/21 20:45 08/02/21 20:44 DC Ondansetron HCl (Zofran) 4 mg PRN Q8HRS PRN 08/01/21 20:45 08/02/21 20:44 DC Prochlorperazine Edisylate (Compazine) 10 mg PRN Q6HRS PRN 08/01/21 19:30 Sennosides (Senna) 17.2 mg PRN BID PRN 08/01/21 19:30 Sodium Chloride (Saline Mist Nasal) 1 rosalinda PRN Q1HR PRN 08/04/21 11:30 Tamsulosin HCl (Flomax) 0.4 mg QHS 08/02/21 21:00 08/04/21 20:46 0.4 MG Triamcinolone Acetonide (Kenalog 0.1%) 1 rosalinda BID 08/03/21 21:00 08/05/21 08:29 1 ROSALINDA Zolpidem Tartrate (Ambien) 2.5 mg PRN QHS PRN 08/01/21 19:30 Lab Laboratory Tests Test 08/04/21 17:10 08/05/21 00:40 11/7/21 08:15 Heparin Anti-Xa Act, Unfractionated 0.24 IU/mL (0.30-0.70) 0.42 IU/mL (0.30-0.70) 0.48 IU/mL (0.30-0.70) Sodium Level 140 mmol/L (136-145) Potassium Level 4.4 mmol/L (3.5-5.1) Chloride Level 105 mmol/L (98-107) Carbon Dioxide Level 24 mmol/L (21-32) Anion Gap 11 (6-14) Blood Urea Nitrogen 65 mg/dL (8-26) Creatinine 4.0 mg/dL (0.7-1.3) Estimated GFR (Cockcroft-Gault) 15.3 Glucose Level 113 mg/dL (70-99) Calcium Level 8.2 mg/dL (8.5-10.1) Results All relevant outside records, renal labs, imaging studies, telemetry/EKG's were reviewed. Justicifation of Admission Dx: Justifications for Admission: Justification of Admission Dx: N/A BINDU SOLER MD Aug 05, 2021 12:44
[2021-08-05 14:41] VITALS: BP 137/65
[2021-08-05] MEDS: AZITHROMYCIN 250 MG TABLET. PO SCH (16:21)
[2021-08-05 19:19] VITALS: BP 126/67
[2021-08-05] MEDS: TAMSULOSIN 0.4 MG CAP.ER.24H. PO SCH (20:52)
[2021-08-05 22:37] VITALS: BP 145/61
[2021-08-06 02:53] VITALS: BP 144/67
[2021-08-06 06:58] LABS: ALBUMIN 2.4 g/dL (3.4-5.0); CALCIUM 7.8 mg/dL (8.5-10.1); CREATININE 3.7 mg/dL (0.7-1.3); GFR 16.7; PHOSPHORUS 4.1 mg/dL (2.6-4.7); POTASSIUM 4.1 mmol/L (3.5-5.1)
[2021-08-06 07:00] VITALS: BP 155/60
[2021-08-06] MEDS: METOPROLOL SUCC 24HR ER 25 MG TAB.ER.24H. PO SCH (07:24)
[2021-08-06] MEDS: LACTOBACILLUS RHAMNOSUS GG 1 CAPSULE. PO SCH ×2 (07:25→20:53)
[2021-08-06] MEDS: BUDESONIDE 0.5 MG/2 ML NEBU. NEB SCH ×2 (07:44→19:43)
[2021-08-06] MEDS: IPRATRPIUM/ALBUTEROL 0.5/2.5MG 3 ML NEBU. NEB SCH ×4 (07:44→19:43)
--- NOTE | 2021-08-06 08:34 | PDOC ---
PULMONARY PROGRESS NOTES DATE: 08/06/21 TIME: 08:29 Subjective on 02 feels better sob better has cough no cp Vitals Vital Signs Date Time Temp Pulse Resp B/P (MAP) Pulse Ox O2 Delivery O2 Flow Rate FiO2 08/06/21 07:45 94 Room Air 08/06/21 07:24 90 144/67 08/06/21 02:53 98.6 16 4.0 98.6 General: Alert, Oriented X4 HEENT: Other (nc at perrl) Lungs: Crackles Cardiovascular: S1, S2 Abdomen: Soft Neuro Exam: Alert Skin: Warm Labs Laboratory Tests Test 08/04/21 09:30 08/04/21 17:10 08/05/21 00:40 08/05/21 08:15 Heparin Anti-Xa Act, Unfractionated < 0.10 IU/mL (0.30-0.70) 0.24 IU/mL (0.30-0.70) 0.42 IU/mL (0.30-0.70) 0.48 IU/mL (0.30-0.70) Uric Acid 10.0 mg/dL (3.5-7.2) Sodium Level 140 mmol/L (136-145) Potassium Level 4.4 mmol/L (3.5-5.1) Chloride Level 105 mmol/L (98-107) Carbon Dioxide Level 24 mmol/L (21-32) Anion Gap 11 (6-14) Blood Urea Nitrogen 65 mg/dL (8-26) Creatinine 4.0 mg/dL (0.7-1.3) Estimated GFR (Cockcroft-Gault) 15.3 Glucose Level 113 mg/dL (70-99) Calcium Level 8.2 mg/dL (8.5-10.1) Test 08/06/21 05:00 Heparin Anti-Xa Act, Unfractionated 0.20 IU/mL (0.30-0.70) Sodium Level 142 mmol/L (136-145) Potassium Level 4.1 mmol/L (3.5-5.1) Chloride Level 108 mmol/L (98-107) Carbon Dioxide Level 26 mmol/L (21-32) Anion Gap 8 (6-14) Blood Urea Nitrogen 54 mg/dL (8-26) Creatinine 3.7 mg/dL (0.7-1.3) Estimated GFR (Cockcroft-Gault) 16.7 Glucose Level 105 mg/dL (70-99) Calcium Level 7.8 mg/dL (8.5-10.1) Phosphorus Level 4.1 mg/dL (2.6-4.7) Albumin 2.4 g/dL (3.4-5.0) Laboratory Tests Test 08/06/21 05:00 Heparin Anti-Xa Act, Unfractionated 0.20 IU/mL (0.30-0.70) Sodium Level 142 mmol/L (136-145) Potassium Level 4.1 mmol/L (3.5-5.1) Chloride Level 108 mmol/L (98-107) Carbon Dioxide Level 26 mmol/L (21-32) Anion Gap 8 (6-14) Blood Urea Nitrogen 54 mg/dL (8-26) Creatinine 3.7 mg/dL (0.7-1.3) Estimated GFR (Cockcroft-Gault) 16.7 Glucose Level 105 mg/dL (70-99) Calcium Level 7.8 mg/dL (8.5-10.1) Phosphorus Level 4.1 mg/dL (2.6-4.7) Albumin 2.4 g/dL (3.4-5.0) Medications Active Scripts Medications Dose Route/Sig Max Daily Dose Days Date Category No Known Medications Prior To Admisstion (Info) Each 1 Each MC DAILY 08/01/[address] reviewed 1. Scattered subtle tree-in-bud opacities involving bilateral lower lobes and to a lesser extent in the right middle lobe suggestive of infectious or inflammatory bronchiolitis. Recommend short interval follow-up in 3-6 months to assess resolution. 2. Severe centrilobular emphysema with extensive biapical fibrosis/scarring with indeterminate right upper lobe noncalcified nodules. Recommend attention on follow-up. 3. Indeterminate large left thyroid nodule measuring up to 3 cm. Recommend correlation with endocrine function and sonographic evaluation. Impression . IMPRESSION: 1. Acute hypoxemic respiratory failure, multifactorial. 2. Acute pulmonary embolism. 3. Acute exacerbation of chronic obstructive pulmonary disease. 4. Abnormal x-ray/ ct chest, revealing nodular opacity right upper lobe./ emphysema/ upper lobe scarring, lower lobe infiltrates 5. Tobacco dependent. 6. Urinary retention. Plan . 08/06 1. 02 titration 2. dc heparin , change to PO Eliquis 3. CT chest reviewed Scattered subtle tree-in-bud opacities involving bilateral lower lobes severe emphysema fu ct in 3 mo pfts as outpt 4. ct showed thyroid nodule shah per PCP. 5. Workup for hypercoagulable state.as OP 6. abx per id 7. cont BD and ICS 8. D/W PATIENT. HE IS FROM [place]. HE WILL F/U PCP/ PULMONARY THERE POST DC. AC 3-6 MONTHS discussed w pt 08/05 1. 02 titration 2. heparin gtt for treatment of pulmonary embolism. ? change DOAC 3. CT chest reviewed Scattered subtle tree-in-bud opacities involving bilateral lower lobes severe emphysema fu ct in 3 mo pfts as outpt 4. ct showed thyroid nodule shah per PCP. 5. Workup for hypercoagulable state. 6. abx per id 7. cont BD and ICS discussed w pt PLAN: 1. 02 titration 2. heparin gtt for treatment of pulmonary embolism. 3. CT chest reviewed Scattered subtle tree-in-bud opacities involving bilateral lower lobes severe emphysema fu ct in 3 mo pfts as outpt 4. ct showed thyroid nodule shah per PCP. 5. Workup for hypercoagulable state. 6. abx per id 7. add BD and ICS discussed w pt DANYELLE BELL MD Aug 06, 2021 08:34
--- NOTE | 2021-08-06 08:46 | PDOC ---
Infectious Disease Note Subjective: Subjective Patient without complaints Of with green sputum production no fevers Off O2 Vital Signs: Vital Signs Vital Signs Date Time Temp Pulse Resp B/P (MAP) Pulse Ox O2 Delivery O2 Flow Rate FiO2 08/06/21 07:45 94 Room Air 08/06/21 07:24 90 144/67 08/06/21 02:53 98.6 16 4.0 98.6 Physical Exam: PHYSICAL EXAM General: Well developed, well nourished, no acute distress, well appearing HEENT: Pupils equally round and reactive to light, EOMI, normal conjunctiva,no oral ulcers Neck: Supple, no nuchal rigidity, no JVD, no tenderness Cardiac: RRR, no murmurs, Chest/Lungs: Clear anteriorly Abdomen: soft, non-distended, no guarding, non-tender BS + Back: No tenderness Extremities: Flaky skin throughout his extremities. . No blanching erythema.NO ulcerations Neuro: Alert and oriented x 4, no focal deficits, normal speech Vázquez in place changed this hosp Medications: Inpatient Meds: Medications reviewed. Labs: Lab Laboratory Tests Test 08/06/21 05:00 Heparin Anti-Xa Act, Unfractionated 0.20 IU/mL (0.30-0.70) Sodium Level 142 mmol/L (136-145) Potassium Level 4.1 mmol/L (3.5-5.1) Chloride Level 108 mmol/L (98-107) Carbon Dioxide Level 26 mmol/L (21-32) Anion Gap 8 (6-14) Blood Urea Nitrogen 54 mg/dL (8-26) Creatinine 3.7 mg/dL (0.7-1.3) Estimated GFR (Cockcroft-Gault) 16.7 Glucose Level 105 mg/dL (70-99) Calcium Level 7.8 mg/dL (8.5-10.1) Phosphorus Level 4.1 mg/dL (2.6-4.7) Albumin 2.4 g/dL (3.4-5.0) Micro Blood culture negative Urine culture colonization PATIENT: KAYLYN CHANCEACCOUNT: [id number]#: [id number] : 1960 LOCATION: [address] [place] [address] AGE: 61 SEX: M EXAM STATUS: ADM IN ORD. PHYSICIAN: GOPAL MOLINA MD REASON: opacity on cxr PROCEDURE: CT CHEST WO CONTRAST EXAM: CT Chest without IV contrast INDICATION: Reason: opacity on cxr / Spl. Instructions: / History: TECHNIQUE: Multi-detector row CT images were acquired from the thoracic inlet through the upper abdomen without the use of IV contrast. Sagittal and coronal images were acquired from the transaxial data. All CT scans performed at this facility utilize dose optimization techniques as appropriate to the exam, including the following: Automated exposure control and adjustment of the mA and/or KV according to patient size (this includes techniques or standardized protocols for targeted exams where dose is indication/reason for exam). COMPARISON: Chest radiograph 08/01/2021 FINDINGS: The absence of IV contrast limits evaluation of soft tissue pathology. LUNGS/PLEURA: Severe emphysema. There is extensive biapical pleural thickening and parenchymal fibrosis/scarring with benign type calcifications interspersed with the majority of the nodular densities in the right upper lobe. There is also calcification associated with some of the nodularity in the left upper lobe. There is a 7 mm nodular opacity in the right upper lobe 18/2. There are two 3 mm noncalcified nodular opacities in the anterior right upper lobe seen on image 22/2. Subtle scattered tree-in-bud opacities involving bilateral lower lobes seen on images 30 through 46/2 on the right and on image 39/2 in the left lower lobe. Also very subtle tree-in-bud opacities in the right middle lobe. There is mild peribronchial thickening consistent with nonspecific bronchitis. Central airways patent. No pleural effusion or focal pleural lesion. MEDIASTINUM: No pathologic mediastinal or hilar adenopathy. The thoracic aorta and pulmonary arteries are normal in caliber. The heart is normal in size. No pericardial effusion. Mild calcified coronary atherosclerosis. There is a 3 cm circumscribed hypoattenuating nodule in the left thyroid lobe. Esophagus is unremarkable. AXILLA/SOFT TISSUE: No supraclavicular or axillary adenopathy. Regional soft tissues are within normal limits. Diffuse bilateral gynecomastia. OSSEOUS : Mild to moderate multilevel degenerative changes of the thoracolumbar spine. No acute or suspicious osseous abnormalities. ABDOMEN: The visualized portions of the upper abdomen are unremarkable. IMPRESSION: 1. Scattered subtle tree-in-bud opacities involving bilateral lower lobes and to a lesser extent in the right middle lobe suggestive of infectious or inflammatory bronchiolitis. Recommend short interval follow-up in 3-6 months to assess resolution. 2. Severe centrilobular emphysema with extensive biapical fibrosis/scarring with indeterminate right upper lobe noncalcified nodules. Recommend attention on follow-up. 3. Indeterminate large left thyroid nodule measuring up to 3 cm. Recommend correlation with endocrine function and sonographic evaluation. Electronically signed by: Praveen Ojeda DO (08/03/2021 4:32 PM) [facility] Objective: Assessment: 1. Bacteremia, 1/4 bottles present on admission, GPR corynebacterium Likely contaminant. 2. Leukocytosis. 3. Acute hypoxic respiratory failure,acute PE. Abnormal chest x-ray/CT chest revealing nodular opacity, emphysema, infiltrate 4. Acute kidney injury on chronic kidney disease. 5. Urinary retention -- chronic Vázquez changed during this admission.Urinary tract infection. Urine culture colonization. 6. Dermatitis. Infectious serologies remain negative 7. Tobaccoism Plan: Plan of Care 1. Continue ceftriaxone and doxycycline , will transition to p.o. before discharge which is planned tentatively for tomorrow 2. Monitor labs and cultures. 3. Avoid picking on skin lesions. Maintain local care. MANDO CALDERON MD Aug 06, 2021 08:46
[2021-08-06] MEDS: TRIAMCINOLONE ACETONIDE 0.1% TOPICAL CREAM 15GM TUBE. TP SCH ×2 (09:00→20:57)
[2021-08-06] MEDS: FLUTICASONE 50MCG/NASAL SPRAY 16GM BOTTLE. NS SCH (09:00)
[2021-08-06] MEDS: APIXABAN 5 MG TABLET. PO SCH ×2 (10:33→20:53)
--- NOTE | 2021-08-06 10:47 | PDOC ---
Renal-Progress Notes Subjective Notes Notes NO NEW COMPLAINTS History of Present Illness Hx of present illness STABLE Vitals Vitals Vital Signs Date Time Temp Pulse Resp B/P (MAP) Pulse Ox O2 Delivery O2 Flow Rate FiO2 08/06/21 07:45 94 Room Air 08/06/21 07:24 90 144/67 08/06/21 07:00 97.6 18 97.6 08/06/21 02:53 4.0 Weight Weight [ ] I.O. Intake and Output Intake and Output 08/06/21 07:00 Intake Total 2330 ml Output Total 3150 ml Balance -820 ml Intake Oral 2080 ml IV Total 250 ml Output Urine Total 3150 ml Labs Labs Laboratory Tests Test 08/06/21 05:00 Heparin Anti-Xa Act, Unfractionated 0.20 IU/mL (0.30-0.70) Sodium Level 142 mmol/L (136-145) Potassium Level 4.1 mmol/L (3.5-5.1) Chloride Level 108 mmol/L (98-107) Carbon Dioxide Level 26 mmol/L (21-32) Anion Gap 8 (6-14) Blood Urea Nitrogen 54 mg/dL (8-26) Creatinine 3.7 mg/dL (0.7-1.3) Estimated GFR (Cockcroft-Gault) 16.7 Glucose Level 105 mg/dL (70-99) Calcium Level 7.8 mg/dL (8.5-10.1) Phosphorus Level 4.1 mg/dL (2.6-4.7) Albumin 2.4 g/dL (3.4-5.0) Micro Micro Microbiology 08/01/21 Urine Culture - Final, Complete 08/01/21 Blood Culture - Preliminary, Resulted NO GROWTH AFTER 4 DAYS Review of Systems Constitutional: yes: weakness, alert, oriented Ears/Nose/Throat: Yes: no symptom reported Eyes: Yes: no symptom reported Pulmonary: Yes dyspnea Cardiovascular: Yes no symptom reported Gastrointestional: Yes: no symptom reported Genitourinary: Yes: no symptom reported Musculoskeletal: Yes: no symptom reported Skin: Yes no symptom reported Psychiatric/Neurological: Yes: no symptom reported Endocrine: Yes: no symptom reported Physical Exam General Appearance: no apparent distress Skin: warm Respiratory: bilateral CTA Heart: S1S2 Abdomen: soft, bowel sounds present Extremities: pulses present, no edema Neurology: alert, oriented, follow commands Assessment Assessment IMP CKD STAGE 4-CR OF 3.7 PULMONARY EMBOLIC AE COPD BACTEREMIA LEUCOCYTOSIS URINARY RETENTION URINARY TRACT INFECTION PLAN ONGOING TX FOR PE ANTIBIOTICS CONT WITH CHRONIC GRIFFIN USE CONT FLOMAX WILL NEED TO GET TURP ONCE BACK HOME IN [place] WILL FOLLOW TASHA SALAZAR MD Aug 06, 2021 10:47
[2021-08-06 11:00] VITALS: BP 125/57
--- NOTE | 2021-08-06 11:27 | PDOC ---
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 08/06/21 1126: CARDIO Progress Notes Date and Time Date of Service 08/06/21 Time of Evaluation 1120 Subjective Subjective: No Chest Pain, No shortness of breath, No Palpitations Vitals Vitals Vital Signs Date Time Temp Pulse Resp B/P (MAP) Pulse Ox O2 Delivery O2 Flow Rate FiO2 08/06/21 08:00 Room Air 08/06/21 07:45 94 08/06/21 07:24 90 144/67 08/06/21 07:00 97.6 18 97.6 08/06/21 02:53 4.0 Weight Weight [ ] Input and Output Intake and Output Intake and Output 08/06/21 07:00 Intake Total 2330 ml Output Total 3150 ml Balance -820 ml Intake Oral 2080 ml IV Total 250 ml Output Urine Total 3150 ml Laboratory Labs Laboratory Tests Test 08/06/21 05:00 Heparin Anti-Xa Act, Unfractionated 0.20 IU/mL (0.30-0.70) Sodium Level 142 mmol/L (136-145) Potassium Level 4.1 mmol/L (3.5-5.1) Chloride Level 108 mmol/L (98-107) Carbon Dioxide Level 26 mmol/L (21-32) Anion Gap 8 (6-14) Blood Urea Nitrogen 54 mg/dL (8-26) Creatinine 3.7 mg/dL (0.7-1.3) Estimated GFR (Cockcroft-Gault) 16.7 Glucose Level 105 mg/dL (70-99) Calcium Level 7.8 mg/dL (8.5-10.1) Phosphorus Level 4.1 mg/dL (2.6-4.7) Albumin 2.4 g/dL (3.4-5.0) Microbiology Micro Microbiology 08/01/21 Urine Culture - Final, Complete 08/01/21 Blood Culture - Preliminary, Resulted NO GROWTH AFTER 4 DAYS Review of Systems Constitutional: yes: weakness, alert, oriented Ears/Nose/Throat: Yes: no symptom reported Eyes: Yes: no symptom reported Pulmonary: Yes dyspnea Cardiovascular: Yes no symptom reported Gastrointestional: Yes: no symptom reported Genitourinary: Yes: no symptom reported Musculoskeletal: Yes: no symptom reported Skin: Yes no symptom reported Psychiatric/Neurological: Yes: no symptom reported Endocrine: Yes: no symptom reported Physical Exam HEENT: Neck Supple W Full Motion Chest: Symmetric LUNGS: Other (faint wheeze) Heart: RRR (SR) Abdomen: Soft N/T Extremities: No Calf Tenderness Neurology: alert, oriented, follow commands Assessment Assessment 1. Acute pulmonary embolism 2. BRANDY on CKD: unclear baseline nephrology following 3. Acute COPD exacerbation 4. Hypomagnesemia: replaced 5. Chronic diastolic CHF: Compensated 6. Chronic UTI with rolle with associated urinary retention 7. Mild CM: EF at 45-50%% Recommendations Anticoagulation per pulmonary team Low dose metoprolol Follow up with Cardiology when he gets back to [place] Smoking cessation Justicifation of Admission Dx: Justifications for Admission: Justification of Admission Dx: N/A KATHARINE GORDILLO MD 08/06/21 1708: CARDIO Progress Notes Assessment Assessment Patient seen and examined I agree with our nurse practitioners assessment and plan. Acute pulmonary embolism. Continuing anticoagulation. Followed by pulmonary. BRANDY on CKD: unclear baseline nephrology following. Creatinine mildly improved today. Acute COPD exacerbation. Improved. Continue present treatment. Hypomagnesemia: replaced Chronic diastolic CHF: Compensated Chronic UTI with rolle with associated urinary retention Mild CM: EF at 45-50%% [facility] APRN Aug 06, 2021 11:26 KATHARINE GORDILLO MD Aug 06, 2021 17:08
--- NOTE | 2021-08-06 12:41 | NUR ---
SS following up with discharge planning. SS reviewed pt chart and discussed with pt RN. Pt is currently on room air. COVID19 negative. Pt on IV Rocephin. No PT/OT needs. Discharge plan is currently to home when medically ready for discharge. SS will continue to follow for discharge planning.
[2021-08-06] MEDS: cefTRIAXone IV Push 1 GM VIAL. IVP SCH (14:45)
[2021-08-06] MEDS: AZITHROMYCIN 250 MG TABLET. PO SCH (14:45)
[2021-08-06 15:00] VITALS: BP 148/54
--- NOTE | 2021-08-06 15:02 | PDOC ---
[facility] PROGRESS NOTE Date of Service DOS: DATE: 08/06/21 TIME: 15:02 Chief Complaint Chief Complaint Pulmonary embolism bilateral upper lobes seen on VQ scan Erythroderma psoriasis, mild to moderate Blood cultures positive for diphtheroids species 1 out of 4 bottles Acute hypoxic respiratory failure Concern for CAP, possible gram-negative organisms Acute on chronic kidney injury, no baseline established Hypomagnesemia Tobacco misuse History of urinary retention, concerning for BPH Nodular opacity in the right upper lung, will need CT scanning at some point as outpatient Positive rheumatoid factor Hyperuricemia, likely related to chronic kidney disease instead of gout Continue with heparin drip consider transition to Eliquis Pending YOKO We will start triamcinolone cream for dermatitis Suspicion for vasculitides will obtain HIV, RPR, acute hepatitis panel, RF and YOKO Pulmonology consult recommending to start full dose anticoagulation ID consult for positive blood cultures start empiric IV antibiotics Sputum cultures Pending Legionella urine antigen and MRSA screen Nephrology consult Strict I's and O's We will continue Vázquez and start Flomax for now Avoid nephrotoxic agents Monitor urine output Post void bladder scan to rule out obstructive uropathy Pending renal ultrasound O2 supplementation to maintain O2 saturations 92% Heparin for DVT prophylaxis ADA diet CODE STATUS full Discussed with RN and SW Disposition patient will need outpatient referral to urology for TURP and 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 Patient is a poor historian and he also has a long history of smoking. 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 Patient also has been endorsing a productive cough but he feels relatively fine and does not have any flulike symptoms. Denies fevers, nausea vomiting, abdominal pain, hematuria or bloody bowel movements. When his Vázquez was placed he states that he had low flow did not have any relief from voiding. He does state that his urine was dribbling at the time of H&P. No history of prostate cancer. He also endorses that he has been having flaky skin throughout his whole body ever since he was diagnosed with his kidney issue. 08/04/2021 No acute events overnight. Patient has some nasal congestion and is coughing quite a bit. Does not feel much different compared to yesterday. Skin flaking is improved. Redness throughout the body is also improved. Creatinine still remains elevated at 4.4. Patient does have adequate urine output. Low magnesium 1.7 today will replace with 1 g of IV magnesium. Patient's chart, labs, images were reviewed and discussed with RN 08/05/2021 No acute events overnight. Patient seen and examined bedside. Continues to have sloughing off of his superficial skin and feels irritated from that. He does notice improvement of his lesions in his bilateral ankles. Redness have decreased as well. Records from outside hospital reviewed and he was admitted in [facility] in March with creatinine of 18 he did have bilateral hydronephrosis and postobstructive diuresis. Creatinine was 8.1 at time of discharge. He was placed a Vázquez and he was supposed to follow-up with urology for TURP as an outpatient. 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 Patient would benefit from keeping the Vázquez in place upon discharge before seeing the urologist. Patient's chart, labs, images were reviewed and discussed with RN Vitals/I&O Vitals/I&O: Vital Signs Date Time Temp Pulse Resp B/P (MAP) Pulse Ox O2 Delivery O2 Flow Rate FiO2 08/06/21 11:43 97 Room Air 08/06/21 11:00 97.4 83 20 125/57 (79) 97.4 08/06/21 02:53 4.0 I & O 08/05/21 08/05/21 08/06/21 15:00 23:00 07:00 Intake Total 540 ml 1290 ml 500 ml Output Total 1500 ml 1650 ml Balance 540 ml -210 ml -1150 ml Physical Exam Physical Exam: General: Well developed, well nourished, no acute distress, well appearing HEENT: Pupils equally round and reactive to light, EOMI, normal conjunctiva,no oral ulcers Neck: Supple, no nuchal rigidity, no JVD, no tenderness Cardiac: RRR, no murmurs, Chest/Lungs: Clear anteriorly Abdomen: soft, non-distended, no guarding, non-tender BS + Back: No tenderness Extremities: Flaky skin throughout his extremities. . No blanching erythema.NO ulcerations Neuro: Alert and oriented x 4, no focal deficits, normal speech Vázquez in place changed this hosp General: Alert, Oriented X3, Cooperative, No acute distress Heart: Regular rate (SR), Other (distant heart sounds) Lungs: Crackles Abdomen: Soft Extremities: No cyanosis, No edema Skin: Other (generalized skin desqumation) Labs Labs: Laboratory Tests Test 08/06/21 05:00 Heparin Anti-Xa Act, Unfractionated 0.20 IU/mL (0.30-0.70) Sodium Level 142 mmol/L (136-145) Potassium Level 4.1 mmol/L (3.5-5.1) Chloride Level 108 mmol/L (98-107) Carbon Dioxide Level 26 mmol/L (21-32) Anion Gap 8 (6-14) Blood Urea Nitrogen 54 mg/dL (8-26) Creatinine 3.7 mg/dL (0.7-1.3) Estimated GFR (Cockcroft-Gault) 16.7 Glucose Level 105 mg/dL (70-99) Calcium Level 7.8 mg/dL (8.5-10.1) Phosphorus Level 4.1 mg/dL (2.6-4.7) Albumin 2.4 g/dL (3.4-5.0) Assessment and Plan Assessmemt and Plan Problems Medical Problems: (1) Emphysema lung Status: Acute (2) Nodule of right lung Status: Acute (3) Smoking addiction Status: Acute Comment Review of Relevant I have reviewed the following items jose (where applicable) has been applied. Medications: Current Medications Medications (Trade) Dose Ordered Sig/Lorenza Route PRN Reason Start Time Stop Time Status Last Admin Dose Admin Apixaban (Eliquis) 10 mg BID PO 08/06/21 10:00 08/12/21 21:01 08/06/21 10:33 Justifications for Admission Other Justification Acute renal failure PETEY MATUTE MD Aug 06, 2021 15:02
[2021-08-06 19:11] LABS: ANA INTERP Negative (.)
[2021-08-06 19:32] VITALS: BP 142/60
[2021-08-06] MEDS: TAMSULOSIN 0.4 MG CAP.ER.24H. PO SCH (20:53)
[2021-08-06 22:55] VITALS: BP 168/67
[2021-08-07 02:41] VITALS: BP 90/76
[2021-08-07 06:24] LABS: CALCIUM 8.3 mg/dL (8.5-10.1); CREATININE 3.6 mg/dL (0.7-1.3); GFR 17.3; POTASSIUM 5.3 mmol/L (3.5-5.1)
[2021-08-07 07:39] VITALS: BP 142/75
[2021-08-07] MEDS ORDERED: IPRA4AER IH (07:52)
[2021-08-07] MEDS ORDERED: APIX5TAB PO (07:52)
[2021-08-07] MEDS ORDERED: DOXY100T PO (07:52)
[2021-08-07] MEDS ORDERED: TAMS0.4C97 PO (07:52)
[2021-08-07] MEDS ORDERED: METO-239 PO (07:52)
--- NOTE | 2021-08-07 07:58 | PDOC ---
Infectious Disease Note Subjective: Subjective Patient without complaints no fevers Off O2 Eager for discharge Vital Signs: Vital Signs Vital Signs Date Time Temp Pulse Resp B/P (MAP) Pulse Ox O2 Delivery O2 Flow Rate FiO2 08/07/21 07:39 98.4 101 18 142/75 (97) 98 Room Air 98.4 Physical Exam: PHYSICAL EXAM General: Well developed, well nourished, no acute distress, well appearing HEENT: Pupils equally round and reactive to light, EOMI, normal conjunctiva,no oral ulcers Neck: Supple, no nuchal rigidity, no JVD, no tenderness Cardiac: RRR, no murmurs, Chest/Lungs: Clear anteriorly Abdomen: soft, non-distended, no guarding, non-tender BS + Back: No tenderness Extremities: Flaky skin throughout his extremities. . No blanching erythema.NO ulcerations Neuro: Alert and oriented x 4, no focal deficits, normal speech Vázquez in place changed this hosp Medications: Inpatient Meds: Medications reviewed. Labs: Lab Laboratory Tests Test 08/07/21 04:30 Sodium Level 142 mmol/L (136-145) Potassium Level 5.3 mmol/L (3.5-5.1) Chloride Level 108 mmol/L (98-107) Carbon Dioxide Level 25 mmol/L (21-32) Anion Gap 9 (6-14) Blood Urea Nitrogen 50 mg/dL (8-26) Creatinine 3.6 mg/dL (0.7-1.3) Estimated GFR (Cockcroft-Gault) 17.3 Glucose Level 106 mg/dL (70-99) Calcium Level 8.3 mg/dL (8.5-10.1) Micro Blood culture negative Urine culture colonization PATIENT: KAYLYN CHANCEACCOUNT: [id number]#: [id number] : 1960 LOCATION: [address] [place] [address] AGE: 61 SEX: M EXAM STATUS: ADM IN ORD. PHYSICIAN: GOPAL MOLINA MD REASON: opacity on cxr PROCEDURE: CT CHEST WO CONTRAST EXAM: CT Chest without IV contrast INDICATION: Reason: opacity on cxr / Spl. Instructions: / History: TECHNIQUE: Multi-detector row CT images were acquired from the thoracic inlet through the upper abdomen without the use of IV contrast. Sagittal and coronal images were acquired from the transaxial data. All CT scans performed at this facility utilize dose optimization techniques as appropriate to the exam, i ncluding the following: Automated exposure control and adjustment of the mA and/or KV according to patient size (this includes techniques or standardized protocols for targeted exams where dose is indication/reason for exam). COMPARISON: Chest radiograph 08/01/2021 FINDINGS: The absence of IV contrast limits evaluation of soft tissue pathology. LUNGS/PLEURA: Severe emphysema. There is extensive biapical pleural thickening and parenchymal fibrosis/scarring with benign type calcifications interspersed with the majority of the nodular densities in the right upper lobe. There is also calcification associated with some of the nodularity in the left upper lobe. There is a 7 mm nodular opacity in the right upper lobe 18/2. There are two 3 mm noncalcified nodular opacities in the anterior right upper lobe seen on image 22/2. Subtle scattered tree-in-bud opacities involving bilateral lower lobes seen on images 30 through 46/2 on the right and on image 39/2 in the left lower lobe. Also very subtle tree-in-bud opacities in the right middle lobe. There is mild peribronchial thickening consistent with nonspecific bronchitis. Central airways patent. No pleural effusion or focal pleural lesion. MEDIASTINUM: No pathologic mediastinal or hilar adenopathy. The thoracic aorta and pulmonary arteries are normal in caliber. The heart is normal in size. No pericardial effusion. Mild calcified coronary atherosclerosis. There is a 3 cm circumscribed hypoattenuating nodule in the left thyroid lobe. Esophagus is unremarkable. AXILLA/SOFT TISSUE: No supraclavicular or axillary adenopathy. Regional soft tissues are within normal limits. Diffuse bilateral gynecomastia. OSSEOUS : Mild to moderate multilevel degenerative changes of the thoracolumbar spine. No acute or suspicious osseous abnormalities. ABDOMEN: The visualized portions of the upper abdomen are unremarkable. IMPRESSION: 1. Scattered subtle tree-in-bud opacities involving bilateral lower lobes and to a lesser extent in the right middle lobe suggestive of infectious or inflammatory bronchiolitis. Recommend short interval follow-up in 3-6 months to assess resolution. 2. Severe centrilobular emphysema with extensive biapical fibrosis/scarring with indeterminate right upper lobe noncalcified nodules. Recommend attention on follow-up. 3. Indeterminate large left thyroid nodule measuring up to 3 cm. Recommend correlation with endocrine function and sonographic evaluation. Electronically signed by: Praveen Ojeda DO (08/03/2021 4:32 PM) [facility] Objective: Assessment: 1. Bacteremia, 1/4 bottles present on admission, GPR corynebacterium Likely contaminant. 2. Leukocytosis. Improving 3. Acute hypoxic respiratory failure,acute PE. Abnormal chest x-ray/CT chest revealing nodular opacity, emphysema, infiltrate 4. Acute kidney injury on chronic kidney disease. 5. Urinary retention -- chronic Vázquez changed during this admission.. Urine culture colonization. 6. Dermatitis. Infectious serologies remain negative 7. Tobaccoism Plan: Plan of Care Dose ceftriaxone today before discharge Okay to discharge on doxycycline for 5 days as planned Follow-up with primary care Avoid scratching of skin Maintain hygiene Patient is planning to return home in [place] upon discharge Discussed with MANDO FOSS MD Aug 07, 2021 07:58
[2021-08-07] MEDS: IPRATRPIUM/ALBUTEROL 0.5/2.5MG 3 ML NEBU. NEB SCH ×2 (08:13→11:45)
[2021-08-07] MEDS: BUDESONIDE 0.5 MG/2 ML NEBU. NEB SCH (08:13)
--- NOTE | 2021-08-07 08:25 | PDOC ---
[facility] MERLY 08/07/21 0825: CARDIO Progress Notes Date and Time Date of Service 08/07/21 Time of Evaluation 1110 Subjective Subjective: No Chest Pain, No shortness of breath, No Palpitations, No Dizziness Vitals Vitals Vital Signs Date Time Temp Pulse Resp B/P (MAP) Pulse Ox O2 Delivery O2 Flow Rate FiO2 08/07/21 08:16 95 Room Air 08/07/21 07:39 98.4 101 18 142/75 (97) 98.4 Weight Weight [ ] Input and Output Intake and Output Intake and Output 08/07/21 07:00 Intake Total 1680 ml Output Total 3525 ml Balance -1845 ml Intake Oral 1680 ml Output Urine Total 3525 ml Laboratory Labs Laboratory Tests Test 08/07/21 04:30 Sodium Level 142 mmol/L (136-145) Potassium Level 5.3 mmol/L (3.5-5.1) Chloride Level 108 mmol/L (98-107) Carbon Dioxide Level 25 mmol/L (21-32) Anion Gap 9 (6-14) Blood Urea Nitrogen 50 mg/dL (8-26) Creatinine 3.6 mg/dL (0.7-1.3) Estimated GFR (Cockcroft-Gault) 17.3 Glucose Level 106 mg/dL (70-99) Calcium Level 8.3 mg/dL (8.5-10.1) Microbiology Micro Microbiology 08/01/21 Urine Culture - Final, Complete 08/01/21 Blood Culture - Final, Complete NO GROWTH AFTER 5 DAYS Review of Systems Constitutional: yes: weakness, alert, oriented Ears/Nose/Throat: Yes: no symptom reported Eyes: Yes: no symptom reported Pulmonary: Yes dyspnea Cardiovascular: Yes no symptom reported Gastrointestional: Yes: no symptom reported Genitourinary: Yes: no symptom reported Musculoskeletal: Yes: no symptom reported Skin: Yes no symptom reported Psychiatric/Neurological: Yes: no symptom reported Endocrine: Yes: no symptom reported Physical Exam HEENT: Neck Supple W Full Motion Chest: Symmetric LUNGS: Other (diminished bases) Heart: RRR (SR) Abdomen: Soft N/T Extremities: No Calf Tenderness Neurology: alert, oriented, follow commands Assessment Assessment 1. Acute pulmonary embolism 2. BRANDY on CKD: unclear baseline nephrology following 3. Acute COPD exacerbation 4. Hypomagnesemia: replaced 5. Chronic diastolic CHF: Compensated 6. Chronic UTI with rolle with associated urinary retention 7. Mild CM: EF at 45-50%% Recommendations On Eliquis for stroke prophylaxis Low dose metoprolol Follow up with Cardiology when he gets back to [place] Smoking cessation Justicifation of Admission Dx: Justifications for Admission: Justification of Admission Dx: N/A KATHARINE GORDILLO MD 08/07/21 1803: CARDIO Progress Notes Assessment Assessment Patient seen and examined. I agree with our nurse practitioners assessment and plan. Acute pulmonary embolism. Continuing on Eliquis. BRANDY on CKD: unclear baseline. nephrology following Acute COPD exacerbation. Improved. Hypomagnesemia: replaced Chronic diastolic CHF: Compensated Chronic UTI with rolle with associated urinary retention Mild CM: EF at 45-50%. Follow-up with his physicians in [place]. SUGEY PARISH APRN Aug 07, 2021 08:25 KATHARINE GORDILLO MD Aug 07, 2021 18:03
[2021-08-07] MEDS: LACTOBACILLUS RHAMNOSUS GG 1 CAPSULE. PO SCH (08:44)
[2021-08-07] MEDS: METOPROLOL SUCC 24HR ER 25 MG TAB.ER.24H. PO SCH (08:44)
[2021-08-07] MEDS: APIXABAN 5 MG TABLET. PO SCH (08:45)
[2021-08-07] MEDS ORDERED: SODIUM POLYSTYRENE SULFON/SORB 15 GM/60 ML ORAL.SUSP. PO ONE (10:00)
--- NOTE | 2021-08-07 10:10 | NUR ---
SS following up with discharge planning. SS reviewed pt chart and discussed with pt RN. Pt is currently on room air. COVID19 negative. No PT/OT needs. Discharge order on the chart for home with self care. Eliquis card provided.
[2021-08-07 10:28] VITALS: BP 150/70
--- NOTE | 2021-08-07 10:36 | PDOC ---
Renal-Progress Notes Subjective Notes Notes WANTS TO GO HOME History of Present Illness Hx of present illness STABLE Vitals Vitals Vital Signs Date Time Temp Pulse Resp B/P (MAP) Pulse Ox O2 Delivery O2 Flow Rate FiO2 08/07/21 10:28 98.2 97 18 150/70 (96) 96 Room Air 98.2 Weight Weight [ ] I.O. Intake and Output Intake and Output 08/07/21 07:00 Intake Total 1680 ml Output Total 3525 ml Balance -1845 ml Intake Oral 1680 ml Output Urine Total 3525 ml Labs Labs Laboratory Tests Test 08/07/21 04:30 Sodium Level 142 mmol/L (136-145) Potassium Level 5.3 mmol/L (3.5-5.1) Chloride Level 108 mmol/L (98-107) Carbon Dioxide Level 25 mmol/L (21-32) Anion Gap 9 (6-14) Blood Urea Nitrogen 50 mg/dL (8-26) Creatinine 3.6 mg/dL (0.7-1.3) Estimated GFR (Cockcroft-Gault) 17.3 Glucose Level 106 mg/dL (70-99) Calcium Level 8.3 mg/dL (8.5-10.1) Micro Micro Microbiology 08/01/21 Urine Culture - Final, Complete 08/01/21 Blood Culture - Final, Complete NO GROWTH AFTER 5 DAYS Review of Systems Constitutional: yes: weakness, alert, oriented Ears/Nose/Throat: Yes: no symptom reported Eyes: Yes: no symptom reported Pulmonary: Yes dyspnea Cardiovascular: Yes no symptom reported Gastrointestional: Yes: no symptom reported Genitourinary: Yes: no symptom reported Musculoskeletal: Yes: no symptom reported Skin: Yes no symptom reported Psychiatric/Neurological: Yes: no symptom reported Endocrine: Yes: no symptom reported Physical Exam General Appearance: no apparent distress Skin: warm Respiratory: bilateral CTA Heart: S1S2 Abdomen: soft, bowel sounds present Extremities: pulses present, no edema Neurology: alert, oriented, follow commands Assessment Assessment IMP CKD STAGE 4-CR OF 3.6 MILD HYPERKALEMIA PULMONARY EMBOLIC AE COPD BACTEREMIA LEUCOCYTOSIS URINARY RETENTION URINARY TRACT INFECTION PLAN KAYEXALATE ONGOING TX FOR PE ANTIBIOTICS CONT WITH CHRONIC GRIFFIN USE CONT FLOMAX WILL NEED TO GET TURP ONCE BACK HOME IN [place] WILL FOLLOW POSSIBLE D/C TASHA SALAZAR MD Aug 07, 2021 10:36
--- NOTE | 2021-08-07 11:16 | PDOC3 ---
Discharge Summary Visit Information Date of Admission: Aug 01, 2021 Date of Discharge: Aug 07, 2021 Final Diagnosis Pulmonary embolism bilateral upper lobes seen on VQ scan Erythroderma psoriasis, mild to moderate Blood cultures positive for diphtheroids species 1 out of 4 bottles Acute hypoxic respiratory failure Concern for CAP, possible gram-negative organisms Acute on chronic kidney injury, no baseline established Hypomagnesemia Tobacco misuse History of urinary retention, concerning for BPH Nodular opacity in the right upper lung, will need CT scanning at some point as outpatient Positive rheumatoid factor Hyperuricemia, likely related to chronic kidney disease instead of gout Problems Medical Problems: (1) Emphysema lung Status: Acute (2) Nodule of right lung Status: Acute (3) Smoking addiction Status: Acute Brief Hospital Course Allergies Allergies Coded Allergies Type Severity Reaction Last Updated Verified No Known Drug Allergies 08/01/21 No Vital Signs Vital Signs Date Time Temp Pulse Resp B/P (MAP) Pulse Ox O2 Delivery O2 Flow Rate FiO2 08/07/21 10:28 98.2 97 18 150/70 (96) 96 Room Air 98.2 Lab Results Laboratory Tests Test 08/06/21 05:00 08/07/21 04:30 Heparin Anti-Xa Act, Unfractionated 0.20 IU/mL (0.30-0.70) Sodium Level 142 mmol/L (136-145) 142 mmol/L (136-145) Potassium Level 4.1 mmol/L (3.5-5.1) 5.3 mmol/L (3.5-5.1) Chloride Level 108 mmol/L (98-107) 108 mmol/L (98-107) Carbon Dioxide Level 26 mmol/L (21-32) 25 mmol/L (21-32) Anion Gap 8 (6-14) 9 (6-14) Blood Urea Nitrogen 54 mg/dL (8-26) 50 mg/dL (8-26) Creatinine 3.7 mg/dL (0.7-1.3) 3.6 mg/dL (0.7-1.3) Estimated GFR (Cockcroft-Gault) 16.7 17.3 Glucose Level 105 mg/dL (70-99) 106 mg/dL (70-99) Calcium Level 7.8 mg/dL (8.5-10.1) 8.3 mg/dL (8.5-10.1) Phosphorus Level 4.1 mg/dL (2.6-4.7) Albumin 2.4 g/dL (3.4-5.0) Laboratory Tests Test 08/07/21 04:30 Sodium Level 142 mmol/L (136-145) Potassium Level 5.3 mmol/L (3.5-5.1) Chloride Level 108 mmol/L (98-107) Carbon Dioxide Level 25 mmol/L (21-32) Anion Gap 9 (6-14) Blood Urea Nitrogen 50 mg/dL (8-26) Creatinine 3.6 mg/dL (0.7-1.3) Estimated GFR (Cockcroft-Gault) 17.3 Glucose Level 106 mg/dL (70-99) Calcium Level 8.3 mg/dL (8.5-10.1) Brief Hospital Course Mr. Mendoza is a 61 old male with a chronic indwelling Vázquez catheter that was placed in February. He was confused, weak and dyspneic with cough. Pulm and ID consult, IV abx, change to PO on DC heparin gtt for PE, change to PO on dc start flomax, TURP plnaeed f/u planned in [place], where he lives Assessment Assessment Continue with heparin drip consider transition to Eliquis Pending YOKO We will start triamcinolone cream for dermatitis Suspicion for vasculitides will obtain HIV, RPR, acute hepatitis panel, RF and YOKO Pulmonology consult recommending to start full dose anticoagulation ID consult for positive blood cultures start empiric IV antibiotics Sputum cultures Pending Legionella urine antigen and MRSA screen Nephrology consult Strict I's and O's We will continue Vázquez and start Flomax for now Avoid nephrotoxic agents Monitor urine output Post void bladder scan to rule out obstructive uropathy Pending renal ultrasound O2 supplementation to maintain O2 saturations 92% Heparin for DVT prophylaxis ADA diet CODE STATUS full Discussed with RN and SW Disposition patient will need outpatient referral to urology for TURP and 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 DPOA: Discharge Information Condition at Discharge: Improved Follow Up: Weeks Disposition/Orders: D/C to Home Scheduled Apixaban (Eliquis) 5 Mg Tablet, 5 MG PO BID for Pulmonary embolism, #60 Ref 3 Prescribed by: PETEY MATUTE on 08/07/21 0752 Apixaban (Eliquis) 5 Mg Tablet, 10 MG PO BID for Pulmonary embolism, #14 for one week, then transition to 5mg BID Prescribed by: PETEY MATUTE on 08/07/21751 Doxycycline Hyclate (Doxycycline Hyclate) 100 Mg Tablet, 1 TAB PO BID for bronch itis, #10 Prescribed by: PETEY MATUTE on 08/07/21751 Info (No Known Medications Prior To Admisstion) Each, 1 EACH MC DAILY for reports no home meds , (Reported) Entered as Reported by: ABHISHEK WARE on 08/01/212150 Last Action: New Order on 08/01/212150 by ABHISHEK WARE Metoprolol Succinate (Metoprolol Succinate ( Xl )) 25 Mg Tab.er.24h, 25 MG PO DAILY for hypertension, #30 Ref 2 Prescribed by: PETEY MATUTE on 08/07/21751 Tamsulosin Hcl (Flomax) 0.4 Mg Cap.er.24h, 0.4 MG PO QHS for urinary retention, #30 Ref 2 Prescribed by: PETEY MATUTE on 08/07/21751 Scheduled PRN Ipratropium/Albuterol Sulfate (Combivent Respimat Inhal) 4 Gm Aer.w.adap, 1 INH IH QID PRN for SHORTNESS OF BREATH, #1 Prescribed by: PETEY MATUTE on 08/07/21751 Patient Instructions Patient Instructions > 30 min pt seen at [place] Justicifation of Admission Dx: Justifications for Admission: Justification of Admission Dx: N/A PETEY MATUTE MD Aug 07, 2021 11:16
--- NOTE | 2021-08-07 11:24 | PDOC ---
PULMONARY PROGRESS NOTES DATE: 08/07/21 TIME: 11:21 Subjective on 02 feels better sob better has cough no cp Vitals Vital Signs Date Time Temp Pulse Resp B/P (MAP) Pulse Ox O2 Delivery O2 Flow Rate FiO2 08/07/21 10:28 98.2 97 18 150/70 (96) 96 Room Air 98.2 General: Alert, Oriented X4 HEENT: Other (nc at perrl) Lungs: Crackles Cardiovascular: S1, S2 Abdomen: Soft Neuro Exam: Alert Skin: Warm Labs Laboratory Tests Test 08/06/21 05:00 08/07/21 04:30 Heparin Anti-Xa Act, Unfractionated 0.20 IU/mL (0.30-0.70) Sodium Level 142 mmol/L (136-145) 142 mmol/L (136-145) Potassium Level 4.1 mmol/L (3.5-5.1) 5.3 mmol/L (3.5-5.1) Chloride Level 108 mmol/L (98-107) 108 mmol/L (98-107) Carbon Dioxide Level 26 mmol/L (21-32) 25 mmol/L (21-32) Anion Gap 8 (6-14) 9 (6-14) Blood Urea Nitrogen 54 mg/dL (8-26) 50 mg/dL (8-26) Creatinine 3.7 mg/dL (0.7-1.3) 3.6 mg/dL (0.7-1.3) Estimated GFR (Cockcroft-Gault) 16.7 17.3 Glucose Level 105 mg/dL (70-99) 106 mg/dL (70-99) Calcium Level 7.8 mg/dL (8.5-10.1) 8.3 mg/dL (8.5-10.1) Phosphorus Level 4.1 mg/dL (2.6-4.7) Albumin 2.4 g/dL (3.4-5.0) Laboratory Tests Test 08/07/21 04:30 Sodium Level 142 mmol/L (136-145) Potassium Level 5.3 mmol/L (3.5-5.1) Chloride Level 108 mmol/L (98-107) Carbon Dioxide Level 25 mmol/L (21-32) Anion Gap 9 (6-14) Blood Urea Nitrogen 50 mg/dL (8-26) Creatinine 3.6 mg/dL (0.7-1.3) Estimated GFR (Cockcroft-Gault) 17.3 Glucose Level 106 mg/dL (70-99) Calcium Level 8.3 mg/dL (8.5-10.1) Medications Active Scripts Medications Dose Route/Sig Max Daily Dose Days Date Category No Known Medications Prior To Admisstion (Info) Each 1 Each MC DAILY 08/01/[address] reviewed 1. Scattered subtle tree-in-bud opacities involving bilateral lower lobes and to a lesser extent in the right middle lobe suggestive of infectious or inflammatory bronchiolitis. Recommend short interval follow-up in 3-6 months to assess resolution. 2. Severe centrilobular emphysema with extensive biapical fibrosis/scarring with indeterminate right upper lobe noncalcified nodules. Recommend attention on follow-up. 3. Indeterminate large left thyroid nodule measuring up to 3 cm. Recommend correlation with endocrine function and sonographic evaluation. Impression . IMPRESSION: 1. Acute hypoxemic respiratory failure, multifactorial. 2. Acute pulmonary embolism as evidenced from ventilation/perfusion scan. 3. Acute exacerbation of chronic obstructive pulmonary disease. 4. Abnormal x-ray/ ct chest, revealing nodular opacity right upper lobe./ emphysema/ upper lobe scarring, lower lobe infiltrates 5. Tobacco dependent. 6. Urinary retention. Plan . 08/07 1. 02 titration 2. PO Eliquis. Will remain on anticoagulation for at least 3 to [address] chest reviewed fu ct in 3 mo pfts as outpt 4. ct showed thyroid nodule shah per PCP. 5. Workup for hypercoagulable state.as OP 6. abx per id 7. cont BD and ICS 8. Patient is from [place]. Patient will be discharged home today. He is instructed to follow-up with his primary care doctor and a fur blowing machine attendant over there. He will need a follow-up CT chest regarding lung nodules. He will also needed follow-up ventilation/perfusion scan to see resolution of his pulmonary embolism. He will remain on Eliquis for at least 3 to 6 months. 08/06 1. 02 titration 2. dc heparin , change to PO Eliquis 3. CT chest reviewed Scattered subtle tree-in-bud opacities involving bilateral lower lobes severe emphysema fu ct in 3 mo pfts as outpt 4. ct showed thyroid nodule shah per PCP. 5. Workup for hypercoagulable state.as OP 6. abx per id 7. cont BD and ICS 8. D/W PATIENT. HE IS FROM [place]. HE WILL F/U PCP/ PULMONARY THERE POST DC. AC 3-6 MONTHS discussed w pt 08/05 1. 02 titration 2. heparin gtt for treatment of pulmonary embolism. ? change DOAC 3. CT chest reviewed Scattered subtle tree-in-bud opacities involving bilateral lower lobes severe emphysema fu ct in 3 mo pfts as outpt 4. ct showed thyroid nodule shah per PCP. 5. Workup for hypercoagulable state. 6. abx per id 7. cont BD and ICS discussed w pt PLAN: 1. 02 titration 2. heparin gtt for treatment of pulmonary embolism. 3. CT chest reviewed Scattered subtle tree-in-bud opacities involving bilateral lower lobes severe emphysema fu ct in 3 mo pfts as outpt 4. ct showed thyroid nodule shah per PCP. 5. Workup for hypercoagulable state. 6. abx per id 7. add BD and ICS discussed w pt DANYELLE BELL MD Aug 07, 2021 11:24
[2021-08-13] MEDS ORDERED: APIXABAN 5 MG TABLET. PO SCH (09:00)
== END 2021-08-07 12:55 | disposition home or self-care (01) | DRG 177 ==
LOC: ER 17:26 → 6 SOUTH 19:36
PROVIDERS: ADMIT Internal Medicine; ATTEND Internal Medicine
DX: J15.6 Pneumonia due to other Gram-negative bacteria (principal); I26.99 Other pulmonary embolism without acute cor pulmonale; J96.01 Acute respiratory failure with hypoxia; N17.9 Acute kidney failure, unspecified; I50.32 Chronic diastolic (congestive) heart failure; N39.0 Urinary tract infection, site not specified; N18.4 Chronic kidney disease, stage 4 (severe); E83.42 Hypomagnesemia; E87.5 Hyperkalemia; F17.210 Nicotine dependence, cigarettes, uncomplicated; J43.2 Centrilobular emphysema; J43.8 Other emphysema; L30.9 Dermatitis, unspecified; L40.9 Psoriasis, unspecified; M10.9 Gout, unspecified; Z20.822 Contact with and (suspected) exposure to COVID-19; Z71.6 Tobacco abuse counseling; N40.0 Benign prostatic hyperplasia without lower urinary tract symptoms
CPT/HCPCS: 36415; 36600; 51702; 71045; 71250; 76770; 78582; 80048; 80053; 80061; 80069; 81001; 82553; 82805; 83605; 83735; 83880; 84100; 84145; 84443; 84484; 84550; 85007; 85025; 85379; 85520; 85651; 86038; 86200; 86431; 86592; 86703; 86705; 86709; 86803; 87040; 87077; 87086; 87205; 87340; 87426; 87449; 87641; 87804; 93005; 93306; 94640; 94760; 96365; 96374; 96375; A9540; A9558; G0103; J0456; J0696; J1644; J1940; J3475; J7050; U0003; U0005; 99285-25; G0378; J7030; J7626